=== PATIENT | female | born 1945 | race Caucasian/White ===

== ENCOUNTER 2017-03-03 07:35 | Day surgery (SDC) | payer OTHER ==
[2017-03-03] MEDS ORDERED: PALONOSETRON HCL 0.25 MG in SODIUM CHLORIDE 50 ML IVPB ONE (10:00)
[2017-03-03] MEDS ORDERED: DEXAMETHASONE INJECTION 10 MG in SODIUM CHLORIDE 50 ML IVPB ONE (10:00)
[2017-03-03 10:13] LABS: BASOPHIL 0.4 % (0-2.0); EOSINOPHIL 3.6 % (0-4.5); MCH 24.8 pg (25.7-33.7); MCHC 31.6 g/dl (32.0-36.0); MEAN CELL VOLUME 78.6 fl (80-96); MEAN PLT VOLUME 6.2 fl (7.5-11.1); PLATELET COUNT 403 K/MM3 (134-434); RDW 15.3 % (11.6-15.6); WHITE BLOOD COUNT 11.8 K/mm3 (4.0-10.0)
[2017-03-03] MEDS ORDERED: LEUCOVORIN INJECTION - 656 MG in DEXTROSE 5%-WATER - 250 ML IVPB ONE (10:30)
[2017-03-03] MEDS ORDERED: OXALIPLATIN 140 MG in DEXTROSE 5%-WATER - 500 ML IV ONE (10:30)
[2017-03-03 10:50] LABS: ALBUMIN 3.2 g/dl (3.4-5.0); ANION GAP 10 (8-16); CALCIUM 8.6 mg/dL (8.5-10.1); CO2 28 mmol/L (21-32); CREATININE 0.8 mg/dL (0.55-1.02); GLUCOSE,RANDOM 105 mg/dL (74-106); MAGNESIUM 2.2 mg/dL (1.8-2.4); SGOT/AST 11 U/L (15-37); SGPT/ALT 20 U/L (12-78)
[2017-03-03 10:53] LABS: ALK PHOS 112 U/L (45-117); BILIRUBIN,TOTAL 0.3 mg/dL (0.2-1.0)
[2017-03-03 11:14] LABS: BILIRUBIN,DIRECT < 0.2 mg/dL (0.0-0.2)
[2017-03-03] MEDS ORDERED: FLUOROURACIL 3,925 MG in SODIUM CHLORIDE 13.5 ML IV ONE (12:30)
[2017-03-03 16:40] VITALS: BP 140/69; PULSE 68; TEMP 98.7
== END 2017-03-03 16:30 | disposition home or self-care (01) ==
LOC: JONCCHEMO 07:35 → J7W 11:45 → JONCCHEMO 16:30
PROVIDERS: ATTEND Internal Medicine Hematology & Oncology
DX: Z51.11 Encounter for antineoplastic chemotherapy (principal); C17.0 Malignant neoplasm of duodenum
CPT/HCPCS: 36415; 80053; 80076; 83735; 85025; 96375; 96413; 96415; 96417; G0498; J2469; J9263

== ENCOUNTER 2017-03-05 07:43 | Day surgery (SDC) | payer OTHER ==
[2017-03-05 15:39] VITALS: TEMP 97.9
[2017-03-05 17:14] VITALS: BP 101/70; PULSE 89
[2017-03-05] MEDS ORDERED: PORTA CATH FLUSH 10 ML IVPUSH ONE (17:14)
== END 2017-03-05 14:30 | disposition home or self-care (01) ==
LOC: JONCCHEMO 07:43 → J7W 15:16
PROVIDERS: ATTEND Internal Medicine Hematology & Oncology
PROC: 0JPVXVZ Removal of Infusion Pump from Upper Extremity Subcutaneous Tissue and Fascia, External Approach (ICD-10-PCS; principal; 2017-03-05)
DX: Z53.8 Procedure and treatment not carried out for other reasons (principal)

== ENCOUNTER 2017-03-17 07:27 | Day surgery (SDC) | payer OTHER ==
[2017-03-17] MEDS ORDERED: DEXAMETHASONE INJECTION 10 MG in SODIUM CHLORIDE 50 ML IVPB ONE (08:00)
[2017-03-17] MEDS ORDERED: PALONOSETRON HCL 0.25 MG in SODIUM CHLORIDE 50 ML IVPB ONE (08:00)
[2017-03-17] MEDS ORDERED: LEUCOVORIN INJECTION - 656 MG in DEXTROSE 5%-WATER - 250 ML IVPB ONE (08:30)
[2017-03-17] MEDS ORDERED: OXALIPLATIN 140 MG in DEXTROSE 5%-WATER - 500 ML IV ONE (08:30)
[2017-03-17 10:18] LABS: BASOPHIL 0.6 % (0-2.0); EOSINOPHIL 3.9 % (0-4.5); MCH 24.8 pg (25.7-33.7); MCHC 32.2 g/dl (32.0-36.0); MEAN PLT VOLUME 6.1 fl (7.5-11.1); NEUTROPHILS 57.6 % (42.8-82.8); PLATELET COUNT 320 K/MM3 (134-434); RDW 15.1 % (11.6-15.6); WHITE BLOOD COUNT 7.9 K/mm3 (4.0-10.0)
[2017-03-17] MEDS ORDERED: FLUOROURACIL 3,925 MG in SODIUM CHLORIDE 13.5 ML IV ONE (10:30)
[2017-03-17 10:42] LABS: ALBUMIN 3.2 g/dl (3.4-5.0); ALK PHOS 94 U/L (45-117); ANION GAP 6 (8-16); BILIRUBIN,TOTAL 0.5 mg/dL (0.2-1.0); CALCIUM 8.8 mg/dL (8.5-10.1); CO2 30 mmol/L (21-32); CREATININE 0.7 mg/dL (0.55-1.02); GLUCOSE,RANDOM 100 mg/dL (74-106); MAGNESIUM 2.2 mg/dL (1.8-2.4); SGOT/AST 12 U/L (15-37); SGPT/ALT 21 U/L (12-78); TOT PROT 6.6 g/dl (6.4-8.2)
[2017-03-17 10:45] LABS: BILIRUBIN,DIRECT < 0.2 mg/dL (0.0-0.2)
[2017-03-17 12:22] VITALS: TEMP 98
[2017-03-17 15:20] VITALS: BP 128/76; PULSE 90
== END 2017-03-17 15:10 | disposition home or self-care (01) ==
LOC: JONCCHEMO 07:27 → J7W 11:36 → JONCCHEMO 15:10
PROVIDERS: ATTEND Internal Medicine Hematology & Oncology
DX: Z51.11 Encounter for antineoplastic chemotherapy (principal); C17.0 Malignant neoplasm of duodenum
CPT/HCPCS: 36415; 80053; 80076; 83735; 85025; 96367; 96375; 96413; 96415; 96417; G0498; J2469; J9263

== ENCOUNTER 2017-03-19 07:19 | Day surgery (SDC) | payer OTHER ==
[2017-03-19 13:35] VITALS: BP 102/60; PULSE 77; TEMP 98.3
[2017-03-19] MEDS ORDERED: PORTA CATH FLUSH 10 ML IVPUSH ONE (13:35)
== END 2017-03-19 13:39 | disposition home or self-care (01) ==
LOC: JONCCHEMO 07:19 → J7W 11:55 → JONCCHEMO 13:39
PROVIDERS: ATTEND Internal Medicine Hematology & Oncology
PROC: 0JPVXVZ Removal of Infusion Pump from Upper Extremity Subcutaneous Tissue and Fascia, External Approach (ICD-10-PCS; principal; 2017-03-19)
DX: Z53.8 Procedure and treatment not carried out for other reasons (principal)

== ENCOUNTER 2017-03-31 07:21 | Day surgery (SDC) | payer OTHER ==
[2017-03-31] MEDS ORDERED: PALONOSETRON HCL 0.25 MG in SODIUM CHLORIDE 50 ML IVPB ONE (08:00)
[2017-03-31] MEDS ORDERED: DEXAMETHASONE INJECTION 10 MG in SODIUM CHLORIDE 50 ML IVPB ONE (08:00)
[2017-03-31] MEDS ORDERED: OXALIPLATIN 140 MG in DEXTROSE 5%-WATER - 500 ML IV ONE (08:30)
[2017-03-31] MEDS ORDERED: LEUCOVORIN INJECTION - 656 MG in DEXTROSE 5%-WATER - 250 ML IVPB ONE (08:30)
[2017-03-31] MEDS ORDERED: FLUOROURACIL 3,925 MG in SODIUM CHLORIDE 13.5 ML IV ONE (10:30)
[2017-03-31 10:33] LABS: BASOPHIL 0.5 % (0-2.0); EOSINOPHIL 3.5 % (0-4.5); MCH 24.6 pg (25.7-33.7); MCHC 31.7 g/dl (32.0-36.0); MEAN CELL VOLUME 77.5 fl (80-96); MEAN PLT VOLUME 6.5 fl (7.5-11.1); NEUTROPHILS 55.6 % (42.8-82.8); PLATELET COUNT 327 K/MM3 (134-434); RDW 15.7 % (11.6-15.6); WHITE BLOOD COUNT 6.6 K/mm3 (4.0-10.0)
[2017-03-31 10:57] LABS: ANION GAP 5 (8-16); CALCIUM 8.4 mg/dL (8.5-10.1); CO2 30 mmol/L (21-32); CREATININE 0.6 mg/dL (0.55-1.02); GLUCOSE,RANDOM 84 mg/dL (74-106)
[2017-03-31 11:08] LABS: ALK PHOS 92 U/L (45-117); BILIRUBIN,DIRECT < 0.1 mg/dL (0.0-0.2); BILIRUBIN,TOTAL 0.3 mg/dL (0.2-1.0); SGOT/AST 18 U/L (15-37); SGPT/ALT 24 U/L (12-78); TOT PROT 6.7 g/dl (6.4-8.2)
[2017-03-31] MEDS ORDERED: FOSAPREPITANT DIMEGLUMINE 150 MG in SODIUM CHLORIDE 145 ML IVPB ONE (12:30)
[2017-03-31 13:57] VITALS: TEMP 98
[2017-03-31 16:39] VITALS: BP 134/74; PULSE 90
== END 2017-03-31 15:55 | disposition home or self-care (01) ==
LOC: JONCCHEMO 07:21 → J7W 11:34 → JONCCHEMO 15:55
PROVIDERS: ATTEND Internal Medicine Hematology & Oncology
DX: Z51.11 Encounter for antineoplastic chemotherapy (principal); C17.0 Malignant neoplasm of duodenum
CPT/HCPCS: 36415; 80053; 80076; 82378; 83735; 85025; 86301; 96367; 96375; 96413; 96415; 96417; G0498; J1453; J2469; J9263

== ENCOUNTER 2017-04-02 07:24 | Day surgery (SDC) | payer OTHER ==
[2017-04-02 15:31] VITALS: BP 103/61; PULSE 66; TEMP 98
== END 2017-04-02 15:31 | disposition home or self-care (01) ==
LOC: JONCCHEMO 07:24 → J7W 14:30 → JONCCHEMO 15:31
PROVIDERS: ATTEND Internal Medicine Hematology & Oncology
PROC: 0JPVXVZ Removal of Infusion Pump from Upper Extremity Subcutaneous Tissue and Fascia, External Approach (ICD-10-PCS; principal; 2017-04-02)
DX: Z53.8 Procedure and treatment not carried out for other reasons (principal)

== ENCOUNTER 2017-04-14 07:28 | Day surgery (SDC) | payer OTHER ==
[2017-04-14] MEDS ORDERED: PALONOSETRON HCL 0.25 MG in SODIUM CHLORIDE 50 ML IVPB ONE (10:00)
[2017-04-14] MEDS ORDERED: FOSAPREPITANT DIMEGLUMINE 150 MG in SODIUM CHLORIDE 150 ML IVPB ONE (10:00)
[2017-04-14] MEDS ORDERED: DEXAMETHASONE INJECTION 10 MG in SODIUM CHLORIDE 50 ML IVPB ONE (10:00)
[2017-04-14] MEDS ORDERED: WATER IV ONE (10:30)
[2017-04-14] MEDS ORDERED: OXALIPLATIN IV ONE (10:30)
[2017-04-14] MEDS ORDERED: LEUCOVORIN INJECTION - 628 MG in DEXTROSE 5%-WATER - 250 ML IVPB ONE (10:30)
[2017-04-14] MEDS ORDERED: DEXTROSE 5% IV ONE (10:30)
[2017-04-14 11:26] LABS: BASOPHIL 0.7 % (0-2.0); EOSINOPHIL 2.2 % (0-4.5); MCH 24.9 pg (25.7-33.7); MCHC 32.3 g/dl (32.0-36.0); MEAN CELL VOLUME 77.1 fl (80-96); MEAN PLT VOLUME 6.5 fl (7.5-11.1); NEUTROPHILS 51.9 % (42.8-82.8); PLATELET COUNT 232 K/MM3 (134-434); RDW 15.9 % (11.6-15.6); WHITE BLOOD COUNT 6.1 K/mm3 (4.0-10.0)
[2017-04-14 11:54] LABS: ALBUMIN 3.2 g/dl (3.4-5.0); ALK PHOS 107 U/L (45-117); ANION GAP 4 (8-16); BILIRUBIN,DIRECT 0.1 mg/dL (0.0-0.2); BILIRUBIN,TOTAL 0.4 mg/dL (0.2-1.0); CALCIUM 8.4 mg/dL (8.5-10.1); CO2 30 mmol/L (21-32); CREATININE 0.8 mg/dL (0.55-1.02); GLUCOSE,RANDOM 98 mg/dL (74-106); MAGNESIUM 2.2 mg/dL (1.8-2.4); SGOT/AST 25 U/L (15-37); SGPT/ALT 31 U/L (12-78); TOT PROT 6.9 g/dl (6.4-8.2)
[2017-04-14] MEDS ORDERED: FLUOROURACIL CP ONE (12:30)
[2017-04-14] MEDS ORDERED: SODIUM CHLORIDE CP ONE (12:30)
[2017-04-14 17:45] VITALS: BP 149/88; PULSE 94; TEMP 98.2
== END 2017-04-14 16:10 | disposition home or self-care (01) ==
LOC: JONCCHEMO 07:28 → J7W 12:46 → JONCCHEMO 16:10
PROVIDERS: ATTEND Internal Medicine Hematology & Oncology
DX: Z51.11 Encounter for antineoplastic chemotherapy (principal); C17.0 Malignant neoplasm of duodenum
CPT/HCPCS: 36415; 80053; 80076; 83735; 85025; 96367; 96375; 96413; 96415; 96417; G0498; J1453; J2469; J9263

== ENCOUNTER 2017-04-16 07:31 | Day surgery (SDC) | payer OTHER ==
[2017-04-16 14:52] VITALS: TEMP 98
[2017-04-16 14:57] VITALS: BP 110/64; PULSE 75
== END 2017-04-16 12:35 | disposition home or self-care (01) ==
LOC: JONCCHEMO 07:31
PROVIDERS: ATTEND Internal Medicine Hematology & Oncology
PROC: 0JPVXVZ Removal of Infusion Pump from Upper Extremity Subcutaneous Tissue and Fascia, External Approach (ICD-10-PCS; principal; 2017-04-16)
DX: Z53.8 Procedure and treatment not carried out for other reasons (principal)

== ENCOUNTER 2017-04-28 07:17 | Day surgery (SDC) | payer OTHER ==
[2017-04-28] MEDS ORDERED: PALONOSETRON HCL 0.25 MG in SODIUM CHLORIDE 50 ML IVPB ONE (10:00)
[2017-04-28] MEDS ORDERED: DEXAMETHASONE INJECTION 10 MG in SODIUM CHLORIDE 50 ML IVPB ONE (10:00)
[2017-04-28] MEDS ORDERED: FOSAPREPITANT DIMEGLUMINE 150 MG in SODIUM CHLORIDE 150 ML IVPB ONE (10:00)
[2017-04-28 10:29] LABS: BASOPHIL 0.5 % (0-2.0); EOSINOPHIL 2.4 % (0-4.5); MCHC 32.6 g/dl (32.0-36.0); MEAN CELL VOLUME 76.9 fl (80-96); MEAN PLT VOLUME 6.8 fl (7.5-11.1); PLATELET COUNT 159 K/MM3 (134-434); RDW 16.2 % (11.6-15.6)
[2017-04-28] MEDS ORDERED: LEUCOVORIN INJECTION - 628 MG in DEXTROSE 5%-WATER - 250 ML IVPB ONE (10:30)
[2017-04-28] MEDS ORDERED: DEXTROSE 5% IV ONE (10:30)
[2017-04-28] MEDS ORDERED: WATER IV ONE (10:30)
[2017-04-28] MEDS ORDERED: OXALIPLATIN IV ONE (10:30)
[2017-04-28 10:54] LABS: ALBUMIN 2.9 g/dl (3.4-5.0); ALK PHOS 105 U/L (45-117); ANION GAP 6 (8-16); BILIRUBIN,TOTAL 0.2 mg/dL (0.2-1.0); CALCIUM 8.5 mg/dL (8.5-10.1); CO2 28 mmol/L (21-32); CREATININE 0.8 mg/dL (0.55-1.02); GLUCOSE,RANDOM 173 mg/dL (74-106); MAGNESIUM 2.1 mg/dL (1.8-2.4); SGOT/AST 29 U/L (15-37); SGPT/ALT 33 U/L (12-78); TOT PROT 6.7 g/dl (6.4-8.2)
[2017-04-28 12:02] LABS: BILIRUBIN,DIRECT < 0.1 mg/dL (0.0-0.2)
[2017-04-28 12:03] LABS: FERRITIN 55.133 ng/ml (6.9-282.5)
[2017-04-28] MEDS ORDERED: SODIUM CHLORIDE CP ONE (12:30)
[2017-04-28] MEDS ORDERED: FLUOROURACIL CP ONE (12:30)
[2017-04-28 17:57] VITALS: BP 138/84; PULSE 94; TEMP 98.3
== END 2017-04-28 15:30 | disposition home or self-care (01) ==
LOC: JONCCHEMO 07:17
PROVIDERS: ATTEND Internal Medicine Hematology & Oncology
DX: Z51.11 Encounter for antineoplastic chemotherapy (principal); C17.0 Malignant neoplasm of duodenum
CPT/HCPCS: 36415; 80053; 80076; 82378; 82728; 83735; 85025; 86301; 96367; 96375; 96413; 96415; 96417; G0498; J1453; J2469; J9263

== ENCOUNTER 2017-04-30 07:39 | Day surgery (SDC) | payer OTHER ==
[2017-04-30] MEDS ORDERED: ONDANSETRON IVPUSH ONE (14:30)
[2017-04-30] MEDS ORDERED: SODIUM CHLORIDE IVPUSH ONE (14:30)
[2017-04-30] MEDS ORDERED: RANITIDINE IVPUSH ONE (14:30)
[2017-04-30] MEDS ORDERED: SODIUM CHLORIDE 1,000 ML IV ONE (14:30)
[2017-04-30] MEDS ORDERED: PORTA CATH FLUSH 10 ML IVPUSH ONE (16:39)
[2017-04-30 17:53] VITALS: BP 119/68; PULSE 89
[2017-04-30 17:55] VITALS: TEMP 98.5
== END 2017-04-30 17:05 | disposition home or self-care (01) ==
LOC: JONCCHEMO 07:39 → J7W 13:51 → JONCCHEMO 17:05
PROVIDERS: ATTEND Internal Medicine Hematology & Oncology
PROC: 3E043GC Introduction of Other Therapeutic Substance into Central Vein, Percutaneous Approach (ICD-10-PCS; principal; 2017-04-30)
DX: C17.0 Malignant neoplasm of duodenum (principal)
CPT/HCPCS: 96361; 96367; 96375

== ENCOUNTER 2017-05-12 06:57 | Day surgery (SDC) | payer OTHER ==
[2017-05-12] MEDS ORDERED: PALONOSETRON HCL 0.25 MG in SODIUM CHLORIDE 50 ML IVPB ONE (10:00)
[2017-05-12] MEDS ORDERED: DEXAMETHASONE INJECTION 10 MG in SODIUM CHLORIDE 50 ML IVPB ONE (10:00)
[2017-05-12] MEDS ORDERED: FOSAPREPITANT DIMEGLUMINE 150 MG in SODIUM CHLORIDE 150 ML IVPB ONE (10:00)
[2017-05-12] MEDS ORDERED: OXALIPLATIN IV ONE ×2 (10:30→14:00)
[2017-05-12] MEDS ORDERED: DEXTROSE 5% IV ONE ×2 (10:30→14:00)
[2017-05-12] MEDS ORDERED: WATER IV ONE ×2 (10:30→14:00)
[2017-05-12] MEDS ORDERED: LEUCOVORIN INJECTION - 628 MG in DEXTROSE 5%-WATER - 250 ML IVPB ONE (10:30)
[2017-05-12 11:24] LABS: EOSINOPHIL 2.1 % (0-4.5); MCH 24.6 pg (25.7-33.7); MCHC 32.5 g/dl (32.0-36.0); MEAN CELL VOLUME 75.8 fl (80-96); MEAN PLT VOLUME 6.7 fl (7.5-11.1); NEUTROPHILS 43.9 % (42.8-82.8); PLATELET COUNT 94 K/MM3 (134-434); RDW 16.7 % (11.6-15.6); WHITE BLOOD COUNT 4.2 K/mm3 (4.0-10.0)
[2017-05-12 11:49] LABS: ALBUMIN 2.9 g/dl (3.4-5.0); ALK PHOS 105 U/L (45-117); ANION GAP 5 (8-16); BILIRUBIN,DIRECT < 0.1 mg/dL (0.0-0.2); BILIRUBIN,TOTAL 0.3 mg/dL (0.2-1.0); CALCIUM 8.2 mg/dL (8.5-10.1); CO2 28 mmol/L (21-32); CREATININE 0.8 mg/dL (0.55-1.02); GLUCOSE,RANDOM 172 mg/dL (74-106); MAGNESIUM 2.1 mg/dL (1.8-2.4); SGOT/AST 25 U/L (15-37); SGPT/ALT 32 U/L (12-78); TOT PROT 6.4 g/dl (6.4-8.2)
[2017-05-12] MEDS ORDERED: FLUOROURACIL CP ONE ×2 (12:30→16:00)
[2017-05-12] MEDS ORDERED: SODIUM CHLORIDE CP ONE ×2 (12:30→16:00)
[2017-05-12 18:06] VITALS: BP 140/88; PULSE 103; TEMP 98.1
== END 2017-05-12 16:30 | disposition home or self-care (01) ==
LOC: JONCCHEMO 06:57 → J7W 12:12 → JONCCHEMO 16:30
PROVIDERS: ATTEND Internal Medicine Hematology & Oncology
DX: Z51.11 Encounter for antineoplastic chemotherapy (principal); C17.0 Malignant neoplasm of duodenum
CPT/HCPCS: 36415; 80053; 80076; 83735; 85025; 96367; 96375; 96413; 96415; 96417; G0498; J1453; J2469; J9263

== ENCOUNTER 2017-05-26 07:17 | Day surgery (SDC) | payer OTHER ==
[2017-05-26] MEDS ORDERED: FOSAPREPITANT DIMEGLUMINE 150 MG in SODIUM CHLORIDE 145 ML IVPB ONE (08:00)
[2017-05-26] MEDS ORDERED: DEXAMETHASONE INJECTION 10 MG in SODIUM CHLORIDE 50 ML IVPB ONE (08:30)
[2017-05-26] MEDS ORDERED: PALONOSETRON HCL 0.25 MG in SODIUM CHLORIDE 50 ML IVPB ONE (08:30)
[2017-05-26] MEDS ORDERED: LEUCOVORIN INJECTION - 628 MG in DEXTROSE 5%-WATER - 250 ML IVPB ONE (09:00)
[2017-05-26] MEDS ORDERED: WATER IV ONE ×2 (09:00)
[2017-05-26] MEDS ORDERED: WATER IVPB ONE (09:00)
[2017-05-26] MEDS ORDERED: DEXTROSE 5% IVPB ONE (09:00)
[2017-05-26] MEDS ORDERED: DEXTROSE 5% IV ONE ×2 (09:00)
[2017-05-26] MEDS ORDERED: LEUCOVORIN IVPB ONE (09:00)
[2017-05-26] MEDS ORDERED: OXALIPLATIN IV ONE ×2 (09:00)
[2017-05-26 10:49] LABS: BASOPHIL 0.5 % (0-2.0); EOSINOPHIL 1.8 % (0-4.5); MCH 24.6 pg (25.7-33.7); MCHC 31.9 g/dl (32.0-36.0); MEAN CELL VOLUME 77.2 fl (80-96); NEUTROPHILS 44.5 % (42.8-82.8); PLATELET COUNT 103 K/MM3 (134-434); RDW 18.1 % (11.6-15.6); WHITE BLOOD COUNT 3.9 K/mm3 (4.0-10.0)
[2017-05-26] MEDS ORDERED: FLUOROURACIL CP ONE (11:00)
[2017-05-26] MEDS ORDERED: SODIUM CHLORIDE CP ONE (11:00)
[2017-05-26] MEDS ORDERED: FLUOROURACIL IV ONE (11:00)
[2017-05-26] MEDS ORDERED: SODIUM CHLORIDE IV ONE (11:00)
[2017-05-26 11:49] LABS: ALBUMIN 2.9 g/dl (3.4-5.0); ANION GAP 10 (8-16); BILIRUBIN,DIRECT < 0.2 mg/dL (0.0-0.2); CO2 25 mmol/L (21-32); GLUCOSE,RANDOM 172 mg/dL (74-106)
[2017-05-26 11:53] LABS: ALK PHOS 102 U/L (45-117); BILIRUBIN,TOTAL 0.5 mg/dL (0.2-1.0); CREATININE 0.8 mg/dL (0.55-1.02); SGOT/AST 21 U/L (15-37); SGPT/ALT 26 U/L (12-78); TOT PROT 6.5 g/dl (6.4-8.2)
[2017-05-26] MEDS ORDERED: PORTA CATH FLUSH 10 ML IVPUSH ONE (13:37)
[2017-05-26 18:49] VITALS: PULSE 102
[2017-05-26 19:04] VITALS: BP 147/84; TEMP 98
== END 2017-05-26 17:45 | disposition home or self-care (01) ==
LOC: JONCCHEMO 07:17 → J7W 12:37 → JONCCHEMO 17:45
PROVIDERS: ATTEND Internal Medicine Hematology & Oncology
DX: Z51.11 Encounter for antineoplastic chemotherapy (principal); C17.0 Malignant neoplasm of duodenum
CPT/HCPCS: 36415; 80053; 80076; 83735; 85025; 96367; 96375; 96413; 96415; 96417; G0498; J1453; J2469; J9263

== ENCOUNTER 2017-05-28 07:24 | Day surgery (SDC) | payer OTHER ==
[2017-05-28] MEDS ORDERED: SODIUM CHLORIDE 1,000 ML IV SCH (14:30)
[2017-05-28 16:41] VITALS: TEMP 98.4
[2017-05-28 16:49] VITALS: BP 119/70; PULSE 77
[2017-05-28] MEDS ORDERED: PORTA CATH FLUSH 10 ML IVPUSH ONE (16:49)
== END 2017-05-28 16:20 | disposition home or self-care (01) ==
LOC: JONCCHEMO 07:24 → J7W 14:00 → JONCCHEMO 16:10
PROVIDERS: ATTEND Internal Medicine Hematology & Oncology
PROC: 0JPVXVZ Removal of Infusion Pump from Upper Extremity Subcutaneous Tissue and Fascia, External Approach (ICD-10-PCS; principal; 2017-05-28)
DX: Z53.8 Procedure and treatment not carried out for other reasons (principal)
CPT/HCPCS: 96361

== ENCOUNTER 2017-06-03 08:59 | Day surgery (SDC) | payer OTHER ==
[2017-06-03 12:03] VITALS: BP 119/66; PULSE 92; TEMP 98.5
[2017-06-03] MEDS ORDERED: TBO-FILGRASTIM 480 MCG/0.8 ML DISP.SYRIN SQ ONE (12:30)
== END 2017-06-03 12:45 | disposition home or self-care (01) ==
LOC: JONCNONCHE 08:59 → J7W 11:31 → JONCNONCHE 12:45
PROVIDERS: ATTEND Internal Medicine Hematology & Oncology
PROC: 3E013GC Introduction of Other Therapeutic Substance into Subcutaneous Tissue, Percutaneous Approach (ICD-10-PCS; principal; 2017-06-03)
DX: C17.0 Malignant neoplasm of duodenum (principal); Z76.89 Persons encountering health services in other specified circumstances
CPT/HCPCS: 96372; J1447

== ENCOUNTER 2017-06-09 12:43 | Day surgery (SDC) | payer OTHER ==
[2017-06-09 11:47] LABS: BASOPHIL 0.6 % (0-2.0); EOSINOPHIL 2.1 % (0-4.5); MCH 25.3 pg (25.7-33.7); MCHC 32.2 g/dl (32.0-36.0); MEAN CELL VOLUME 78.4 fl (80-96); MEAN PLT VOLUME 6.8 fl (7.5-11.1); NEUTROPHILS 42.3 % (42.8-82.8); PLATELET COUNT 118 K/MM3 (134-434); RDW 20.3 % (11.6-15.6); WHITE BLOOD COUNT 4.8 K/mm3 (4.0-10.0)
[2017-06-09 12:25] LABS: ANION GAP 7 (8-16); BILIRUBIN,DIRECT < 0.2 mg/dL (0.0-0.2); BILIRUBIN,TOTAL 0.3 mg/dL (0.2-1.0); CALCIUM 7.9 mg/dL (8.5-10.1); CO2 26 mmol/L (21-32); CREATININE 0.8 mg/dL (0.55-1.02); GLUCOSE,RANDOM 134 mg/dL (74-106); SGOT/AST 18 U/L (15-37); SGPT/ALT 24 U/L (12-78); TOT PROT 6.7 g/dl (6.4-8.2)
[2017-06-09 12:26] LABS: ALK PHOS 107 U/L (45-117)
[~2017-06-09 12:43] MED LIST: DEXAMETHASONE INJECTION 10 MG in SODIUM CHLORIDE 50 ML IVPB ONE; DEXTROSE 5% IV ONE; DEXTROSE 5% IVPB ONE; FLUOROURACIL CP ONE; FOSAPREPITANT DIMEGLUMINE 150 MG in SODIUM CHLORIDE 145 ML IVPB ONE; LEUCOVORIN IVPB ONE; OXALIPLATIN IV ONE; PALONOSETRON HCL 0.25 MG in SODIUM CHLORIDE 50 ML IVPB ONE; SODIUM CHLORIDE CP ONE; WATER IV ONE; WATER IVPB ONE
[2017-06-09 16:31] VITALS: BP 152/90; PULSE 102; TEMP 98
[2017-06-09] MEDS ORDERED: PORTA CATH FLUSH 10 ML IVPUSH ONE ×2 (17:17→18:38)
== END 2017-06-09 17:30 | disposition home or self-care (01) ==
LOC: J7W 12:43 → JONCCHEMO 12:43
PROVIDERS: ATTEND Internal Medicine Hematology & Oncology
DX: Z51.11 Encounter for antineoplastic chemotherapy (principal); C17.0 Malignant neoplasm of duodenum
CPT/HCPCS: 36415; 80053; 80076; 82378; 83735; 85025; 96367; 96375; 96413; 96415; 96417; G0498; J1453; J2469; J9263

== ENCOUNTER 2017-06-11 07:26 | Day surgery (SDC) | payer OTHER ==
[2017-06-11] MEDS ORDERED: SODIUM CHLORIDE 1,000 ML IV SCH (14:15)
[2017-06-11 16:43] VITALS: TEMP 97.5
[2017-06-11 16:50] VITALS: BP 145/75; PULSE 90
[2017-06-11] MEDS ORDERED: PORTA CATH FLUSH 10 ML IVPUSH ONE (16:50)
== END 2017-06-11 16:45 | disposition home or self-care (01) ==
LOC: JONCNONCHE 07:26 → J7W 13:58 → JONCNONCHE 16:45
PROVIDERS: ATTEND Internal Medicine Hematology & Oncology
PROC: 0JPVXVZ Removal of Infusion Pump from Upper Extremity Subcutaneous Tissue and Fascia, External Approach (ICD-10-PCS; principal; 2017-06-11)
DX: Z53.8 Procedure and treatment not carried out for other reasons (principal)
CPT/HCPCS: 96415; 96417

== ENCOUNTER 2017-06-12 08:03 | Day surgery (SDC) | payer OTHER ==
[2017-06-12 14:30] VITALS: BP 124/78; PULSE 90; TEMP 98.4
[2017-06-12] MEDS ORDERED: TBO-FILGRASTIM 480 MCG/0.8 ML DISP.SYRIN SQ ONE (15:00)
== END 2017-06-12 15:05 | disposition home or self-care (01) ==
LOC: JONCNONCHE 08:03 → J7W 14:15 → JONCNONCHE 15:05
PROVIDERS: ATTEND Internal Medicine Hematology & Oncology
PROC: 3E013GC Introduction of Other Therapeutic Substance into Subcutaneous Tissue, Percutaneous Approach (ICD-10-PCS; principal; 2017-06-12)
DX: C17.0 Malignant neoplasm of duodenum (principal)
CPT/HCPCS: 96372; J1447

== ENCOUNTER 2017-06-23 07:23 | Day surgery (SDC) | payer OTHER ==
[2017-06-23] MEDS ORDERED: PALONOSETRON HCL 0.25 MG in SODIUM CHLORIDE 50 ML IVPB ONE (08:00)
[2017-06-23] MEDS ORDERED: DEXAMETHASONE INJECTION 10 MG in SODIUM CHLORIDE 50 ML IVPB ONE (08:00)
[2017-06-23] MEDS ORDERED: FOSAPREPITANT DIMEGLUMINE 150 MG in SODIUM CHLORIDE 145 ML IVPB ONE (08:00)
[2017-06-23] MEDS ORDERED: LEUCOVORIN IVPB ONE (08:30)
[2017-06-23] MEDS ORDERED: WATER IVPB ONE (08:30)
[2017-06-23] MEDS ORDERED: OXALIPLATIN IV ONE (08:30)
[2017-06-23] MEDS ORDERED: DEXTROSE 5% IVPB ONE (08:30)
[2017-06-23] MEDS ORDERED: DEXTROSE 5% IV ONE (08:30)
[2017-06-23] MEDS ORDERED: WATER IV ONE (08:30)
[2017-06-23] MEDS ORDERED: SODIUM CHLORIDE IV ONE (10:30)
[2017-06-23] MEDS ORDERED: FLUOROURACIL IV ONE (10:30)
[2017-06-23 11:49] LABS: EOSINOPHIL 2.2 % (0-4.5); MCH 25.7 pg (25.7-33.7); MEAN CELL VOLUME 80.4 fl (80-96); MEAN PLT VOLUME 6.9 fl (7.5-11.1); NEUTROPHILS 48.7 % (42.8-82.8); PLATELET COUNT 141 K/MM3 (134-434); RDW 21.9 % (11.6-15.6); WHITE BLOOD COUNT 4.4 K/mm3 (4.0-10.0)
[2017-06-23 12:18] LABS: ALBUMIN 3.1 g/dl (3.4-5.0); ALK PHOS 107 U/L (45-117); ANION GAP 8 (8-16); BILIRUBIN,DIRECT < 0.2 mg/dL (0.0-0.2); BILIRUBIN,TOTAL 0.3 mg/dL (0.2-1.0); CALCIUM 8.4 mg/dL (8.5-10.1); CO2 26 mmol/L (21-32); CREATININE 0.8 mg/dL (0.55-1.02); GLUCOSE,RANDOM 163 mg/dL (74-106); SGOT/AST 22 U/L (15-37); SGPT/ALT 27 U/L (12-78)
[2017-06-23 12:21] LABS: FERRITIN 44.175 ng/ml (6.9-282.5)
[2017-06-23] MEDS ORDERED: DEXAMETHASONE SOD PHOSPHATE 10 MG/1 ML VIAL IVPB ONE ×2 (12:45→13:15)
[2017-06-23 13:40] VITALS: TEMP 98.1
[2017-06-23] MEDS ORDERED: PORTA CATH FLUSH 10 ML IVPUSH ONE (13:40)
[2017-06-23 16:18] VITALS: BP 126/80; PULSE 84
== END 2017-06-23 16:20 | disposition home or self-care (01) ==
LOC: JONCCHEMO 07:23 → J7W 13:08 → JONCCHEMO 16:20
PROVIDERS: ATTEND Internal Medicine Hematology & Oncology
DX: Z51.11 Encounter for antineoplastic chemotherapy (principal); C17.0 Malignant neoplasm of duodenum
CPT/HCPCS: 36415; 80053; 80076; 82728; 83615; 85025; 85044; 96366; 96367; 96375; 96413; 96415; 96417; G0498; J1453; J2469; J9263

== ENCOUNTER 2017-06-25 07:29 | Day surgery (SDC) | payer OTHER ==
[2017-06-25] MEDS ORDERED: SODIUM CHLORIDE 1,000 ML IV SCH (14:15)
[2017-06-25] MEDS ORDERED: SODIUM CHLORIDE 1,000 ML IV ONE (14:30)
[2017-06-25 17:21] VITALS: TEMP 97.3
[2017-06-25 17:22] VITALS: BP 128/69; PULSE 79
[2017-06-25] MEDS ORDERED: PORTA CATH FLUSH 10 ML IVPUSH ONE (17:25)
== END 2017-06-25 16:45 | disposition home or self-care (01) ==
LOC: JONCNONCHE 07:29 → J7W 13:56 → JONCNONCHE 16:45
PROVIDERS: ATTEND Internal Medicine Hematology & Oncology
PROC: 0JPVXVZ Removal of Infusion Pump from Upper Extremity Subcutaneous Tissue and Fascia, External Approach (ICD-10-PCS; principal; 2017-06-25)
DX: Z53.8 Procedure and treatment not carried out for other reasons (principal)
CPT/HCPCS: 96361

== ENCOUNTER 2017-06-26 07:29 | Day surgery (SDC) | payer OTHER ==
[2017-06-26] MEDS ORDERED: TBO-FILGRASTIM 480 MCG/0.8 ML DISP.SYRIN SQ ONE (08:00)
[2017-06-26 13:46] VITALS: BP 129/73; PULSE 96; TEMP 98.1
== END 2017-06-26 14:15 | disposition home or self-care (01) ==
LOC: JONCNONCHE 07:29 → J7W 13:25 → JONCNONCHE 14:15
PROVIDERS: ATTEND Internal Medicine Hematology & Oncology
PROC: 3E013GC Introduction of Other Therapeutic Substance into Subcutaneous Tissue, Percutaneous Approach (ICD-10-PCS; principal; 2017-06-26)
DX: C17.0 Malignant neoplasm of duodenum (principal); Z76.89 Persons encountering health services in other specified circumstances
CPT/HCPCS: 96372; J1447

== ENCOUNTER 2017-07-14 07:40 | Day surgery (SDC) | payer OTHER ==
[2017-07-14] MEDS ORDERED: PALONOSETRON HCL 0.25 MG in SODIUM CHLORIDE 50 ML IVPB ONE (10:00)
[2017-07-14] MEDS ORDERED: DEXAMETHASONE INJECTION 10 MG in SODIUM CHLORIDE 50 ML IVPB ONE (10:00)
[2017-07-14] MEDS ORDERED: FOSAPREPITANT DIMEGLUMINE 150 MG in SODIUM CHLORIDE 150 ML IVPB ONE (10:00)
[2017-07-14] MEDS ORDERED: WATER IVPB ONE (10:30)
[2017-07-14] MEDS ORDERED: WATER IV ONE (10:30)
[2017-07-14] MEDS ORDERED: DEXTROSE 5% IV ONE (10:30)
[2017-07-14] MEDS ORDERED: OXALIPLATIN IV ONE (10:30)
[2017-07-14] MEDS ORDERED: DEXTROSE 5% IVPB ONE (10:30)
[2017-07-14] MEDS ORDERED: LEUCOVORIN IVPB ONE (10:30)
[2017-07-14] MEDS ORDERED: PALONOSETRON HCL 0.25 MG/5 ML VIAL IVPUSH ONE (10:45)
[2017-07-14 11:26] LABS: BASO % 1.1 % (0-2.0); EOS % 2.5 % (0-4.5); HEMATOCRIT 33.4 % (32.4-45.2); HEMOGLOBIN 10.6 GM/dL (10.7-15.3); LYMPH % 31.8 % (8-40); MCH 26.2 pg (25.7-33.7); MCHC 31.9 g/dl (32.0-36.0); MEAN CELL VOLUME 82.1 fl (80-96); MEAN PLT VOLUME 6.5 fl (7.5-11.1); MONO % 15.3 % (3.8-10.2); NEUT % 49.3 % (42.8-82.8); PLATELET COUNT 230 K/MM3 (134-434); RBC 4.07 M/mm3 (3.60-5.2); RDW 21.5 % (11.6-15.6); WHITE BLOOD COUNT 5.7 K/mm3 (4.0-10.0)
[2017-07-14 11:59] LABS: ALBUMIN 3.2 g/dl (3.4-5.0); ALK PHOS 105 U/L (45-117); ANION GAP 11 (8-16); BILIRUBIN,DIRECT < 0.2 mg/dL (0.0-0.2); BILIRUBIN,TOTAL 0.3 mg/dL (0.2-1.0); BLOOD UREA NITROGEN 17 mg/dL (7-18); CALCIUM 8.5 mg/dL (8.5-10.1); CHLORIDE 102 mmol/L (98-107); CO2 26 mmol/L (21-32); CREATININE 0.8 mg/dL (0.55-1.02); GLUCOSE,RANDOM 113 mg/dL (74-106); POTASSIUM 4.4 mmol/L (3.5-5.1); SGOT/AST 25 U/L (15-37); SGPT/ALT 30 U/L (12-78); SODIUM 139 mmol/L (136-145)
[2017-07-14] MEDS ORDERED: SODIUM CHLORIDE IV ONE (12:30)
[2017-07-14] MEDS ORDERED: FLUOROURACIL IV ONE (12:30)
[2017-07-14] MEDS ORDERED: DEXAMETHASONE INJECTION 20 MG in DEXTROSE 5%-WATER - 50 ML IVPB ONE (13:00)
[2017-07-14] MEDS ORDERED: PORTA CATH FLUSH 10 ML IVPUSH ONE (15:56)
[2017-07-14 15:57] VITALS: TEMP 98.3
[2017-07-14] MEDS ORDERED: SODIUM CHLORIDE 500 ML IV SCH (16:15)
[2017-07-14 18:08] VITALS: BP 133/80; PULSE 97
[2017-07-16 06:08] LABS: CARCINOEMBRYONIC ANTIGEN 5.1 ng/mL (0.0-4.7)
== END 2017-07-14 18:15 | disposition home or self-care (01) ==
LOC: JONCCHEMO 07:40 → J7W 12:08 → JONCCHEMO 18:15
PROVIDERS: ATTEND Internal Medicine Hematology & Oncology
DX: Z51.11 Encounter for antineoplastic chemotherapy (principal); C17.0 Malignant neoplasm of duodenum
CPT/HCPCS: 36415; 80053; 80076; 82378; 82728; 83540; 83550; 85025; 96366; 96367; 96375; 96413; 96415; 96417; J1453; J2469; J9263

== ENCOUNTER 2017-07-16 07:57 | Day surgery (SDC) | payer OTHER ==
[2017-07-16] MEDS ORDERED: SODIUM CHLORIDE 1,000 ML IV SCH (15:00)
[2017-07-16 15:53] VITALS: PULSE 84; TEMP 98.1
[2017-07-16] MEDS ORDERED: PORTA CATH FLUSH 10 ML IVPUSH ONE (15:53)
[2017-07-16 16:44] VITALS: BP 121/69
== END 2017-07-16 16:44 | disposition home or self-care (01) ==
LOC: JONCCHEMO 07:57 → J7W 14:45 → JONCCHEMO 16:44
PROVIDERS: ATTEND Internal Medicine Hematology & Oncology
PROC: 3E0337Z Introduction of Electrolytic and Water Balance Substance into Peripheral Vein, Percutaneous Approach (ICD-10-PCS; principal; 2017-07-16)
DX: C17.0 Malignant neoplasm of duodenum (principal)
CPT/HCPCS: 96360; 96361

== ENCOUNTER 2017-07-17 07:46 | Day surgery (SDC) | payer OTHER ==
[2017-07-17] MEDS ORDERED: TBO-FILGRASTIM 480 MCG/0.8 ML DISP.SYRIN SQ ONE (15:45)
[2017-07-17 17:37] VITALS: BP 134/83; PULSE 102; TEMP 98.2
== END 2017-07-17 15:55 | disposition home or self-care (01) ==
LOC: JONCNONCHE 07:46 → J7W 15:22 → JONCNONCHE 15:55
PROVIDERS: ATTEND Internal Medicine Hematology & Oncology
PROC: 3E013GC Introduction of Other Therapeutic Substance into Subcutaneous Tissue, Percutaneous Approach (ICD-10-PCS; principal; 2017-07-17)
DX: C17.0 Malignant neoplasm of duodenum (principal)
CPT/HCPCS: 96372; 96401; J1447

== ENCOUNTER 2017-07-28 07:34 | Day surgery (SDC) | payer OTHER ==
[2017-07-28] MEDS ORDERED: FOSAPREPITANT DIMEGLUMINE 150 MG in SODIUM CHLORIDE 150 ML IVPB ONE (10:00)
[2017-07-28] MEDS ORDERED: PALONOSETRON HCL 0.25 MG/5 ML VIAL IVPUSH ONE (10:00)
[2017-07-28] MEDS ORDERED: DEXAMETHASONE INJECTION 20 MG, DIPHENHYDRAMINE 25 MG in SODIUM CHLORIDE 100 ML IVPB ONE (10:00)
[2017-07-28] MEDS ORDERED: LEUCOVORIN IVPB ONE (10:30)
[2017-07-28] MEDS ORDERED: WATER IV ONE (10:30)
[2017-07-28] MEDS ORDERED: WATER IVPB ONE (10:30)
[2017-07-28] MEDS ORDERED: DEXTROSE 5% IV ONE (10:30)
[2017-07-28] MEDS ORDERED: DEXTROSE 5% IVPB ONE (10:30)
[2017-07-28] MEDS ORDERED: OXALIPLATIN IV ONE (10:30)
[2017-07-28] MEDS ORDERED: FLUOROURACIL CP ONE (12:30)
[2017-07-28] MEDS ORDERED: SODIUM CHLORIDE CP ONE (12:30)
[2017-07-28 13:42] LABS: BASO % 0.6 % (0-2.0); EOS % 2.5 % (0-4.5); HEMATOCRIT 33.2 % (32.4-45.2); HEMOGLOBIN 10.4 GM/dL (10.7-15.3); MCHC 31.4 g/dl (32.0-36.0); MEAN CELL VOLUME 82.9 fl (80-96); MEAN PLT VOLUME 7.3 fl (7.5-11.1); MONO % 8.8 % (3.8-10.2); NEUT % 61.1 % (42.8-82.8); PLATELET COUNT 178 K/MM3 (134-434); RDW 20.2 % (11.6-15.6)
[2017-07-28 14:04] LABS: ANION GAP 9 (8-16); BLOOD UREA NITROGEN 14 mg/dL (7-18); CALCIUM 8.3 mg/dL (8.5-10.1); CHLORIDE 103 mmol/L (98-107); CO2 26 mmol/L (21-32); CREATININE 0.7 mg/dL (0.55-1.02); GLUCOSE,RANDOM 110 mg/dL (74-106); POTASSIUM 4.2 mmol/L (3.5-5.1); SGOT/AST 21 U/L (15-37); SGPT/ALT 23 U/L (12-78); SODIUM 138 mmol/L (136-145)
[2017-07-28 14:06] LABS: ALK PHOS 93 U/L (45-117); BILIRUBIN,TOTAL 0.3 mg/dL (0.2-1.0); TOT PROT 6.8 g/dl (6.4-8.2)
[2017-07-28 15:26] LABS: MAGNESIUM 1.9 mg/dL (1.8-2.4)
[2017-07-28 15:48] VITALS: TEMP 98
[2017-07-28] MEDS ORDERED: PORTA CATH FLUSH 10 ML IVPUSH ONE (15:48)
[2017-07-28 17:00] VITALS: BP 145/83; PULSE 108
[2017-07-29 06:06] LABS: SERUM IRON SATURATION 17 % (15-55); TOTAL IRON BINDING CAPACITY 370 ug/dL (250-450); UIBC 308 ug/dL (118-369)
== END 2017-07-28 17:01 | disposition home or self-care (01) ==
LOC: JONCCHEMO 07:34 → J7W 12:03 → JONCCHEMO 17:01
PROVIDERS: ATTEND Internal Medicine Hematology & Oncology
DX: Z51.11 Encounter for antineoplastic chemotherapy (principal); C17.0 Malignant neoplasm of duodenum
CPT/HCPCS: 36415; 80053; 82378; 82728; 83540; 83550; 83735; 85025; 96367; 96375; 96413; 96415; 96417; G0498; J1100; J2469; J9263

== ENCOUNTER 2017-07-30 07:26 | Day surgery (SDC) | payer OTHER ==
[2017-07-30] MEDS ORDERED: SODIUM CHLORIDE 500 ML IV ONE (14:45)
[2017-07-30 16:44] VITALS: TEMP 98.7
[2017-07-30] MEDS ORDERED: PORTA CATH FLUSH 10 ML IVPUSH ONE (16:48)
[2017-07-30 16:49] VITALS: BP 142/77; PULSE 95
== END 2017-07-30 17:05 | disposition home or self-care (01) ==
LOC: JONCNONCHE 07:26 → J7W 14:15 → JONCNONCHE 17:05
PROVIDERS: ATTEND Internal Medicine Hematology & Oncology
PROC: 0JPVXVZ Removal of Infusion Pump from Upper Extremity Subcutaneous Tissue and Fascia, External Approach (ICD-10-PCS; principal; 2017-07-30)
DX: Z53.8 Procedure and treatment not carried out for other reasons (principal)
CPT/HCPCS: 96361

== ENCOUNTER 2017-07-31 15:00 | Day surgery (SDC) | payer OTHER ==
[2017-07-31] MEDS ORDERED: TBO-FILGRASTIM 480 MCG/0.8 ML DISP.SYRIN SQ ONE (15:45)
[2017-07-31 15:47] VITALS: BP 129/78; PULSE 87; TEMP 97.9
== END 2017-07-31 16:00 | disposition home or self-care (01) ==
LOC: J7W 15:00 → JONCNONCHE 15:00
PROVIDERS: ATTEND Internal Medicine Hematology & Oncology
PROC: 3E013NZ Introduction of Analgesics, Hypnotics, Sedatives into Subcutaneous Tissue, Percutaneous Approach (ICD-10-PCS; principal; 2017-07-31)
DX: C17.0 Malignant neoplasm of duodenum (principal); Z76.89 Persons encountering health services in other specified circumstances
CPT/HCPCS: 96372; J1447

== ENCOUNTER 2017-08-11 07:30 | Day surgery (SDC) | payer OTHER ==
[2017-08-11] MEDS ORDERED: DEXAMETHASONE INJECTION 20 MG, DIPHENHYDRAMINE 50 MG in SODIUM CHLORIDE 100 ML IVPB ONE (08:00)
[2017-08-11] MEDS ORDERED: PALONOSETRON HCL 0.25 MG/5 ML VIAL IVPUSH ONE (08:00)
[2017-08-11] MEDS ORDERED: WATER IV ONE (08:30)
[2017-08-11] MEDS ORDERED: DEXTROSE 5% IV ONE (08:30)
[2017-08-11] MEDS ORDERED: LEUCOVORIN IVPB ONE (08:30)
[2017-08-11] MEDS ORDERED: DEXTROSE 5% IVPB ONE (08:30)
[2017-08-11] MEDS ORDERED: WATER IVPB ONE (08:30)
[2017-08-11] MEDS ORDERED: OXALIPLATIN IV ONE (08:30)
[2017-08-11] MEDS ORDERED: FLUOROURACIL CP ONE (10:30)
[2017-08-11] MEDS ORDERED: SODIUM CHLORIDE CP ONE (10:30)
[2017-08-11 11:03] LABS: BASO % 0.9 % (0-2.0); EOS % 2.9 % (0-4.5); HEMATOCRIT 32.6 % (32.4-45.2); HEMOGLOBIN 10.4 GM/dL (10.7-15.3); LYMPH % 28.6 % (8-40); MCH 26.2 pg (25.7-33.7); MCHC 31.8 g/dl (32.0-36.0); MEAN CELL VOLUME 82.2 fl (80-96); MEAN PLT VOLUME 6.6 fl (7.5-11.1); MONO % 10.2 % (3.8-10.2); NEUT % 57.4 % (42.8-82.8); PLATELET COUNT 174 K/MM3 (134-434); RBC 3.97 M/mm3 (3.60-5.2); RDW 19.5 % (11.6-15.6); WHITE BLOOD COUNT 5.6 K/mm3 (4.0-10.0)
[2017-08-11 11:47] LABS: ALBUMIN 3.3 g/dl (3.4-5.0); ANION GAP 10 (8-16); BILIRUBIN,DIRECT < 0.2 mg/dL (0.0-0.2); BILIRUBIN,TOTAL 0.4 mg/dL (0.2-1.0); BLOOD UREA NITROGEN 16 mg/dL (7-18); CALCIUM 8.3 mg/dL (8.5-10.1); CHLORIDE 103 mmol/L (98-107); CO2 25 mmol/L (21-32); CREATININE 0.8 mg/dL (0.55-1.02); GLUCOSE,RANDOM 150 mg/dL (74-106); MAGNESIUM 1.9 mg/dL (1.8-2.4); SGOT/AST 20 U/L (15-37); SGPT/ALT 24 U/L (12-78); SODIUM 138 mmol/L (136-145); TOT PROT 6.8 g/dl (6.4-8.2)
[2017-08-11 11:48] LABS: ALK PHOS 88 U/L (45-117)
[2017-08-11 13:08] VITALS: TEMP 97.9
[2017-08-11] MEDS ORDERED: PORTA CATH FLUSH 10 ML IVPUSH ONE (13:11)
[2017-08-11 14:54] VITALS: BP 146/85; PULSE 91
== END 2017-08-11 15:00 | disposition home or self-care (01) ==
LOC: JONCCHEMO 07:30 → J7W 11:50 → JONCCHEMO 15:00
PROVIDERS: ATTEND Internal Medicine Hematology & Oncology
DX: Z51.11 Encounter for antineoplastic chemotherapy (principal); C17.0 Malignant neoplasm of duodenum; E11.9 Type 2 diabetes mellitus without complications
CPT/HCPCS: 36415; 80053; 80076; 82378; 83735; 85025; 96366; 96367; 96375; 96413; 96415; 96417; G0498; J1100; J2469; J9263

== ENCOUNTER 2017-08-13 07:34 | Day surgery (SDC) | payer OTHER ==
[2017-08-13] MEDS ORDERED: SODIUM CHLORIDE 1,000 ML IV SCH (14:09)
[2017-08-13 18:49] VITALS: BP 120/76; PULSE 88; TEMP 98.3
[2017-08-13] MEDS ORDERED: PORTA CATH FLUSH 10 ML IVPUSH ONE ×2 (18:54→19:13)
== END 2017-08-13 16:40 | disposition home or self-care (01) ==
LOC: JONCNONCHE 07:34 → J7W 14:03 → JONCNONCHE 16:40
PROVIDERS: ATTEND Internal Medicine Hematology & Oncology
PROC: 3E0437Z Introduction of Electrolytic and Water Balance Substance into Central Vein, Percutaneous Approach (ICD-10-PCS; principal; 2017-08-13)
PROC: 0JPVXVZ Removal of Infusion Pump from Upper Extremity Subcutaneous Tissue and Fascia, External Approach (ICD-10-PCS; 2017-08-13)
DX: C17.0 Malignant neoplasm of duodenum (principal); E11.9 Type 2 diabetes mellitus without complications
CPT/HCPCS: 96360; 96361; J7030

== ENCOUNTER 2017-08-14 07:47 | Day surgery (SDC) | payer OTHER ==
[2017-08-14] MEDS ORDERED: TBO-FILGRASTIM 480 MCG/0.8 ML DISP.SYRIN SQ ONE (14:45)
[2017-08-14 14:55] VITALS: BP 115/71; PULSE 75; TEMP 97.7
== END 2017-08-14 20:29 | disposition home or self-care (01) ==
LOC: JONCCHEMO 07:47 → J7W 14:38 → JONCCHEMO 20:29
PROVIDERS: ATTEND Internal Medicine Hematology & Oncology
PROC: 3E013GC Introduction of Other Therapeutic Substance into Subcutaneous Tissue, Percutaneous Approach (ICD-10-PCS; principal; 2017-08-14)
DX: C17.0 Malignant neoplasm of duodenum (principal); E11.9 Type 2 diabetes mellitus without complications; Z76.89 Persons encountering health services in other specified circumstances
CPT/HCPCS: 96372; J1447

== ENCOUNTER 2017-08-25 07:37 | Day surgery (SDC) | payer OTHER ==
[2017-08-25] MEDS ORDERED: DEXAMETHASONE INJECTION 20 MG, DIPHENHYDRAMINE 50 MG in SODIUM CHLORIDE 100 ML IVPB ONE (08:00)
[2017-08-25] MEDS ORDERED: PALONOSETRON HCL 0.25 MG/5 ML VIAL IVPUSH ONE (08:00)
[2017-08-25] MEDS ORDERED: OXALIPLATIN IV ONE (08:30)
[2017-08-25] MEDS ORDERED: WATER IVPB ONE (08:30)
[2017-08-25] MEDS ORDERED: DEXTROSE 5% IVPB ONE (08:30)
[2017-08-25] MEDS ORDERED: LEUCOVORIN IVPB ONE (08:30)
[2017-08-25] MEDS ORDERED: WATER IV ONE (08:30)
[2017-08-25] MEDS ORDERED: DEXTROSE 5% IV ONE (08:30)
[2017-08-25] MEDS ORDERED: FLUOROURACIL IV ONE (10:30)
[2017-08-25] MEDS ORDERED: SODIUM CHLORIDE IV ONE (10:30)
[2017-08-25 11:30] LABS: EOS % 3.1 % (0-4.5); HEMATOCRIT 32.8 % (32.4-45.2); HEMOGLOBIN 10.5 GM/dL (10.7-15.3); LYMPH % 30.3 % (8-40); MCH 26.2 pg (25.7-33.7); MCHC 32.1 g/dl (32.0-36.0); MEAN CELL VOLUME 81.8 fl (80-96); MEAN PLT VOLUME 6.5 fl (7.5-11.1); MONO % 12.6 % (3.8-10.2); PLATELET COUNT 197 K/MM3 (134-434); RBC 4.01 M/mm3 (3.60-5.2); RDW 18.3 % (11.6-15.6); WHITE BLOOD COUNT 5.2 K/mm3 (4.0-10.0)
[2017-08-25 11:57] LABS: ALBUMIN 3.3 g/dl (3.4-5.0); ANION GAP 9 (8-16); BILIRUBIN,DIRECT < 0.2 mg/dL (0.0-0.2); BLOOD UREA NITROGEN 21 mg/dL (7-18); CALCIUM 8.1 mg/dL (8.5-10.1); CHLORIDE 103 mmol/L (98-107); CO2 26 mmol/L (21-32); CREATININE 0.9 mg/dL (0.55-1.02); GLUCOSE,RANDOM 115 mg/dL (74-106); MAGNESIUM 1.9 mg/dL (1.8-2.4); POTASSIUM 4.3 mmol/L (3.5-5.1); SGOT/AST 17 U/L (15-37); SGPT/ALT 23 U/L (12-78); SODIUM 138 mmol/L (136-145)
[2017-08-25 11:59] LABS: ALK PHOS 92 U/L (45-117); BILIRUBIN,TOTAL 0.4 mg/dL (0.2-1.0); TOT PROT 7.1 g/dl (6.4-8.2)
[2017-08-25 14:55] VITALS: TEMP 97.9
[2017-08-25 18:02] VITALS: BP 142/66; PULSE 101
== END 2017-08-25 16:15 | disposition home or self-care (01) ==
LOC: JONCCHEMO 07:37 → J7W 12:29 → JONCCHEMO 16:15
PROVIDERS: ATTEND Internal Medicine Hematology & Oncology
DX: Z51.11 Encounter for antineoplastic chemotherapy (principal); C17.0 Malignant neoplasm of duodenum
CPT/HCPCS: 36415; 80053; 80076; 83735; 85025; 96367; 96375; 96413; 96415; 96417; G0498; J1100; J2469; J9263

== ENCOUNTER 2017-08-27 07:39 | Day surgery (SDC) | payer OTHER ==
[2017-08-27] MEDS ORDERED: SODIUM CHLORIDE 1,000 ML IV SCH (15:30)
[2017-08-27] MEDS ORDERED: SODIUM CHLORIDE 500 ML IV SCH (15:30)
[2017-08-27 18:42] VITALS: PULSE 86; TEMP 98
[2017-08-27 18:46] VITALS: BP 110/70
[2017-08-27] MEDS ORDERED: PORTA CATH FLUSH 10 ML IVPUSH ONE (18:51)
== END 2017-08-27 17:15 | disposition home or self-care (01) ==
LOC: JONCNONCHE 07:39 → J7W 14:37 → JONCNONCHE 17:15
PROVIDERS: ATTEND Internal Medicine Hematology & Oncology
PROC: 3E0437Z Introduction of Electrolytic and Water Balance Substance into Central Vein, Percutaneous Approach (ICD-10-PCS; principal; 2017-08-27)
DX: C17.0 Malignant neoplasm of duodenum (principal)
CPT/HCPCS: 36415; 80061; 83721; 84443; 96360; 96361

== ENCOUNTER 2017-09-08 07:28 | Day surgery (SDC) | payer OTHER ==
[2017-09-08] MEDS ORDERED: DIPHENHYDRAMINE 50 MG, DEXAMETHASONE INJECTION 20 MG in SODIUM CHLORIDE 100 ML IVPB ONE (10:00)
[2017-09-08] MEDS ORDERED: PALONOSETRON HCL 0.25 MG/5 ML VIAL IVPUSH ONE (10:00)
[2017-09-08] MEDS ORDERED: WATER IVPB ONE (10:30)
[2017-09-08] MEDS ORDERED: DEXTROSE 5% IV ONE (10:30)
[2017-09-08] MEDS ORDERED: OXALIPLATIN IV ONE (10:30)
[2017-09-08] MEDS ORDERED: LEUCOVORIN IVPB ONE (10:30)
[2017-09-08] MEDS ORDERED: DEXTROSE 5% IVPB ONE (10:30)
[2017-09-08] MEDS ORDERED: WATER IV ONE (10:30)
[2017-09-08 11:31] LABS: BASO % 0.7 % (0-2.0); EOS % 5.1 % (0-4.5); HEMATOCRIT 32.7 % (32.4-45.2); HEMOGLOBIN 10.4 GM/dL (10.7-15.3); MCH 25.7 pg (25.7-33.7); MCHC 31.6 g/dl (32.0-36.0); MEAN CELL VOLUME 81.3 fl (80-96); MEAN PLT VOLUME 6.9 fl (7.5-11.1); MONO % 15.3 % (3.8-10.2); NEUT % 51.9 % (42.8-82.8); PLATELET COUNT 204 K/MM3 (134-434); RBC 4.03 M/mm3 (3.60-5.2); RDW 17.8 % (11.6-15.6); WHITE BLOOD COUNT 6.1 K/mm3 (4.0-10.0)
[2017-09-08 12:10] LABS: ALBUMIN 3.1 g/dl (3.4-5.0); ALK PHOS 88 U/L (45-117); ANION GAP 9 (8-16); BILIRUBIN,TOTAL 0.3 mg/dL (0.2-1.0); BLOOD UREA NITROGEN 21 mg/dL (7-18); CHLORIDE 104 mmol/L (98-107); CO2 24 mmol/L (21-32); CREATININE 0.8 mg/dL (0.55-1.02); GLUCOSE,RANDOM 119 mg/dL (74-106); MAGNESIUM 2.1 mg/dL (1.8-2.4); POTASSIUM 4.2 mmol/L (3.5-5.1); SGOT/AST 17 U/L (15-37); SGPT/ALT 20 U/L (12-78); SODIUM 137 mmol/L (136-145); TOT PROT 6.8 g/dl (6.4-8.2)
[2017-09-08] MEDS ORDERED: SODIUM CHLORIDE CP ONE (12:30)
[2017-09-08] MEDS ORDERED: FLUOROURACIL CP ONE (12:30)
[2017-09-08 12:39] LABS: BILIRUBIN,DIRECT < 0.2 mg/dL (0.0-0.2)
[2017-09-08 18:13] VITALS: TEMP 97.3
[2017-09-08 18:17] VITALS: BP 131/76; PULSE 76
== END 2017-09-08 16:15 | disposition home or self-care (01) ==
LOC: JONCCHEMO 07:28 → J7W 13:16 → JONCCHEMO 16:15
PROVIDERS: ATTEND Internal Medicine Hematology & Oncology
PROC: 3E04305 Introduction of Other Antineoplastic into Central Vein, Percutaneous Approach (ICD-10-PCS; principal; 2017-09-08)
PROC: 3E043GC Introduction of Other Therapeutic Substance into Central Vein, Percutaneous Approach (ICD-10-PCS; 2017-09-08)
PROC: 3E0437Z Introduction of Electrolytic and Water Balance Substance into Central Vein, Percutaneous Approach (ICD-10-PCS; 2017-09-08)
DX: Z51.11 Encounter for antineoplastic chemotherapy (principal); C17.0 Malignant neoplasm of duodenum
CPT/HCPCS: 36415; 73560-TC-RT-FY; 80053; 80076; 83735; 85025; 93971-TC; 96367; 96375; 96413; 96415; 96417; J1100; J2469; J9263

== ENCOUNTER 2017-09-10 07:36 | Day surgery (SDC) | payer OTHER ==
[2017-09-10] MEDS ORDERED: SODIUM CHLORIDE 1,000 ML IV SCH (15:00)
[2017-09-10 15:13] VITALS: TEMP 97.8
[2017-09-10] MEDS ORDERED: PORTA CATH FLUSH 10 ML IVPUSH ONE (15:13)
[2017-09-10 16:43] VITALS: BP 112/77; PULSE 86
== END 2017-09-10 16:44 | disposition home or self-care (01) ==
LOC: JONCNONCHE 07:36 → J7W 14:25 → JONCNONCHE 16:44
PROVIDERS: ATTEND Internal Medicine Hematology & Oncology
PROC: 3E0437Z Introduction of Electrolytic and Water Balance Substance into Central Vein, Percutaneous Approach (ICD-10-PCS; principal; 2017-09-10)
DX: C17.0 Malignant neoplasm of duodenum (principal)
CPT/HCPCS: 96361

== ENCOUNTER 2017-10-14 08:03 | Day surgery (SDC) | payer OTHER ==
[~2017-10-14 08:03] MED LIST changes: +ATROPINE SULFATE 1 MG/10 ML DISP.SYRIN SQ ONE; -DEXAMETHASONE INJECTION 10 MG in SODIUM CHLORIDE 50 ML IVPB ONE; +DEXAMETHASONE SOD PHOSPHATE 10 MG/1 ML VIAL IVPUSH ONE; -DEXTROSE 5% IV ONE; -DEXTROSE 5% IVPB ONE; -FLUOROURACIL CP ONE; -FOSAPREPITANT DIMEGLUMINE 150 MG in SODIUM CHLORIDE 145 ML IVPB ONE; -LEUCOVORIN IVPB ONE; -OXALIPLATIN IV ONE; -PALONOSETRON HCL 0.25 MG in SODIUM CHLORIDE 50 ML IVPB ONE; +PALONOSETRON HCL 0.25 MG/5 ML VIAL IVPUSH ONE; -SODIUM CHLORIDE CP ONE; -WATER IV ONE; -WATER IVPB ONE
[2017-10-14] MEDS ORDERED: WATER IVPB ONE (08:30)
[2017-10-14] MEDS ORDERED: IRINOTECAN HCL 200 MG in DEXTROSE 5%-WATER - 500 ML IVPB ONE (08:30)
[2017-10-14] MEDS ORDERED: LEUCOVORIN IVPB ONE (08:30)
[2017-10-14] MEDS ORDERED: DEXTROSE 5% IVPB ONE (08:30)
[2017-10-14 09:44] LABS: BASO % 0.5 % (0-2.0); EOS % 6.5 % (0-4.5); HEMATOCRIT 33.4 % (32.4-45.2); HEMOGLOBIN 10.7 GM/dL (10.7-15.3); LYMPH % 24.2 % (8-40); MCH 25.2 pg (25.7-33.7); MEAN CELL VOLUME 78.8 fl (80-96); MEAN PLT VOLUME 6.6 fl (7.5-11.1); MONO % 9.5 % (3.8-10.2); NEUT % 59.3 % (42.8-82.8); PLATELET COUNT 272 K/MM3 (134-434); RBC 4.24 M/mm3 (3.60-5.2); RDW 17.7 % (11.6-15.6); WHITE BLOOD COUNT 9.3 K/mm3 (4.0-10.0)
[2017-10-14] MEDS ORDERED: SODIUM CHLORIDE IV ONE (10:00)
[2017-10-14] MEDS ORDERED: FLUOROURACIL IV ONE (10:00)
[2017-10-14 10:15] LABS: ALBUMIN 3.3 g/dl (3.4-5.0); ALK PHOS 101 U/L (45-117); ANION GAP 5 (8-16); BILIRUBIN,DIRECT < 0.2 mg/dL (0.0-0.2); BILIRUBIN,TOTAL 0.1 mg/dL (0.2-1.0); BLOOD UREA NITROGEN 19 mg/dL (7-18); CALCIUM 8.7 mg/dL (8.5-10.1); CHLORIDE 104 mmol/L (98-107); CO2 28 mmol/L (21-32); CREATININE 0.8 mg/dL (0.55-1.02); GLUCOSE,RANDOM 115 mg/dL (74-106); POTASSIUM 4.3 mmol/L (3.5-5.1); SGOT/AST 17 U/L (15-37); SGPT/ALT 21 U/L (12-78); SODIUM 137 mmol/L (136-145); TOT PROT 7.3 g/dl (6.4-8.2)
[2017-10-14 13:50] VITALS: TEMP 98
[2017-10-14 13:53] VITALS: BP 147/87; PULSE 97
[2017-10-14 14:17] LABS: ALBUMIN 3.4 g/dl (3.4-5.0); ALK PHOS 102 U/L (45-117); BILIRUBIN,DIRECT < 0.2 mg/dL (0.0-0.2); BILIRUBIN,TOTAL 0.3 mg/dL (0.2-1.0); SGOT/AST 20 U/L (15-37); SGPT/ALT 21 U/L (12-78); TOT PROT 7.5 g/dl (6.4-8.2)
== END 2017-10-14 13:25 | disposition home or self-care (01) ==
LOC: JONCCHEMO 08:03 → J7W 10:35 → JONCCHEMO 13:25
PROVIDERS: ATTEND Internal Medicine Hematology & Oncology
DX: Z51.11 Encounter for antineoplastic chemotherapy (principal); C17.0 Malignant neoplasm of duodenum
CPT/HCPCS: 36415; 80053; 80076; 83735; 85025; 96367; 96375; 96413; 96415; 96417; G0498; J1100; J2469; J9206

== ENCOUNTER 2017-10-16 07:35 | Day surgery (SDC) | payer OTHER ==
[2017-10-16] MEDS ORDERED: SODIUM CHLORIDE 1,000 ML IV ONE (13:00)
[2017-10-16 16:41] VITALS: TEMP 98.2
[2017-10-16] MEDS ORDERED: PORTA CATH FLUSH 10 ML IVPUSH ONE (16:41)
[2017-10-16 16:43] VITALS: BP 115/64; PULSE 73
== END 2017-10-16 14:10 | disposition home or self-care (01) ==
LOC: JONCCHEMO 07:35
PROVIDERS: ATTEND Internal Medicine Hematology & Oncology
PROC: 3E0337Z Introduction of Electrolytic and Water Balance Substance into Peripheral Vein, Percutaneous Approach (ICD-10-PCS; principal; 2017-10-16)
DX: C17.0 Malignant neoplasm of duodenum (principal)
CPT/HCPCS: 96361; 96365; J7030

== ENCOUNTER 2017-10-27 07:20 | Day surgery (SDC) | payer OTHER ==
[2017-10-27] MEDS ORDERED: PALONOSETRON HCL 0.25 MG/5 ML VIAL IVPUSH ONE (10:00)
[2017-10-27] MEDS ORDERED: DEXAMETHASONE SOD PHOSPHATE 10 MG/1 ML VIAL IVPUSH ONE (10:00)
[2017-10-27] MEDS ORDERED: ATROPINE SO4 0.4 MG/1 ML VIAL IVPUSH ONE (10:00)
[2017-10-27] MEDS ORDERED: SODIUM CHLORIDE IV ONE (10:30)
[2017-10-27] MEDS ORDERED: BEVACIZUMAB IV ONE (10:30)
[2017-10-27] MEDS ORDERED: IRINOTECAN HCL 210 MG in DEXTROSE 5%-WATER - 500 ML IVPB ONE (11:00)
[2017-10-27] MEDS ORDERED: WATER IVPB ONE (11:00)
[2017-10-27] MEDS ORDERED: DEXTROSE 5% IVPB ONE (11:00)
[2017-10-27] MEDS ORDERED: LEUCOVORIN IVPB ONE (11:00)
[2017-10-27 11:56] LABS: BASO % 0.3 % (0-2.0); EOS % 5.6 % (0-4.5); HEMOGLOBIN 10.3 GM/dL (10.7-15.3); MCH 25.1 pg (25.7-33.7); MCHC 32.3 g/dl (32.0-36.0); MEAN CELL VOLUME 77.9 fl (80-96); MEAN PLT VOLUME 6.6 fl (7.5-11.1); NEUT % 55.1 % (42.8-82.8); PLATELET COUNT 267 K/MM3 (134-434); RBC 4.11 M/mm3 (3.60-5.2); RDW 18.1 % (11.6-15.6); WHITE BLOOD COUNT 5.7 K/mm3 (4.0-10.0)
[2017-10-27 12:17] LABS: ALBUMIN 3.3 g/dl (3.4-5.0); ALK PHOS 86 U/L (45-117); ANION GAP 9 (8-16); BILIRUBIN,DIRECT < 0.2 mg/dL (0.0-0.2); BILIRUBIN,TOTAL 0.3 mg/dL (0.2-1.0); BLOOD UREA NITROGEN 20 mg/dL (7-18); CALCIUM 8.5 mg/dL (8.5-10.1); CHLORIDE 104 mmol/L (98-107); CO2 26 mmol/L (21-32); CREATININE 0.8 mg/dL (0.55-1.02); GLUCOSE,RANDOM 101 mg/dL (74-106); MAGNESIUM 2.2 mg/dL (1.8-2.4); POTASSIUM 4.5 mmol/L (3.5-5.1); SGOT/AST 17 U/L (15-37); SGPT/ALT 20 U/L (12-78); SODIUM 139 mmol/L (136-145); TOT PROT 7.1 g/dl (6.4-8.2)
[2017-10-27] MEDS ORDERED: SODIUM CHLORIDE CP ONE (12:30)
[2017-10-27] MEDS ORDERED: FLUOROURACIL CP ONE (12:30)
[2017-10-27 16:21] VITALS: BP 142/82; PULSE 96; TEMP 97.8
== END 2017-10-27 16:00 | disposition home or self-care (01) ==
LOC: JONCCHEMO 07:20 → J7W 12:35 → JONCCHEMO 16:00
PROVIDERS: ATTEND Internal Medicine Hematology & Oncology
DX: Z51.11 Encounter for antineoplastic chemotherapy (principal); C17.0 Malignant neoplasm of duodenum
CPT/HCPCS: 36415; 80053; 80076; 82378; 83735; 85025; 96366; 96367; 96375; 96413; 96415; 96417; G0498; J1100; J2469; J9206

== ENCOUNTER 2017-10-29 07:33 | Day surgery (SDC) | payer OTHER ==
[2017-10-29] MEDS ORDERED: SODIUM CHLORIDE 1,000 ML IV SCH (14:00)
[2017-10-29 16:10] VITALS: TEMP 97.7
[2017-10-29 16:21] VITALS: BP 138/75; PULSE 83
== END 2017-10-29 16:25 | disposition home or self-care (01) ==
LOC: JONCNONCHE 07:33 → J7W 14:11 → JONCNONCHE 16:25
PROVIDERS: ATTEND Internal Medicine Hematology & Oncology
PROC: 3E0437Z Introduction of Electrolytic and Water Balance Substance into Central Vein, Percutaneous Approach (ICD-10-PCS; principal; 2017-10-29)
DX: C17.0 Malignant neoplasm of duodenum (principal)
CPT/HCPCS: 96360; 96361; J7030

== ENCOUNTER 2017-11-10 07:23 | Day surgery (SDC) | payer OTHER ==
[2017-11-10] MEDS ORDERED: PALONOSETRON HCL 0.25 MG/5 ML VIAL IVPUSH ONE (10:00)
[2017-11-10] MEDS ORDERED: DEXAMETHASONE INJECTION 10 MG in SODIUM CHLORIDE 50 ML IVPB ONE (10:00)
[2017-11-10] MEDS ORDERED: IRINOTECAN HCL 210 MG in DEXTROSE 5%-WATER - 500 ML IVPB ONE (10:30)
[2017-11-10] MEDS ORDERED: LEUCOVORIN IVPB ONE (10:30)
[2017-11-10] MEDS ORDERED: DEXTROSE 5% IVPB ONE (10:30)
[2017-11-10] MEDS ORDERED: WATER IVPB ONE (10:30)
[2017-11-10 11:56] LABS: BASO % 0.6 % (0-2.0); EOS % 4.2 % (0-4.5); HEMATOCRIT 32.6 % (32.4-45.2); HEMOGLOBIN 10.5 GM/dL (10.7-15.3); MCH 24.8 pg (25.7-33.7); MCHC 32.2 g/dl (32.0-36.0); MEAN CELL VOLUME 77.1 fl (80-96); MEAN PLT VOLUME 6.8 fl (7.5-11.1); MONO % 13.1 % (3.8-10.2); NEUT % 49.1 % (42.8-82.8); PLATELET COUNT 278 K/MM3 (134-434); RBC 4.23 M/mm3 (3.60-5.2); RDW 18.8 % (11.6-15.6); WHITE BLOOD COUNT 5.4 K/mm3 (4.0-10.0)
[2017-11-10] MEDS ORDERED: FLUOROURACIL CP ONE (12:00)
[2017-11-10] MEDS ORDERED: SODIUM CHLORIDE CP ONE (12:00)
[2017-11-10 12:19] LABS: ALBUMIN 3.5 g/dl (3.4-5.0); ANION GAP 9 (8-16); BILIRUBIN,DIRECT < 0.2 mg/dL (0.0-0.2); BILIRUBIN,TOTAL 0.3 mg/dL (0.2-1.0); BLOOD UREA NITROGEN 18 mg/dL (7-18); CALCIUM 8.9 mg/dL (8.5-10.1); CHLORIDE 104 mmol/L (98-107); CO2 29 mmol/L (21-32); GLUCOSE,RANDOM 91 mg/dL (74-106); MAGNESIUM 2.1 mg/dL (1.8-2.4); POTASSIUM 4.6 mmol/L (3.5-5.1); SGOT/AST 19 U/L (15-37); SGPT/ALT 21 U/L (12-78); SODIUM 142 mmol/L (136-145)
[2017-11-10 12:20] LABS: ALK PHOS 87 U/L (45-117)
[2017-11-10] MEDS ORDERED: ATROPINE SULFATE 1 MG/10 ML DISP.SYRIN IVPUSH ONE (15:30)
[2017-11-10 17:58] VITALS: BP 139/85; PULSE 90; TEMP 98.2
== END 2017-11-10 20:36 | disposition home or self-care (01) ==
LOC: JONCCHEMO 07:23 → J7W 12:07 → JONCCHEMO 20:36
PROVIDERS: ATTEND Internal Medicine Hematology & Oncology
PROC: 3E04305 Introduction of Other Antineoplastic into Central Vein, Percutaneous Approach (ICD-10-PCS; principal; 2017-11-10)
PROC: 3E04305 Introduction of Other Antineoplastic into Central Vein, Percutaneous Approach (ICD-10-PCS; 2017-11-10)
PROC: 3E033GC Introduction of Other Therapeutic Substance into Peripheral Vein, Percutaneous Approach (ICD-10-PCS; 2017-11-10)
DX: Z51.11 Encounter for antineoplastic chemotherapy (principal); C17.0 Malignant neoplasm of duodenum; I10 Essential (primary) hypertension; E78.00 Pure hypercholesterolemia, unspecified
CPT/HCPCS: 36415; 80053; 80076; 83735; 85025; 96368; 96375; 96413; 96415; 96417; G0498; J1100; J2469; J9206

== ENCOUNTER 2017-11-12 07:45 | Day surgery (SDC) | payer OTHER ==
[2017-11-12] MEDS ORDERED: SODIUM CHLORIDE 500 ML IV SCH (15:00)
[2017-11-12 15:41] VITALS: BP 96/59; PULSE 74; TEMP 98.1
[2017-11-12] MEDS ORDERED: PORTA CATH FLUSH 10 ML IVPUSH ONE (16:00)
== END 2017-11-12 16:00 | disposition home or self-care (01) ==
LOC: JONCNONCHE 07:45 → J7W 14:09 → JONCNONCHE 16:00
PROVIDERS: ATTEND Internal Medicine Hematology & Oncology
PROC: 3E0337Z Introduction of Electrolytic and Water Balance Substance into Peripheral Vein, Percutaneous Approach (ICD-10-PCS; principal; 2017-11-12)
DX: C17.0 Malignant neoplasm of duodenum (principal)
CPT/HCPCS: 96360; 96361; J7030

== ENCOUNTER 2017-11-24 07:34 | Day surgery (SDC) | payer OTHER ==
[2017-11-24] MEDS ORDERED: ATROPINE SULFATE 1 MG/10 ML DISP.SYRIN SQ ONE (08:00)
[2017-11-24] MEDS ORDERED: DEXAMETHASONE INJECTION 10 MG in SODIUM CHLORIDE 50 ML IVPB ONE (08:00)
[2017-11-24] MEDS ORDERED: PALONOSETRON HCL 0.25 MG/5 ML VIAL IVPUSH ONE (08:00)
[2017-11-24] MEDS ORDERED: IRINOTECAN HCL 210 MG in DEXTROSE 5%-WATER - 500 ML IVPB ONE (08:30)
[2017-11-24] MEDS ORDERED: DEXTROSE 5% IVPB ONE (08:30)
[2017-11-24] MEDS ORDERED: WATER IVPB ONE (08:30)
[2017-11-24] MEDS ORDERED: LEUCOVORIN IVPB ONE (08:30)
[2017-11-24] MEDS ORDERED: SODIUM CHLORIDE IV ONE (10:00)
[2017-11-24] MEDS ORDERED: FLUOROURACIL IV ONE (10:00)
[2017-11-24 10:35] LABS: BASO % 0.5 % (0-2.0); EOS % 3.9 % (0-4.5); HEMATOCRIT 31.4 % (32.4-45.2); HEMOGLOBIN 10.1 GM/dL (10.7-15.3); LYMPH % 30.1 % (8-40); MCH 24.6 pg (25.7-33.7); MCHC 32.2 g/dl (32.0-36.0); MEAN CELL VOLUME 76.4 fl (80-96); MEAN PLT VOLUME 6.6 fl (7.5-11.1); MONO % 11.4 % (3.8-10.2); NEUT % 54.1 % (42.8-82.8); PLATELET COUNT 299 K/MM3 (134-434); RBC 4.11 M/mm3 (3.60-5.2); RDW 18.6 % (11.6-15.6); WHITE BLOOD COUNT 5.5 K/mm3 (4.0-10.0)
[2017-11-24 11:00] LABS: ALBUMIN 3.2 g/dl (3.4-5.0); ALK PHOS 88 U/L (45-117); ANION GAP 9 (8-16); BILIRUBIN,DIRECT < 0.2 mg/dL (0.0-0.2); BILIRUBIN,TOTAL 0.3 mg/dL (0.2-1.0); BLOOD UREA NITROGEN 18 mg/dL (7-18); CALCIUM 8.4 mg/dL (8.5-10.1); CHLORIDE 103 mmol/L (98-107); CO2 28 mmol/L (21-32); GLUCOSE,RANDOM 125 mg/dL (74-106); MAGNESIUM 2.1 mg/dL (1.8-2.4); POTASSIUM 4.3 mmol/L (3.5-5.1); SGOT/AST 16 U/L (15-37); SGPT/ALT 18 U/L (12-78); SODIUM 140 mmol/L (136-145); TOT PROT 6.6 g/dl (6.4-8.2)
[2017-11-24] MEDS ORDERED: PORTA CATH FLUSH 10 ML IVPUSH ONE (16:15)
[2017-11-24 16:28] VITALS: BP 143/85; PULSE 90; TEMP 98.2
== END 2017-11-24 14:45 | disposition home or self-care (01) ==
LOC: JONCCHEMO 07:34 → J7W 11:30 → JONCCHEMO 14:45
PROVIDERS: ATTEND Internal Medicine Hematology & Oncology
PROC: 3E04305 Introduction of Other Antineoplastic into Central Vein, Percutaneous Approach (ICD-10-PCS; principal; 2017-11-24)
PROC: 3E04305 Introduction of Other Antineoplastic into Central Vein, Percutaneous Approach (ICD-10-PCS; 2017-11-24)
PROC: 3E043GC Introduction of Other Therapeutic Substance into Central Vein, Percutaneous Approach (ICD-10-PCS; 2017-11-24)
PROC: 3E013GC Introduction of Other Therapeutic Substance into Subcutaneous Tissue, Percutaneous Approach (ICD-10-PCS; 2017-11-24)
DX: Z51.11 Encounter for antineoplastic chemotherapy (principal); C17.0 Malignant neoplasm of duodenum; I10 Essential (primary) hypertension; E78.00 Pure hypercholesterolemia, unspecified
CPT/HCPCS: 36415; 80053; 80076; 82378; 83735; 85025; 96366; 96367; 96372; 96375; 96413; 96415; 96417; G0498; J1100; J2469; J9206

== ENCOUNTER 2017-11-26 07:37 | Day surgery (SDC) | payer OTHER ==
[2017-11-26] MEDS ORDERED: SODIUM CHLORIDE 1,000 ML IV SCH (14:30)
[2017-11-26] MEDS ORDERED: ONDANSETRON 4 MG/2 ML VIAL IVPUSH ONE (14:30)
[2017-11-26 17:22] VITALS: TEMP 98.2
[2017-11-26 17:28] VITALS: BP 130/69; PULSE 80
[2017-11-26] MEDS ORDERED: PORTA CATH FLUSH 10 ML IVPUSH ONE (17:30)
== END 2017-11-26 16:30 | disposition home or self-care (01) ==
LOC: JONCNONCHE 07:37 → J7W 13:53 → JONCNONCHE 16:30
PROVIDERS: ATTEND Internal Medicine Hematology & Oncology
PROC: 3E0437Z Introduction of Electrolytic and Water Balance Substance into Central Vein, Percutaneous Approach (ICD-10-PCS; principal; 2017-11-26)
DX: C17.0 Malignant neoplasm of duodenum (principal); I10 Essential (primary) hypertension; E78.00 Pure hypercholesterolemia, unspecified
CPT/HCPCS: 96360; 96361; J7030

== ENCOUNTER 2017-12-08 07:57 | Day surgery (SDC) | payer OTHER ==
[2017-12-08] MEDS ORDERED: PALONOSETRON HCL 0.25 MG/5 ML VIAL IVPUSH ONE (08:00)
[2017-12-08] MEDS ORDERED: DEXAMETHASONE INJECTION 10 MG in SODIUM CHLORIDE 100 ML IVPB ONE (08:00)
[2017-12-08] MEDS ORDERED: ATROPINE SULFATE 1 MG/10 ML DISP.SYRIN IVPUSH ONE (08:00)
[2017-12-08] MEDS ORDERED: DEXTROSE 5% IVPB ONE (08:30)
[2017-12-08] MEDS ORDERED: LEUCOVORIN IVPB ONE (08:30)
[2017-12-08] MEDS ORDERED: WATER IVPB ONE (08:30)
[2017-12-08] MEDS ORDERED: IRINOTECAN HCL 210 MG in DEXTROSE 5%-WATER - 500 ML IVPB ONE (08:30)
[2017-12-08] MEDS ORDERED: SODIUM CHLORIDE CP ONE (10:00)
[2017-12-08] MEDS ORDERED: FLUOROURACIL CP ONE (10:00)
[2017-12-08 10:54] LABS: BASO % 0.5 % (0-2.0); EOS % 3.4 % (0-4.5); HEMATOCRIT 31.9 % (32.4-45.2); HEMOGLOBIN 10.4 GM/dL (10.7-15.3); MCH 24.9 pg (25.7-33.7); MCHC 32.7 g/dl (32.0-36.0); MEAN CELL VOLUME 76.3 fl (80-96); MEAN PLT VOLUME 6.6 fl (7.5-11.1); MONO % 11.5 % (3.8-10.2); NEUT % 54.6 % (42.8-82.8); PLATELET COUNT 304 K/MM3 (134-434); RBC 4.18 M/mm3 (3.60-5.2); RDW 19.7 % (11.6-15.6)
[2017-12-08 11:49] LABS: ALBUMIN 3.4 g/dl (3.4-5.0); ALK PHOS 95 U/L (45-117); ANION GAP 7 (8-16); BILIRUBIN,TOTAL 0.3 mg/dL (0.2-1.0); BLOOD UREA NITROGEN 17 mg/dL (7-18); CALCIUM 8.3 mg/dL (8.5-10.1); CHLORIDE 103 mmol/L (98-107); CO2 27 mmol/L (21-32); CREATININE 0.9 mg/dL (0.55-1.02); GLUCOSE,RANDOM 96 mg/dL (74-106); POTASSIUM 4.3 mmol/L (3.5-5.1); SGOT/AST 19 U/L (15-37); SGPT/ALT 19 U/L (12-78); SODIUM 137 mmol/L (136-145); TOT PROT 6.9 g/dl (6.4-8.2)
[2017-12-08 12:28] LABS: BILIRUBIN,DIRECT < 0.2 mg/dL (0.0-0.2); MAGNESIUM 2.3 mg/dL (1.8-2.4)
[2017-12-08 16:27] VITALS: TEMP 98.4
[2017-12-08] MEDS ORDERED: PORTA CATH FLUSH 10 ML IVPUSH ONE (17:15)
[2017-12-08 17:20] VITALS: BP 137/79; PULSE 89
== END 2017-12-08 15:10 | disposition home or self-care (01) ==
LOC: JONCCHEMO 07:57 → J7W 11:15 → JONCCHEMO 15:10
PROVIDERS: ATTEND Internal Medicine Hematology & Oncology
DX: Z51.11 Encounter for antineoplastic chemotherapy (principal); C17.0 Malignant neoplasm of duodenum
CPT/HCPCS: 36415; 80053; 80076; 83735; 85025; 96366; 96367; 96375; 96413; 96415; 96417; G0498; J1100; J2469; J9206

== ENCOUNTER 2017-12-10 07:26 | Day surgery (SDC) | payer OTHER ==
[2017-12-10] MEDS ORDERED: SODIUM CHLORIDE 1,000 ML IV SCH (14:15)
[2017-12-10 15:27] VITALS: PULSE 70; TEMP 98
[2017-12-10 16:29] VITALS: BP 116/62
== END 2017-12-10 16:30 | disposition home or self-care (01) ==
LOC: JONCCHEMO 07:26 → J7W 14:10 → JONCCHEMO 16:30
PROVIDERS: ATTEND Internal Medicine Hematology & Oncology
PROC: 3E0437Z Introduction of Electrolytic and Water Balance Substance into Central Vein, Percutaneous Approach (ICD-10-PCS; principal; 2017-12-10)
DX: C17.0 Malignant neoplasm of duodenum (principal); Z76.89 Persons encountering health services in other specified circumstances
CPT/HCPCS: 96360; 96361; J7030

== ENCOUNTER 2017-12-22 07:35 | Day surgery (SDC) | payer OTHER ==
[2017-12-22] MEDS ORDERED: ATROPINE SULFATE 1 MG/10 ML DISP.SYRIN IVPUSH ONE (10:00)
[2017-12-22] MEDS ORDERED: PALONOSETRON HCL 0.25 MG/5 ML VIAL IVPUSH ONE (10:00)
[2017-12-22] MEDS ORDERED: DEXAMETHASONE INJECTION 10 MG in SODIUM CHLORIDE 50 ML IVPB ONE (10:00)
[2017-12-22] MEDS ORDERED: WATER IVPB ONE (10:30)
[2017-12-22] MEDS ORDERED: LEUCOVORIN IVPB ONE (10:30)
[2017-12-22] MEDS ORDERED: DEXTROSE 5% IVPB ONE (10:30)
[2017-12-22] MEDS ORDERED: IRINOTECAN HCL 210 MG in DEXTROSE 5%-WATER - 500 ML IVPB ONE (10:30)
[2017-12-22 10:47] LABS: BASO % 0.6 % (0-2.0); EOS % 2.9 % (0-4.5); HEMATOCRIT 30.9 % (32.4-45.2); HEMOGLOBIN 10.1 GM/dL (10.7-15.3); LYMPH % 29.6 % (8-40); MCH 24.9 pg (25.7-33.7); MCHC 32.8 g/dl (32.0-36.0); MEAN PLT VOLUME 6.7 fl (7.5-11.1); MONO % 9.9 % (3.8-10.2); PLATELET COUNT 316 K/MM3 (134-434); RBC 4.07 M/mm3 (3.60-5.2); RDW 20.2 % (11.6-15.6); WHITE BLOOD COUNT 6.5 K/mm3 (4.0-10.0)
[2017-12-22 11:18] LABS: ALBUMIN 3.4 g/dl (3.4-5.0); ANION GAP 8 (8-16); BLOOD UREA NITROGEN 15 mg/dL (7-18); CALCIUM 8.4 mg/dL (8.5-10.1); CHLORIDE 106 mmol/L (98-107); CO2 23 mmol/L (21-32); GLUCOSE,RANDOM 127 mg/dL (74-106); POTASSIUM 4.3 mmol/L (3.5-5.1); SGOT/AST 16 U/L (15-37); SODIUM 137 mmol/L (136-145)
[2017-12-22 11:21] LABS: ALK PHOS 81 U/L (45-117); BILIRUBIN,DIRECT < 0.2 mg/dL (0.0-0.2); BILIRUBIN,TOTAL 0.3 mg/dL (0.2-1.0); CREATININE 0.9 mg/dL (0.55-1.02); SGPT/ALT 23 U/L (12-78); TOT PROT 6.7 g/dl (6.4-8.2)
[2017-12-22] MEDS ORDERED: FLUOROURACIL CP ONE (12:00)
[2017-12-22] MEDS ORDERED: SODIUM CHLORIDE CP ONE (12:00)
[2017-12-22 17:30] VITALS: TEMP 98.2
[2017-12-22 17:31] VITALS: BP 118/71; PULSE 80
== END 2017-12-22 15:40 | disposition home or self-care (01) ==
LOC: JONCCHEMO 07:35 → J7W 12:24 → JONCCHEMO 15:40
PROVIDERS: ATTEND Internal Medicine Hematology & Oncology
DX: Z51.11 Encounter for antineoplastic chemotherapy (principal); C17.0 Malignant neoplasm of duodenum
CPT/HCPCS: 36415; 80048; 80076; 83735; 85025; 96366; 96367; 96375; 96413; 96415; 96417; G0498; J1100; J2469; J9206

== ENCOUNTER 2017-12-24 09:41 | Day surgery (SDC) | payer OTHER ==
[2017-12-24 17:59] VITALS: BP 117/66; PULSE 80; TEMP 98.1
[2017-12-24] MEDS ORDERED: PORTA CATH FLUSH 10 ML IVPUSH ONE (18:01)
== END 2017-12-24 14:10 | disposition home or self-care (01) ==
LOC: JONCCHEMO 09:41 → J7W 14:08 → JONCCHEMO 14:10
PROVIDERS: ATTEND Internal Medicine Hematology & Oncology
PROC: 0JPVXVZ Removal of Infusion Pump from Upper Extremity Subcutaneous Tissue and Fascia, External Approach (ICD-10-PCS; principal; 2017-12-24)
DX: Z53.8 Procedure and treatment not carried out for other reasons (principal)

== ENCOUNTER 2018-01-19 07:35 | Day surgery (SDC) | payer OTHER ==
[2018-01-19] MEDS ORDERED: PALONOSETRON HCL 0.25 MG/5 ML VIAL IVPUSH ONE (08:00)
[2018-01-19] MEDS ORDERED: ATROPINE SULFATE 1 MG/10 ML DISP.SYRIN IM ONE (08:00)
[2018-01-19] MEDS ORDERED: DEXAMETHASONE INJECTION 10 MG in SODIUM CHLORIDE 50 ML IVPB ONE (08:00)
[2018-01-19] MEDS ORDERED: LEUCOVORIN IVPB ONE (08:30)
[2018-01-19] MEDS ORDERED: IRINOTECAN HCL 200 MG in DEXTROSE 5%-WATER - 500 ML IVPB ONE (08:30)
[2018-01-19] MEDS ORDERED: DEXTROSE 5% IVPB ONE (08:30)
[2018-01-19] MEDS ORDERED: WATER IVPB ONE (08:30)
[2018-01-19] MEDS ORDERED: FLUOROURACIL CP ONE (10:00)
[2018-01-19] MEDS ORDERED: SODIUM CHLORIDE CP ONE (10:00)
[2018-01-19 10:53] VITALS: TEMP 98.3
[2018-01-19 11:06] LABS: BASO % 0.4 % (0-2.0); EOS % 2.8 % (0-4.5); HEMATOCRIT 31.9 % (32.4-45.2); HEMOGLOBIN 10.2 GM/dL (10.7-15.3); LYMPH % 29.6 % (8-40); MCH 24.6 pg (25.7-33.7); MCHC 31.9 g/dl (32.0-36.0); MEAN CELL VOLUME 77.3 fl (80-96); MEAN PLT VOLUME 6.2 fl (7.5-11.1); MONO % 8.9 % (3.8-10.2); NEUT % 58.3 % (42.8-82.8); PLATELET COUNT 333 K/MM3 (134-434); RBC 4.13 M/mm3 (3.60-5.2); RDW 20.2 % (11.6-15.6); WHITE BLOOD COUNT 6.3 K/mm3 (4.0-10.0)
[2018-01-19 11:34] LABS: ALBUMIN 3.3 g/dl (3.4-5.0); ALK PHOS 80 U/L (45-117); ANION GAP 7 (8-16); BILIRUBIN,DIRECT < 0.2 mg/dL (0.0-0.2); BILIRUBIN,TOTAL 0.3 mg/dL (0.2-1.0); BLOOD UREA NITROGEN 19 mg/dL (7-18); CALCIUM 8.2 mg/dL (8.5-10.1); CHLORIDE 106 mmol/L (98-107); CO2 27 mmol/L (21-32); GLUCOSE,RANDOM 147 mg/dL (74-106); MAGNESIUM 2.2 mg/dL (1.8-2.4); POTASSIUM 4.1 mmol/L (3.5-5.1); SGOT/AST 16 U/L (15-37); SGOT/AST 20 U/L (15-37); SGPT/ALT 24 U/L (12-78); SGPT/ALT 25 U/L (12-78); SODIUM 140 mmol/L (136-145); TOT PROT 6.5 g/dl (6.4-8.2)
[2018-01-19] MEDS ORDERED: ATROPINE SULFATE 1 MG/10 ML DISP.SYRIN IVPUSH ONE (12:30)
[2018-01-19 16:29] VITALS: BP 140/74; PULSE 86
== END 2018-01-19 14:30 | disposition home or self-care (01) ==
LOC: JONCCHEMO 07:35 → J7W 11:58 → JONCCHEMO 14:30
PROVIDERS: ATTEND Internal Medicine Hematology & Oncology
PROC: 3E04305 Introduction of Other Antineoplastic into Central Vein, Percutaneous Approach (ICD-10-PCS; principal; 2018-01-19)
PROC: 3E04305 Introduction of Other Antineoplastic into Central Vein, Percutaneous Approach (ICD-10-PCS; 2018-01-19)
PROC: 3E043GC Introduction of Other Therapeutic Substance into Central Vein, Percutaneous Approach (ICD-10-PCS; 2018-01-19)
PROC: 3E0437Z Introduction of Electrolytic and Water Balance Substance into Central Vein, Percutaneous Approach (ICD-10-PCS; 2018-01-19)
DX: Z51.11 Encounter for antineoplastic chemotherapy (principal); C17.0 Malignant neoplasm of duodenum
CPT/HCPCS: 36415; 80053; 80076; 83735; 85025; 96375; 96413; 96415; 96417; G0498; J1100; J2469; J9206

== ENCOUNTER 2018-01-21 07:54 | Day surgery (SDC) | payer OTHER ==
[2018-01-21 16:45] VITALS: BP 105/62; PULSE 76; TEMP 98.1
[2018-01-21] MEDS ORDERED: PORTA CATH FLUSH 10 ML IVPUSH ONE (17:27)
== END 2018-01-21 13:15 | disposition home or self-care (01) ==
LOC: JONCCHEMO 07:54
PROVIDERS: ATTEND Internal Medicine Hematology & Oncology
PROC: 0JPVXVZ Removal of Infusion Pump from Upper Extremity Subcutaneous Tissue and Fascia, External Approach (ICD-10-PCS; principal; 2018-01-21)
DX: Z53.8 Procedure and treatment not carried out for other reasons (principal)

== ENCOUNTER 2018-02-02 07:32 | Day surgery (SDC) | payer OTHER ==
[2018-02-02] MEDS ORDERED: DEXAMETHASONE INJECTION 10 MG in SODIUM CHLORIDE 50 ML IVPB ONE (08:00)
[2018-02-02] MEDS ORDERED: ATROPINE SULFATE 1 MG/10 ML DISP.SYRIN NR ONE (08:00)
[2018-02-02] MEDS ORDERED: PALONOSETRON HCL 0.25 MG/5 ML VIAL IVPUSH ONE (08:00)
[2018-02-02] MEDS ORDERED: LEUCOVORIN IVPB ONE (08:30)
[2018-02-02] MEDS ORDERED: DEXTROSE 5% IVPB ONE (08:30)
[2018-02-02] MEDS ORDERED: IRINOTECAN HCL 240 MG in DEXTROSE 5%-WATER - 500 ML IVPB ONE (08:30)
[2018-02-02] MEDS ORDERED: WATER IVPB ONE (08:30)
[2018-02-02] MEDS ORDERED: FLUOROURACIL CP ONE (10:00)
[2018-02-02] MEDS ORDERED: SODIUM CHLORIDE CP ONE (10:00)
[2018-02-02 10:51] LABS: BASO % 0.5 % (0-2.0); EOS % 3.4 % (0-4.5); HEMATOCRIT 31.4 % (32.4-45.2); HEMOGLOBIN 10.2 GM/dL (10.7-15.3); MCHC 32.4 g/dl (32.0-36.0); MEAN CELL VOLUME 77.1 fl (80-96); MEAN PLT VOLUME 6.6 fl (7.5-11.1); MONO % 9.1 % (3.8-10.2); PLATELET COUNT 345 K/MM3 (134-434); RBC 4.08 M/mm3 (3.60-5.2); RDW 20.2 % (11.6-15.6); WHITE BLOOD COUNT 6.3 K/mm3 (4.0-10.0)
[2018-02-02 11:16] LABS: ALBUMIN 3.3 g/dl (3.4-5.0); ALBUMIN 3.4 g/dl (3.4-5.0); ALK PHOS 80 U/L (45-117); ANION GAP 9 (8-16); BILIRUBIN,DIRECT < 0.2 mg/dL (0.0-0.2); BILIRUBIN,TOTAL 0.2 mg/dL (0.2-1.0); BLOOD UREA NITROGEN 14 mg/dL (7-18); CALCIUM 8.7 mg/dL (8.5-10.1); CHLORIDE 104 mmol/L (98-107); CO2 24 mmol/L (21-32); GLUCOSE,RANDOM 116 mg/dL (74-106); SGOT/AST 14 U/L (15-37); SGPT/ALT 23 U/L (12-78); SODIUM 137 mmol/L (136-145); TOT PROT 6.4 g/dl (6.4-8.2)
[2018-02-02 11:20] LABS: ALK PHOS 82 U/L (45-117); BILIRUBIN,TOTAL 0.2 mg/dL (0.2-1.0); CREATININE 0.9 mg/dL (0.55-1.02); SGOT/AST 16 U/L (15-37); SGPT/ALT 23 U/L (12-78); TOT PROT 6.5 g/dl (6.4-8.2)
[2018-02-02 16:55] VITALS: TEMP 98
[2018-02-02 16:57] VITALS: BP 128/67; PULSE 80
== END 2018-02-02 14:15 | disposition home or self-care (01) ==
LOC: JONCCHEMO 07:32 → J7W 11:42 → JONCCHEMO 14:15
PROVIDERS: ATTEND Internal Medicine Hematology & Oncology
DX: Z51.11 Encounter for antineoplastic chemotherapy (principal); C17.0 Malignant neoplasm of duodenum
CPT/HCPCS: 36415; 80053; 80076; 83735; 85025; 96366; 96367; 96368; 96375; 96413; 96415; 96417; G0498; J1100; J2469; J9206

== ENCOUNTER 2018-03-02 07:41 | Day surgery (SDC) | payer OTHER ==
[2018-03-02] MEDS ORDERED: ATROPINE SO4 0.4 MG/1 ML VIAL IVPUSH ONE (10:00)
[2018-03-02] MEDS ORDERED: PALONOSETRON HCL 0.25 MG/5 ML VIAL IVPUSH ONE (10:00)
[2018-03-02] MEDS ORDERED: DEXAMETHASONE INJECTION 10 MG in SODIUM CHLORIDE 50 ML IVPB ONE (10:00)
[2018-03-02] MEDS ORDERED: LEUCOVORIN IVPB ONE (10:30)
[2018-03-02] MEDS ORDERED: IRINOTECAN HCL 240 MG in DEXTROSE 5%-WATER - 500 ML IVPB ONE (10:30)
[2018-03-02] MEDS ORDERED: WATER IVPB ONE (10:30)
[2018-03-02] MEDS ORDERED: DEXTROSE 5% IVPB ONE (10:30)
[2018-03-02 10:46] LABS: BASO % 0.5 % (0-2.0); HEMATOCRIT 30.1 % (32.4-45.2); HEMOGLOBIN 10.2 GM/dL (10.7-15.3); LYMPH % 26.5 % (8-40); MCH 25.8 pg (25.7-33.7); MCHC 33.7 g/dl (32.0-36.0); MEAN CELL VOLUME 76.6 fl (80-96); MEAN PLT VOLUME 6.3 fl (7.5-11.1); PLATELET COUNT 355 K/MM3 (134-434); RBC 3.93 M/mm3 (3.60-5.2); RDW 19.6 % (11.6-15.6); WHITE BLOOD COUNT 7.1 K/mm3 (4.0-10.0)
[2018-03-02 11:17] LABS: ALBUMIN 3.3 g/dl (3.4-5.0); ALK PHOS 80 U/L (45-117); ANION GAP 8 (8-16); BILIRUBIN,DIRECT < 0.2 mg/dL (0.0-0.2); BILIRUBIN,TOTAL 0.2 mg/dL (0.2-1.0); BLOOD UREA NITROGEN 17 mg/dL (7-18); CALCIUM 8.3 mg/dL (8.5-10.1); CHLORIDE 105 mmol/L (98-107); CO2 26 mmol/L (21-32); CREATININE 0.9 mg/dL (0.55-1.02); GLUCOSE,RANDOM 127 mg/dL (74-106); POTASSIUM 4.3 mmol/L (3.5-5.1); SGOT/AST 16 U/L (15-37); SGPT/ALT 26 U/L (12-78); SODIUM 139 mmol/L (136-145); TOT PROT 6.5 g/dl (6.4-8.2)
[2018-03-02] MEDS ORDERED: FLUOROURACIL CP ONE (12:00)
[2018-03-02] MEDS ORDERED: SODIUM CHLORIDE CP ONE (12:00)
[2018-03-02 18:54] VITALS: TEMP 98
[2018-03-02 19:05] VITALS: BP 125/72; PULSE 75
== END 2018-03-02 15:55 | disposition home or self-care (01) ==
LOC: JONCCHEMO 07:41 → J7W 12:30 → JONCCHEMO 15:55
PROVIDERS: ATTEND Internal Medicine Hematology & Oncology
PROC: 3E04305 Introduction of Other Antineoplastic into Central Vein, Percutaneous Approach (ICD-10-PCS; principal; 2018-03-02)
PROC: 3E04305 Introduction of Other Antineoplastic into Central Vein, Percutaneous Approach (ICD-10-PCS; 2018-03-02)
PROC: 3E043GC Introduction of Other Therapeutic Substance into Central Vein, Percutaneous Approach (ICD-10-PCS; 2018-03-02)
DX: Z51.11 Encounter for antineoplastic chemotherapy (principal); C17.0 Malignant neoplasm of duodenum; I10 Essential (primary) hypertension; E78.00 Pure hypercholesterolemia, unspecified
CPT/HCPCS: 36415; 80048; 80076; 83735; 85025; 96366; 96367; 96375; 96413; 96415; 96417; G0498; J1100; J2469; J9206

== ENCOUNTER 2018-03-17 07:42 | Day surgery (SDC) | payer OTHER ==
[2018-03-17] MEDS ORDERED: ATROPINE SULFATE 1 MG/10 ML DISP.SYRIN IVPUSH ONE (08:00)
[2018-03-17] MEDS ORDERED: DEXAMETHASONE INJECTION 10 MG in SODIUM CHLORIDE 50 ML IVPB ONE (08:00)
[2018-03-17] MEDS ORDERED: PALONOSETRON HCL 0.25 MG/5 ML VIAL IVPUSH ONE (08:00)
[2018-03-17] MEDS ORDERED: DEXTROSE 5% IVPB ONE (08:30)
[2018-03-17] MEDS ORDERED: IRINOTECAN HCL 240 MG in DEXTROSE 5%-WATER - 500 ML IVPB ONE (08:30)
[2018-03-17] MEDS ORDERED: LEUCOVORIN IVPB ONE (08:30)
[2018-03-17] MEDS ORDERED: WATER IVPB ONE (08:30)
[2018-03-17] MEDS ORDERED: FLUOROURACIL CP ONE (10:00)
[2018-03-17] MEDS ORDERED: SODIUM CHLORIDE CP ONE (10:00)
[2018-03-17 10:42] LABS: BASO % 0.7 % (0-2.0); EOS % 4.5 % (0-4.5); HEMATOCRIT 31.3 % (32.4-45.2); HEMOGLOBIN 10.3 GM/dL (10.7-15.3); MCH 25.5 pg (25.7-33.7); MCHC 32.8 g/dl (32.0-36.0); MEAN CELL VOLUME 77.6 fl (80-96); MEAN PLT VOLUME 6.5 fl (7.5-11.1); MONO % 8.8 % (3.8-10.2); PLATELET COUNT 357 K/MM3 (134-434); RBC 4.03 M/mm3 (3.60-5.2); RDW 19.3 % (11.6-15.6); WHITE BLOOD COUNT 6.2 K/mm3 (4.0-10.0)
[2018-03-17 11:02] LABS: ALBUMIN 3.2 g/dl (3.4-5.0); ALBUMIN 3.3 g/dl (3.4-5.0); ALK PHOS 74 U/L (45-117); ANION GAP 9 MMOL/L (8-16); BILIRUBIN,DIRECT < 0.2 mg/dL (0.0-0.2); BILIRUBIN,TOTAL 0.3 mg/dL (0.2-1.0); BLOOD UREA NITROGEN 20 mg/dL (7-18); CALCIUM 8.4 mg/dL (8.5-10.1); CHLORIDE 106 mmol/L (98-107); CO2 24 mmol/L (21-32); CREATININE 0.9 mg/dL (0.55-1.02); GLUCOSE,RANDOM 140 mg/dL (74-106); POTASSIUM 4.4 mmol/L (3.5-5.1); SGOT/AST 19 U/L (15-37); SGOT/AST 20 U/L (15-37); SGPT/ALT 25 U/L (12-78); SGPT/ALT 26 U/L (12-78); SODIUM 139 mmol/L (136-145); TOT PROT 6.3 g/dl (6.4-8.2); TOT PROT 6.4 g/dl (6.4-8.2)
[2018-03-17 11:05] LABS: ALK PHOS 72 U/L (45-117)
[2018-03-17 17:28] VITALS: TEMP 97.9
[2018-03-17 17:30] VITALS: BP 139/73; PULSE 82
== END 2018-03-17 14:40 | disposition home or self-care (01) ==
LOC: JONCCHEMO 07:42 → J7W 12:19 → JONCCHEMO 14:40
PROVIDERS: ATTEND Internal Medicine Hematology & Oncology
PROC: 3E04305 Introduction of Other Antineoplastic into Central Vein, Percutaneous Approach (ICD-10-PCS; principal; 2018-03-17)
PROC: 3E04305 Introduction of Other Antineoplastic into Central Vein, Percutaneous Approach (ICD-10-PCS; 2018-03-17)
PROC: 3E043GC Introduction of Other Therapeutic Substance into Central Vein, Percutaneous Approach (ICD-10-PCS; 2018-03-17)
DX: Z51.11 Encounter for antineoplastic chemotherapy (principal); C17.0 Malignant neoplasm of duodenum; I10 Essential (primary) hypertension; E78.00 Pure hypercholesterolemia, unspecified
CPT/HCPCS: 36415; 80053; 80076; 83735; 85025; 96367; 96375; 96413; 96415; G0498; J1100; J2469; J9206

== ENCOUNTER 2018-03-25 06:14 | Day surgery (SDC) | payer OTHER ==
[2018-03-24 16:32] VITALS: BMI 29.9
[~2018-03-25 06:14] MED LIST changes: -ATROPINE SULFATE 1 MG/10 ML DISP.SYRIN SQ ONE; -DEXAMETHASONE SOD PHOSPHATE 10 MG/1 ML VIAL IVPUSH ONE; -PALONOSETRON HCL 0.25 MG/5 ML VIAL IVPUSH ONE; +TOBRAMYCIN/DEXAMETHASONE OPHTH. OINTMENT 1 TUBE TP ONE
[2018-03-25 06:40] VITALS: TEMP 97.9
[2018-03-25] MEDS ORDERED: CIPROFLOXACIN HCL 0.3% OPHTH 2.5ML BOTTLE ONE (06:50)
[2018-03-25] MEDS ORDERED: PHENYLEPHRINE 2.5% OPHTH SOLN 15 ML BOTTLE ONE (06:51)
[2018-03-25] MEDS ORDERED: TROPICAMIDE 1% OPHTH SOLN 15 ML BOTTLE ONE (06:51)
[2018-03-25] MEDS ORDERED: KETOROLAC TROMETHAMINE 0.5% EYE DROP 1 DROP DROPS ONE (06:51)
[2018-03-25] MEDS: CIPROFLOXACIN HCL 0.3% OPHTH 2.5ML BOTTLE OP SCH ×3 (07:01→07:20)
[2018-03-25] MEDS: TROPICAMIDE 1% OPHTH SOLN 15 ML BOTTLE OP SCH ×3 (07:02→07:20)
[2018-03-25] MEDS: KETOROLAC TROMETHAMINE 0.5% EYE DROP 1 DROP DROPS OP SCH ×3 (07:02→07:20)
[2018-03-25] MEDS: PHENYLEPHRINE 2.5% OPHTH SOLN 15 ML BOTTLE OP SCH ×3 (07:02→07:20)
--- NOTE | 2018-03-25 07:19 | HP ---
History & Physical Update - History History: No Change - Physical Physical: No Change - Assessment Assessment: No Change - Plan Plan: No Change (Reviewed Dr. Cleaning's H and P from 03/16/18 no changes)
--- NOTE | 2018-03-25 07:19 | HP ---
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, hard of hearing.) Current Medications: Ambulatory Orders Amlodipine Besylate [Norvasc -] 10 mg PO DAILY 03/31/17 Atorvastatin Ca [Lipitor] 10 mg PO HS 03/31/17 Esomeprazole Mag Trihydrate [NexIUM for SUSP] 40 mg PO DAILY 03/31/17 Levothyroxine [Synthroid -] 25 mcg PO DAILY 03/31/17 Pyridoxine HCl (B-6) [Vitamin B6] 100 mg PO DAILY 03/24/18 Allergies/Adverse Reactions: Allergies Allergy/AdvReac Type Severity Reaction Status Date / Time Penicillins AdvReac Unknown "happened Verified 03/25/18 06:46 as a child-?reaction" Ocular Examination - Best Corrected Visual Acuity Distance: Right eye: 20/50 Distance: Left eye: 20/40 - External/Slit Lamp Examination Abnormalities: decreased TBUT, arcus senilis - Intraocular Pressure Intraocular Pressure - Right eye: 13 Intraocular Pressure-Left eye: 13 - Lens Lens: 2-3+ NS 1+ cortical change - Vitreous/Retina Vitreous/Retina: c:d 0.15 m/v/p wnl - Special Examination M - Right eye: +1.50-0.50 x 080 M - Left eye: -0.50 - 0.50 x 085 K - Right eye: 44.25/44.50 x 085 K - Left eye: 44.50/45 x 005 AL - Right eye: 22.55 AL - Left eye: 22.58 IOL bag: +23.0 D Auooto IOL sulcus: +22.0 D [id number] IOL AC: +19.0 D [id number] - Impression Impression: Cataract Right Eye - Plan Plan: Phacoemulsification and cataract extraction - IOL Right eye Post-hospital care will be provided in office on: 03/26/18
[2018-03-25] MEDS ORDERED: CHONDROITIN SU A/HYALUR SOD 1 KIT ONE (07:20)
[2018-03-25] MEDS ORDERED: POVIDONE-IODINE 5% OPHTHALMIC PREP 30 ML SOLUTION ONE (07:25)
[2018-03-25] MEDS ORDERED: EPINEPHrine/PF 1 MG/1 ML (1:1,000) AMPULE ONE (07:25)
[2018-03-25] MEDS ORDERED: TOBRAMYCIN/DEXAMETHASONE OPHTH. OINTMENT 1 TUBE ONE (07:25)
[2018-03-25] MEDS ORDERED: LIDOCAINE HCL/PF 1% SDV 5ML VIAL ONE (07:25)
[2018-03-25] MEDS ORDERED: LIDOCAINE HCL 2% JELLY (5 ML/TUBE) ONE (07:25)
[2018-03-25] MEDS ORDERED: ACETAMINOPHEN 325 MG TABLET (FP) PO PRN (07:30)
[2018-03-25] MEDS ORDERED: LIDOCAINE HCL 2% JELLY (5 ML/TUBE) TP ONE (07:46)
[2018-03-25] MEDS ORDERED: MIDAZOLAM HCL 2 MG/2 ML SINGLE DOSE VIAL ONE (07:47)
[2018-03-25] MEDS ORDERED: POVIDONE-IODINE 5% OPHTHALMIC PREP 30 ML SOLUTION OD ONE (07:50)
[2018-03-25] MEDS ORDERED: CHONDROITIN SU A/HYALUR SOD 1 KIT IO ONE (07:58)
[2018-03-25] MEDS ORDERED: BSS (NA/CA/MG/K) BALANCED SALT SOLUTION OPHTH SOLN 15 ML BOTTLE OD ONE (07:58)
[2018-03-25] MEDS ORDERED: LIDOCAINE HCL 1% PRESERVATIVE FREE - 30ML VIAL IO ONE (07:58)
[2018-03-25] MEDS ORDERED: EPINEPHrine/PF 1 MG/1 ML (1:1,000) AMPULE SQ ONE (08:04)
[2018-03-25] MEDS ORDERED: TOBRAMYCIN/DEXAMETHASONE OPHTH. OINTMENT 1 TUBE TP ONE (08:23)
--- NOTE | 2018-03-25 08:30 | OP ---
Ophthalmology Operative Note Pre-Operative Diagnosis: Cataract Affected Eye: Right Operation: Phacoemulsification and cataract extraction with PCIOL Findings: cataract right eye Post-Operative Diagnosis: Same as Pre-op Afternoon Nanny: None Anesthesiologist: Fadia Olivia Anesthesia: Topical Specimens Removed: none Estimated blood loss: < 1 cc Drains & Tubes with Location: none Operative Report Dictated: Yes
[2018-03-25 08:42] VITALS: PULSE 76
--- NOTE | 2018-03-25 10:31 | OP ---
DATE OF OPERATION: DATE OF DICTATION: 03/25/2018 PREOPERATIVE DIAGNOSIS: Nuclear sclerotic cataract, right eye. POSTOPERATIVE DIAGNOSIS: Nuclear sclerotic cataract, right eye. PROCEDURE: Phacoemulsification and cataract extraction with insertion of posterior chamber intraocular lens, right eye. SURGEON: Mari Azevedo M.D. PLANT OPERATIONS COORDINATOR: None. ANESTHESIA: Topical. ANESTHESIOLOGIST: Fadia Olivia MD OPERATIVE PROCEDURE: The patient received viscous lidocaine gel 2% and was brought to the operating room and gently sedated and then prepped and draped in the usual sterile fashion such as to expose only the right eye. Ophthalmic Betadine was instilled into the inferior fornix and the lashes were taped out of the surgical field. An eyelid speculum was placed into the right eye. A paracentesis was made in superior temporal clear cornea at the limbus; 0.5 mL of non-preserved lidocaine 1% was injected into the anterior chamber. Viscoelastic material was instilled into the anterior chamber via the paracentesis. A 2.4 mm keratome was then used to create the main incision in temporal clear cornea at the limbus. A continuous curvilinear capsulorrhexis was performed using a cystotome and Utrata forceps. Hydrodissection of the lens cortex was performed using BSS on a cannula until the nucleus was noted to be freely rotating. The phacoemulsification tip was then inserted via the main wound and used to sculpt 2 perpendicular grooves into the lens nucleus. The nucleus was cracked into 4 quadrants. Each quadrant was lifted out of the capsule into the iris plane and individually phacoemulsified. The remaining cortical material was then aspirated using the irrigation and aspiration port. The capsular bag was inflated using Provisc and a preloaded AcrySof lens model [id number], power +22.0 diopters, was injected into the capsular bag. It was centered using a Sinskey hook. The residual Viscoelastic material was removed from the anterior chamber using irrigation and aspiration. The wound edges were hydrated using BSS. The wound was tested for leakage. It was found to be water tight. Tobradex ointment was placed in the eye and the speculum was removed from the eye and the eyelid was closed. A sterile dressing and shield were placed over the eye and the patient was transferred to the recovery room in stable condition and told to follow up in 1 day. MARI AZEVEDO M.D. [id number]
[2018-03-25 11:06] VITALS: BP 102/54
== END 2018-03-25 09:50 | disposition home or self-care (01) ==
LOC: JASU-SURG 06:14
PROVIDERS: ATTEND Ophthalmology
PROC: 08RJ3JZ Replacement of Right Lens with Synthetic Substitute, Percutaneous Approach (ICD-10-PCS; principal; 2018-03-25 07:30)
DX: H25.11 Age-related nuclear cataract, right eye (principal)

== ENCOUNTER 2018-03-31 07:40 | Day surgery (SDC) | payer OTHER ==
[2018-03-31] MEDS ORDERED: PALONOSETRON HCL 0.25 MG/5 ML VIAL IVPUSH ONE (10:00)
[2018-03-31] MEDS ORDERED: ATROPINE SO4 0.4 MG/1 ML VIAL IVPUSH ONE (10:00)
[2018-03-31] MEDS ORDERED: DEXAMETHASONE INJECTION 10 MG in SODIUM CHLORIDE 50 ML IVPB ONE (10:00)
[2018-03-31] MEDS ORDERED: DEXTROSE 5% IVPB ONE (10:30)
[2018-03-31] MEDS ORDERED: WATER IVPB ONE (10:30)
[2018-03-31] MEDS ORDERED: LEUCOVORIN IVPB ONE (10:30)
[2018-03-31 10:52] LABS: BASO % 0.4 % (0-2.0); EOS % 2.6 % (0-4.5); HEMATOCRIT 30.9 % (32.4-45.2); LYMPH % 25.4 % (8-40); MCH 25.1 pg (25.7-33.7); MCHC 32.5 g/dl (32.0-36.0); MEAN CELL VOLUME 77.4 fl (80-96); MEAN PLT VOLUME 6.5 fl (7.5-11.1); MONO % 8.6 % (3.8-10.2); PLATELET COUNT 328 K/MM3 (134-434); RBC 3.99 M/mm3 (3.60-5.2); RDW 18.6 % (11.6-15.6); WHITE BLOOD COUNT 6.9 K/mm3 (4.0-10.0)
[2018-03-31] MEDS ORDERED: IRINOTECAN HCL 240 MG in DEXTROSE 5%-WATER - 500 ML IVPB ONE (11:00)
[2018-03-31 12:30] LABS: ALBUMIN 3.2 g/dl (3.4-5.0); ALK PHOS 78 U/L (45-117); BILIRUBIN,DIRECT < 0.2 mg/dL (0.0-0.2); BILIRUBIN,TOTAL 0.3 mg/dL (0.2-1); SGPT/ALT 24 U/L (13-61); TOT PROT 6.6 g/dl (6.4-8.2)
[2018-03-31] MEDS ORDERED: FLUOROURACIL CP ONE (12:30)
[2018-03-31] MEDS ORDERED: SODIUM CHLORIDE CP ONE (12:30)
[2018-03-31 12:32] LABS: MAGNESIUM 1.9 mg/dL (1.8-2.4); SGOT/AST 31 U/L (15-37)
[2018-03-31 13:00] LABS: CHLORIDE 105 mmol/L (98-107); SODIUM 140 mmol/L (136-145)
[2018-03-31 13:23] LABS: ALBUMIN 1.4 g/dl (3.4-5.0); ALK PHOS 78 U/L (45-117); ANION GAP 13 MMOL/L (8-16); BILIRUBIN,TOTAL 0.3 mg/dL (0.2-1); BLOOD UREA NITROGEN 19 mg/dL (7-18); CALCIUM 8.6 mg/dL (8.5-10.1); CO2 22 mmol/L (21-32); SGOT/AST 15 U/L (15-37); SGPT/ALT 23 U/L (13-61); TOT PROT 6.6 g/dl (6.4-8.2)
[2018-03-31 14:03] LABS: GLUCOSE,RANDOM 137 mg/dL (74-106)
[2018-03-31 17:57] VITALS: TEMP 97.8
[2018-03-31 18:05] VITALS: BP 148/81; PULSE 89
== END 2018-03-31 16:10 | disposition home or self-care (01) ==
LOC: JONCCHEMO 07:40 → J7W 12:41 → JONCCHEMO 16:10
PROVIDERS: ATTEND Internal Medicine Hematology & Oncology
DX: Z51.11 Encounter for antineoplastic chemotherapy (principal); C17.0 Malignant neoplasm of duodenum
CPT/HCPCS: 36415; 80053; 80076; 82378; 83735; 85025; 96366; 96367; 96375; 96413; 96415; 96417; G0498; J1100; J2469; J9206

== ENCOUNTER 2018-04-02 07:34 | Day surgery (SDC) | payer OTHER ==
[2018-04-02 19:02] VITALS: BP 101/60; PULSE 68; TEMP 97.8
[2018-04-02] MEDS ORDERED: PORTA CATH FLUSH 10 ML IVPUSH ONE (19:07)
== END 2018-04-02 14:35 | disposition home or self-care (01) ==
LOC: JONCCHEMO 07:34 → J7W 13:58 → JONCCHEMO 14:35
PROVIDERS: ATTEND Internal Medicine Hematology & Oncology
PROC: 0JPVXVZ Removal of Infusion Pump from Upper Extremity Subcutaneous Tissue and Fascia, External Approach (ICD-10-PCS; principal; 2018-04-02)
DX: Z53.8 Procedure and treatment not carried out for other reasons (principal)

== ENCOUNTER 2018-04-14 07:35 | Day surgery (SDC) | payer OTHER ==
[2018-04-14] MEDS ORDERED: PALONOSETRON HCL 0.25 MG/5 ML VIAL IVPUSH ONE (08:00)
[2018-04-14] MEDS ORDERED: DEXAMETHASONE INJECTION 10 MG in SODIUM CHLORIDE 50 ML IVPB ONE (08:00)
[2018-04-14] MEDS ORDERED: ATROPINE SULFATE 1 MG/10 ML DISP.SYRIN IVPUSH ONE (08:00)
[2018-04-14] MEDS ORDERED: LEUCOVORIN IVPB ONE (08:30)
[2018-04-14] MEDS ORDERED: WATER IVPB ONE (08:30)
[2018-04-14] MEDS ORDERED: DEXTROSE 5% IVPB ONE (08:30)
[2018-04-14] MEDS ORDERED: IRINOTECAN HCL 240 MG in DEXTROSE 5%-WATER - 500 ML IVPB ONE (08:30)
[2018-04-14] MEDS ORDERED: FLUOROURACIL IV ONE (10:00)
[2018-04-14] MEDS ORDERED: SODIUM CHLORIDE IV ONE (10:00)
[2018-04-14 11:20] LABS: BASO % 0.5 % (0-2.0); EOS % 2.8 % (0-4.5); HEMATOCRIT 31.4 % (32.4-45.2); HEMOGLOBIN 10.1 GM/dL (10.7-15.3); LYMPH % 28.6 % (8-40); MCH 24.9 pg (25.7-33.7); MCHC 32.1 g/dl (32.0-36.0); MEAN CELL VOLUME 77.6 fl (80-96); MEAN PLT VOLUME 6.7 fl (7.5-11.1); MONO % 10.2 % (3.8-10.2); NEUT % 57.9 % (42.8-82.8); PLATELET COUNT 351 K/MM3 (134-434); RBC 4.05 M/mm3 (3.60-5.2); RDW 19.2 % (11.6-15.6); WHITE BLOOD COUNT 6.4 K/mm3 (4.0-10.0)
[2018-04-14 11:41] LABS: ALBUMIN 3.2 g/dl (3.4-5.0); ALK PHOS 76 U/L (45-117); ANION GAP 8 MMOL/L (8-16); BILIRUBIN,TOTAL 0.2 mg/dL (0.2-1); BLOOD UREA NITROGEN 20 mg/dL (7-18); CALCIUM 8.2 mg/dL (8.5-10.1); CHLORIDE 107 mmol/L (98-107); CO2 25 mmol/L (21-32); CREATININE 0.8 mg/dL (0.55-1.3); GLUCOSE,RANDOM 119 mg/dL (74-106); POTASSIUM 4.2 mmol/L (3.5-5.1); SGOT/AST 12 U/L (15-37); SGPT/ALT 21 U/L (13-61); SODIUM 140 mmol/L (136-145); TOT PROT 6.4 g/dl (6.4-8.2)
[2018-04-14 11:43] LABS: ALBUMIN 3.2 g/dl (3.4-5.0); ALK PHOS 77 U/L (45-117); BILIRUBIN,DIRECT < 0.2 mg/dL (0.0-0.2); BILIRUBIN,TOTAL 0.3 mg/dL (0.2-1); MAGNESIUM 2.2 mg/dL (1.8-2.4); SGOT/AST 13 U/L (15-37); SGPT/ALT 22 U/L (13-61); TOT PROT 6.4 g/dl (6.4-8.2)
[2018-04-14 13:50] VITALS: TEMP 97.5
[2018-04-14 15:10] VITALS: BP 155/82; PULSE 92
== END 2018-04-14 15:00 | disposition home or self-care (01) ==
LOC: JONCCHEMO 07:35 → J7W 12:47 → JONCCHEMO 15:00
PROVIDERS: ATTEND Internal Medicine Hematology & Oncology
DX: Z51.11 Encounter for antineoplastic chemotherapy (principal); C17.0 Malignant neoplasm of duodenum
CPT/HCPCS: 36415; 80053; 80076; 83735; 85025; 96367; 96375; 96413; 96415; 96417; G0498; J1100; J2469; J9206

== ENCOUNTER 2018-04-16 07:26 | Day surgery (SDC) | payer OTHER ==
[2018-04-16 14:17] VITALS: BP 122/72; TEMP 97.6
[2018-04-16 14:19] VITALS: PULSE 72
== END 2018-04-16 14:24 | disposition home or self-care (01) ==
LOC: JONCCHEMO 07:26
PROVIDERS: ATTEND Internal Medicine Hematology & Oncology

== ENCOUNTER 2018-04-16 14:00 | Emergency (ER) | payer OTHER ==
[2018-04-16 14:08] VITALS: BMI 28.9
[2018-04-16] MEDS ORDERED: SODIUM CHLORIDE 0.9% 500 ML INFUS.BAG IV ONE ×2 (14:54→17:06)
--- NOTE | 2018-04-16 14:55 | PDOC ---
History of Present Illness - General History Source: Patient Exam Limitations: No Limitations - History of Present Illness Initial Comments: Mrs. Schneider is a 72 yo F w a pmh of HTN and duodenal carcinoma who presents to the ER after a syncopal episode earlier today at home while she was receiving chemo from her portocath. She states that she was sitting on her couch and then all of a sudden felt lightheaded and passed out for a few minutes. No-one was there to witness the syncopal event. She denies hitting her head. She denies having experienced any chest pain, SOB, difficulty breathing, headache, dysuria, frequency, urgency, recent fevers, chills or infections. PCP: Dr. Negro Maynard hx: Denies cigarette, alcohol, or illicit drug usage. Allergies: Penicillin <Victor Hugo Fuentes - Last Filed: 04/17/18 07:19> <Diane Correa - Last Filed: 04/17/18 08:23> - General Chief Complaint: Syncope/Near Syncope Stated Complaint: SYNCOPE Time Seen by Provider: 04/16/18 14:11 Past History - Past Medical History Anemia: No Asthma: No Cancer: Yes (duodenal-receiving chemo, adenocarcimoma) Cardiac Disorders: No CVA: No COPD: No CHF: No Dementia: No Diabetes: No GI Disorders: No Disorders: No HTN: Yes Hypercholesterolemia: Yes Liver Disease: No Seizures: No Thyroid Disease: Yes - Suicide/Smoking/Psychosocial Hx Smoking History: Never smoked Hx Alcohol Use: No Drug/Substance Use Hx: No Substance Use Type: None <Victor Hugo Fuentes - Last Filed: 04/17/18 07:19> <Diane Correa - Last Filed: 04/17/18 08:23> - Past Medical History Allergies/Adverse Reactions: Allergies Allergy/AdvReac Type Severity Reaction Status Date / Time Penicillins AdvReac Unknown "happened Verified 03/25/18 06:46 as a child-?reaction" Home Medications: Ambulatory Orders Amlodipine Besylate [Norvasc -] 10 mg PO DAILY 03/31/17 Atorvastatin Ca [Lipitor] 10 mg PO HS 03/31/17 Esomeprazole Mag Trihydrate [NexIUM for SUSP] 40 mg PO DAILY 03/31/17 Levothyroxine [Synthroid -] 25 mcg PO DAILY 03/31/17 Pyridoxine HCl (B-6) [Vitamin B6] 100 mg PO DAILY 03/24/18 Nystatin Oral Suspension - [Nystatin Oral Susp 222854 Units/5 ML -] 5 ml PO QID #140 ml 04/16/18 Review of Systems - Review of Systems Able to Perform ROS?: Yes Constitutional: Yes: Weakness. No: Chills, Fever HEENTM: No: Blurred Vision, Recent change in vision, Double Vision Respiratory: No: Cough, Shortness of Breath, Productive cough Cardiac (ROS): Yes: See HPI, Lightheadedness, Syncope. No: Chest Pain, Edema, Irregular Heart Rate, Palpitations, Chest Tightness ABD/GI: Yes: Nausea, Poor Appetite, Poor Fluid Intake. No: Abdominal Distended , Constipated, Diarrhea, Vomiting : No: Burning, Dysuria, Frequency Musculoskeletal: Yes: Muscle Weakness. No: Back Pain, Joint Swelling Integumentary: Yes: Pallor. No: Bruising, Change in Color, Rash Neurological: Yes: Weakness, Unsteady Gait, Ataxia, Dizziness. No: Headache Psychiatric: No: Anxiety, Depression Endocrine: No: Intolerance to Cold, Intolerance to Heat Hematologic/Lymphatic: Yes: Anemia, Easy Bruising <Victor Hugo Fuentes - Last Filed: 04/17/18 07:19> *Physical Exam - Vital Signs Last Vital Signs Temp Pulse Resp BP Pulse Ox 97.6 F 82 18 138/76 99 04/16/18 14:05 04/16/18 14:05 04/16/18 14:05 04/16/18 14:05 04/16/18 14:05 - Physical Exam General Appearance: Yes: Nourished, Appropriately Dressed, Cachetic, Thin. No: Apparent Distress HEENT: positive: EOMI, GENESIS, Normal ENT Inspection, Normal Voice, Pharynx Normal , Pale Conjunctivae. negative: Scleral Icterus (R), Scleral Icterus (L) Neck: positive: Trachea midline, Normal Thyroid, Supple. negative: Decreased range of motion, Lymphadenopathy (R), Lymphadenopathy (L) Respiratory/Chest: positive: Lungs Clear, Normal Breath Sounds. negative: Chest Tender, Respiratory Distress, Accessory Muscle Use, Decreased Breath Sounds, Crackles, Rales, Rhonchi Cardiovascular: positive: Regular Rhythm, Regular Rate, S1, S2. negative: Edema , JVD, Murmur Vascular Pulses: Dorsalis-Pedis (R): 2+, Doralis-Pedis (L): 2+ Gastrointestinal/Abdominal: positive: Normal Bowel Sounds, Soft. negative: Distended, Guarding, Rebound Lymphatic: negative: Adenopathy Musculoskeletal: positive: Normal Inspection, Decreased Range of Motion. negative: CVA Tenderness, Vertebral Tenderness Extremity: positive: Normal Inspection, Normal Range of Motion, Coldness Integumentary: positive: Dry, Pale, Cold Neurologic: positive: foot worker II-XII NML intact, Fully Oriented, Alert, Normal Mood/ Affect, Normal Response. negative: Confused, Disoriented <Victor Hugo Fuentes - Last Filed: 04/17/18 07:19> - Vital Signs Last Vital Signs Temp Pulse Resp BP Pulse Ox 97.9 F 88 18 133/75 100 04/16/18 17:05 04/16/18 17:05 04/16/18 17:05 04/16/18 17:05 04/16/18 17:05 <Diane Correa - Last Filed: 04/17/18 08:23> Heart Score/ECG Review - Electrocardiogram EKG: Normal - Age Age: >/= 65 - Risk Factors Risk Factors Heart Score: Yes Hx Hypertension Based on the list above the patient has:: 1-2 risk factors - ECG Intrepretation Rhythm: Regular Rhythm - Tatum Tatum: Normal - ST and T Non Specific ST-T Wave changes: No Flattened T Waves: No Prolonged Q-T Interval: No - ECG Impressions Normal ECG: Yes Non-specific ST Elevation: No WPW: No <Victor Hugo Fuentes - Last Filed: 04/17/18 07:19> ED Treatment Course - LABORATORY CBC & Chemistry Diagram: 04/16/18 15:22 04/16/18 15:22 <Victor Hugo Fuentes - Last Filed: 04/17/18 07:19> - LABORATORY CBC & Chemistry Diagram: 04/16/18 15:22 04/16/18 15:22 - ADDITIONAL ORDERS Additional order review: Laboratory Results 04/16/18 04/16/18 04/16/18 15:22 15:22 15:22 Sodium 135 L Potassium 3.6 Chloride 99 Carbon Dioxide 26 Anion Gap 10 BUN 30 H Creatinine 0.9 Creat Clearance w eGFR > 60 Random Glucose 108 H Calcium 8.3 L Phosphorus 5.4 H Magnesium 2.0 Total Bilirubin 0.3 AST 18 ALT 28 Alkaline Phosphatase 69 Total Protein 6.4 Albumin 3.2 L Urine Color Straw Urine Appearance Clear Urine pH 5.0 Ur Specific Preston 1.013 Urine Protein Negative Urine Glucose (UA) Negative Urine Ketones Negative Urine Blood 1+ H Urine Nitrite Negative Urine Bilirubin Negative Urine Urobilinogen Negative Ur Leukocyte Esterase Negative Urine WBC (Auto) 0-2 Urine RBC (Auto) <1 Ur Epithelial Cells Rare Urine Mucus Rare 04/16/18 15:22 RBC 3.89 MCV 76.5 L MCHC 32.9 RDW 18.5 H MPV 6.3 L Neutrophils % 77.7 D Lymphocytes % 18.0 D Monocytes % 3.6 L Eosinophils % 0.2 D Basophils % 0.5 - Medications Given in the ED: ED Medications Discontinued Medications Generic Name Dose Route Start Last Admin Trade Name Freq PRN Reason Stop Dose Admin Ondansetron HCl 4 mg 04/16/18 15:26 04/16/18 15:38 Zofran Injection IVPUSH 04/16/18 15:27 4 mg ONCE ONE Administration Sodium Chloride 1,000 ml 04/16/18 14:54 04/16/18 15:27 Normal Saline - IV 04/16/18 14:55 1,000 ml ONCE ONE Administration Sodium Chloride 1,000 ml 04/16/18 17:06 04/16/18 17:10 Normal Saline - IV 04/16/18 17:07 1,000 ml ONCE ONE Administration <Diane Correa - Last Filed: 04/17/18 08:23> Medical Decision Making - Medical Decision Making Mrs. Schneider is a 72 yo F w a pmh of HTN and duodenal carcinoma who presents to the ER after a syncopal episode earlier today at home while she was receiving chemo from her portocath. DD includes but not limited to: Syncope - Cardiogenic vs neurogenic syncope, Orthostatic hypotension, dehydration, vasovagal, anemia. Cardiogenic causes: wpw, brugada, long QT, Wellen, valvular effects - Will do EKG to assess. - Will do orthostatics as well. Plan: Ekg, cbc, cmp, UA/UC, fluids, zofran, re-assess. -ua/uc showed no signs of UTI EKG shows normal sinus rhythm - normal QT, no brugada, wpw, or wellens. Hb remarkable for 9.8 - around patients baseline. There is a slight bump in her BUN to 30, implying her syncope might be related to dehydration. Discussed case with Dr. Atkinson - we both believe her syncopal episode was likely due to dehydration and decreased PO intake. Dr. Atkinson will come assess patient in the ER. If she believes the syncope was not a result of cardiac related disease patient will be DCed with close FU. <Victor Hugo Fuentes - Last Filed: 04/17/18 07:19> *DC/Admit/Observation/Transfer - Discharge Dispostion Decision to Admit order: No <Victor Hugo Fuentes - Last Filed: 04/17/18 07:19> <Diane Correa - Last Filed: 04/17/18 08:23> Diagnosis at time of Disposition: Anemia, Syncope, Medication side effect - Discharge Dispostion Disposition: HOME Condition at time of disposition: Improved - Prescriptions Prescriptions: Nystatin Oral Suspension - [Nystatin Oral Susp 811821 Units/5 ML -] 5 ml PO QID #140 ml - Referrals Referrals: Charlene Echevarria MD [Primary Care Provider] - - Patient Instructions Printed Discharge Instructions: DI for Syncope in Adults (Fainting) Additional Instructions: You came into the ER because you felt like you were going to pass out. We believe this episode was due to dehydration. We did an echocardiogram which showed your heart was not having a heart attack or a slow rhythm. Please make sure to drink lots of fluids. Come back to the ER if you feel dizzy, lightheaded , pass out again, develop a fever or have any other new or worsening concerns. I have sent a prescription for Nystatin to [facility] on [facility]. Take as directed on the package insert. Do not take more than the recommended dose. Thank you for coming to the [facility] ER. We hope you feel better soon! Print Language: KITTITIAN - Post Discharge Activity
[2018-04-16] MEDS ORDERED: ONDANSETRON 4 MG/2 ML VIAL IVPUSH ONE (15:26)
[2018-04-16] MEDS ORDERED: ONDANSETRON 4 MG/2 ML VIAL ONE (15:31)
[2018-04-16 15:36] LABS: URINE APPEARANCE CLEAR; URINE BILIRUBIN NEGATIVE (<2.0 mg/dL); URINE COLOR STRAW; URINE GLUCOSE (UA) NEGATIVE (NEGATIVE); URINE KETONE NEGATIVE (NEGATIVE); URINE LEUK ESTERASE NEGATIVE (NEGATIVE); URINE NITRITE NEGATIVE (NEGATIVE); URINE PROTEIN NEGATIVE (NEGATIVE); URINE UROBILINOGEN NEGATIVE mg/dL (0.2-1.0)
[2018-04-16 15:39] LABS: BASO % 0.5 % (0-2.0); EOS % 0.2 % (0-4.5); HEMATOCRIT 29.8 % (32.4-45.2); HEMOGLOBIN 9.8 GM/dL (10.7-15.3); MCH 25.2 pg (25.7-33.7); MCHC 32.9 g/dl (32.0-36.0); MEAN CELL VOLUME 76.5 fl (80-96); MEAN PLT VOLUME 6.3 fl (7.5-11.1); MONO % 3.6 % (3.8-10.2); NEUT % 77.7 % (42.8-82.8); PLATELET COUNT 329 K/MM3 (134-434); RBC 3.89 M/mm3 (3.60-5.2); RDW 18.5 % (11.6-15.6); WHITE BLOOD COUNT 5.9 K/mm3 (4.0-10.0)
[2018-04-16 16:09] LABS: ALBUMIN 3.2 g/dl (3.4-5.0); ALK PHOS 69 U/L (45-117); ANION GAP 10 MMOL/L (8-16); BILIRUBIN,TOTAL 0.3 mg/dL (0.2-1); BLOOD UREA NITROGEN 30 mg/dL (7-18); CALCIUM 8.3 mg/dL (8.5-10.1); CHLORIDE 99 mmol/L (98-107); CO2 26 mmol/L (21-32); CREATININE 0.9 mg/dL (0.55-1.3); EPI CELLS RARE /HPF (FEW); GLUCOSE,RANDOM 108 mg/dL (74-106); POTASSIUM 3.6 mmol/L (3.5-5.1); SGOT/AST 18 U/L (15-37); SGPT/ALT 28 U/L (13-61); SODIUM 135 mmol/L (136-145); TOT PROT 6.4 g/dl (6.4-8.2); URINE MUCUS RARE
[2018-04-16 16:24] LABS: PHOSPHOROUS 5.4 mg/dL (2.5-4.9)
--- NOTE | 2018-04-16 16:35 | PDOC ---
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 gets chemo 3X this cycle, gets 2 cycles per month. on day 3/3 of this cycle +preceded by dizziness; no cp, sob, fever or chills, n/v/d, weakness or paresthesias. ate breakfast this morning. has had syncope previously, last 1 year ago where it also took place in setting of chemotherapy./ 04/16/18 17:29 04/16/18 17:31 - Physicial Exam PE: 04/16/18 17:31 NAD, well appearing, MMM, nl conjunctiva, anicteric; neck supple. lungs clear, + chest wall port on right chest. RRR, abdomen soft nontender. MATTHEW x4, no focal neuro deficits. No peripheral edema. normal color for ethnicity, WWP. 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 gets chemo 3X this cycle, gets 2 cycles per month. on day 3/3 of this cycle +preceded by dizziness; no cp, sob, fever or chills, n/v/d, weakness or paresthesias. ate breakfast this morning. has had syncope previously, last 1 year ago where it also took place in setting of chemotherapy./ vitals wnl, no fever, reassuring labs and lytes wnl. EKG NSR, nonischemic; EKG normal sinus rhythm, no interval abnormalities, narrow QRS, ST and T wave segments and morphology normal. Nonspecific T wave abnormalities in III. feels improved with IVF, able to teresa PO. feels better clinically, eager for discharge. called to her oncologist, Dr. Atkinson, who will come to reassess patient, unlikely cardiac etiology and more likely medication/uptitration of her chemo regimen and prior similar episode, no neutropenic fever or electrolyte derangements or signs of infection, will discharge with close followup. 04/16/18 17:30 04/16/18 17:32 Heart Score/ECG Review - ECG Impressions Comment:: 04/16/18 16:58 EKG normal sinus rhythm, no interval abnormalities, narrow QRS, ST and T wave segments and morphology normal. Nonspecific T wave abnormalities in III.
[2018-04-16 17:06] VITALS: BP 133/75
--- NOTE | 2018-04-16 20:15 | PDOC ---
*Physical Exam - Vital Signs Last Vital Signs Temp Pulse Resp BP Pulse Ox 97.9 F 88 18 133/75 100 04/16/18 17:05 04/16/18 17:05 04/16/18 17:05 04/16/18 17:05 04/16/18 17:05 ED Treatment Course - LABORATORY CBC & Chemistry Diagram: 04/16/18 15:22 04/16/18 15:22 - ADDITIONAL ORDERS Additional order review: Laboratory Results 04/16/18 04/16/18 04/16/18 15:22 15:22 15:22 Sodium 135 L Potassium 3.6 Chloride 99 Carbon Dioxide 26 Anion Gap 10 BUN 30 H Creatinine 0.9 Creat Clearance w eGFR > 60 Random Glucose 108 H Calcium 8.3 L Phosphorus 5.4 H Magnesium 2.0 Total Bilirubin 0.3 AST 18 ALT 28 Alkaline Phosphatase 69 Total Protein 6.4 Albumin 3.2 L Urine Color Straw Urine Appearance Clear Urine pH 5.0 Ur Specific [place] 1.013 Urine Protein Negative Urine Glucose (UA) Negative Urine Ketones Negative Urine Blood 1+ H Urine Nitrite Negative Urine Bilirubin Negative Urine Urobilinogen Negative Ur Leukocyte Esterase Negative Urine WBC (Auto) 0-2 Urine RBC (Auto) <1 Ur Epithelial Cells Rare Urine Mucus Rare 04/16/18 15:22 RBC 3.89 MCV 76.5 L MCHC 32.9 RDW 18.5 H MPV 6.3 L Neutrophils % 77.7 D Lymphocytes % 18.0 D Monocytes % 3.6 L Eosinophils % 0.2 D Basophils % 0.5 - Medications Given in the ED: ED Medications Discontinued Medications Generic Name Dose Route Start Last Admin Trade Name Kuldeepq PRN Reason Stop Dose Admin Ondansetron HCl 4 mg 04/16/18 15:26 04/16/18 15:38 Zofran Injection IVPUSH 04/16/18 15:27 4 mg ONCE ONE Administration Sodium Chloride 1,000 ml 04/16/18 14:54 04/16/18 15:27 Normal Saline - IV 04/16/18 14:55 1,000 ml ONCE ONE Administration Sodium Chloride 1,000 ml 04/16/18 17:06 04/16/18 17:10 Normal Saline - IV 04/16/18 17:07 1,000 ml ONCE ONE Administration Medical Decision Making - Medical Decision Making 04/16/18 19:40 Received sign out from resident Dr. Toussaint. In short, 04/16/18 20:01 In [address] with Dr. Atkinson, pt's oncologist. States pt reported to her that she never completely lost awareness during her episode earlier today. Believes pt is stable to discharge home. Requested a prescription for Nystatin swish and swallow. *DC/Admit/Observation/Transfer Diagnosis at time of Disposition: Anemia, Syncope - Discharge Dispostion Disposition: HOME Condition at time of disposition: Good - Referrals Referrals: Charlene Echevarria MD [Primary Care Provider] - - Patient Instructions Printed Discharge Instructions: DI for Syncope in Adults (Fainting) Additional Instructions: You came into the ER because you felt like you were going to pass out. We believe this episode was due to dehydration. We did an echocardiogram which showed your heart was not having a heart attack or a slow rhythm. Please make sure to drink lots of fluids. Come back to the ER if you feel dizzy, lightheaded , pass out again, develop a fever or have any other new or worsening concerns. [facility]. Take as directed on the package insert. Do not take more than the recommended dose. Thank you for coming to the [facility] ER. We hope you feel better soon! Print Language: PASHTO - Post Discharge Activity
[2018-04-16 20:43] VITALS: PULSE 80; TEMP 98.7
--- NOTE | 2018-04-16 23:21 | CONSULT ---
Consult - text type - Consultation Consultation Note: Mrs. Schneider is a 72 yo F w a pmh of HTN and duodenal carcinoma who presents to the ER after a nearsyncopal episode earlier today at home. She states that she was sitting on her couch and then all of a sudden felt lightheaded and and bent her head down on the table. She was aware of what was happening and did not pass out. No head injury. She was aware of her sorrounding but felt very faint She denies hitting her head. She denies having experienced any chest pain, SOB, difficulty breathing, headache, dysuria, frequency, urgency, recent fevers, chills or infections. Social hx: Denies cigarette, alcohol, or illicit drug usage. Allergies: Penicillin - Past Medical History Cancer: Yes (duodenal-receiving chemo, adenocarcimoma) HTN: Yes Hypercholesterolemia: Yes Thyroid Disease: Yes - Suicide/Smoking/Psychosocial Hx Smoking History: Never smoked Allergies/Adverse Reactions: Allergies Allergy/AdvReac Type Severity Reaction Status Date / Time Penicillins AdvReac Unknown "happened Verified 03/25/18 06:46 as a child-?reaction" Home Medications: Ambulatory Orders Amlodipine Besylate [Norvasc -] 10 mg PO DAILY 03/31/17 Atorvastatin Ca [Lipitor] 10 mg PO HS 03/31/17 Esomeprazole Mag Trihydrate [NexIUM for SUSP] 40 mg PO DAILY 03/31/17 Levothyroxine [Synthroid -] 25 mcg PO DAILY 03/31/17 Pyridoxine HCl (B-6) [Vitamin B6] 100 mg PO DAILY 03/24/18 Nystatin Oral Suspension - [Nystatin Oral Susp [id number] Units/5 ML -] 5 ml PO QID #140 ml 04/16/18 - Vital Signs Last Vital Signs Temp Pulse Resp BP Pulse Ox 97.6 F 82 18 138/76 99 04/16/18 14:05 04/16/18 14:05 04/16/18 14:05 04/16/18 14:05 04/16/18 14:05 Cor: RSR, No murmurs, No gallops Lungs: Clear to P&A Abd: Soft, Normal bowel sounds, No organomegaly Ext:No significant edema Abnormal Lab Results 04/16/18 04/16/18 04/16/18 15:22 15:22 15:22 Hgb 9.8 L Hct 29.8 L MCV 76.5 L MCH 25.2 L RDW 18.5 H MPV 6.3 L Monocytes % 3.6 L Sodium 135 L BUN 30 H Random Glucose 108 H Calcium 8.3 L Phosphorus Albumin 3.2 L Urine Blood 1+ H 04/16/18 15:22 Hgb Hct MCV MCH RDW MPV Monocytes % Sodium BUN Random Glucose Calcium Phosphorus 5.4 H Albumin Urine Blood A/P Mrs. Schneider is a 72 yo F w a pmh of HTN and duodenal carcinoma who presents to the ER after a nearsyncopal episode earlier today at home while she was receiving 5- FU pump. She felt faint, weak and became near syncopal but was aware of her sorroundings and did not pass out She is much improved with 2liter hydration LAbs are WNL Clinically suspect dehydration from poor PO intake No signs/symptoms of cardiac arrhythmia/infection Nystatin for thrush
--- NOTE | 2018-04-17 17:09 | EKG ---
Test Reason : Blood Pressure : / mmHG Vent. Rate : 076 BPM Atrial Rate : 076 BPM P-R Int : 146 ms QRS Dur : 068 ms QT Int : 426 ms P-R-T Axes : 045 -01 024 degrees QTc Int : 479 ms NORMAL SINUS RHYTHM NORMAL ECG WHEN COMPARED WITH ECG OF 17-FEB-2001 12:07, QT HAS LENGTHENED CLINICAL CORRELATION IS RECOMMENDED BASELINE ARTIFACT Confirmed by MARGUERITE TIDWELL, WATSON ([id number]) on 04/17/2018 5:09:30 PM Referred By: Confirmed By:WATSON EVERETT MD
== END 2018-04-16 20:44 | disposition home or self-care (01) ==
LOC: JER 14:00
PROC: 3E033GC Introduction of Other Therapeutic Substance into Peripheral Vein, Percutaneous Approach (ICD-10-PCS; principal; 2018-04-16)
DX: R51 Headache (principal); D64.9 Anemia, unspecified; C17.0 Malignant neoplasm of duodenum; I10 Essential (primary) hypertension; E78.00 Pure hypercholesterolemia, unspecified
CPT/HCPCS: 36415; 80053; 81003; 81015; 83735; 84100; 85025; 87086; 93005; 93010; 96374; 99283-25

== ENCOUNTER 2018-05-05 07:51 | Day surgery (SDC) | payer OTHER ==
[2018-05-05] MEDS ORDERED: DEXAMETHASONE INJECTION 10 MG in SODIUM CHLORIDE 50 ML IVPB ONE (10:00)
[2018-05-05] MEDS ORDERED: PALONOSETRON HCL 0.25 MG/5 ML VIAL IVPUSH ONE (10:00)
[2018-05-05] MEDS ORDERED: ATROPINE SO4 0.4 MG/1 ML VIAL IVPUSH ONE (10:00)
[2018-05-05] MEDS ORDERED: DEXTROSE 5% IVPB ONE (10:30)
[2018-05-05] MEDS ORDERED: LEUCOVORIN IVPB ONE (10:30)
[2018-05-05] MEDS ORDERED: WATER IVPB ONE (10:30)
[2018-05-05] MEDS ORDERED: IRINOTECAN HCL 240 MG in DEXTROSE 5%-WATER - 500 ML IVPB ONE (11:00)
[2018-05-05 11:38] LABS: BASO % 0.8 % (0-2.0); EOS % 2.9 % (0-4.5); HEMATOCRIT 33.6 % (32.4-45.2); HEMOGLOBIN 10.8 GM/dL (10.7-15.3); LYMPH % 30.8 % (8-40); MCH 24.8 pg (25.7-33.7); MCHC 32.2 g/dl (32.0-36.0); MEAN PLT VOLUME 6.7 fl (7.5-11.1); MONO % 7.6 % (3.8-10.2); NEUT % 57.9 % (42.8-82.8); PLATELET COUNT 425 K/MM3 (134-434); RBC 4.36 M/mm3 (3.60-5.2); RDW 19.2 % (11.6-15.6); WHITE BLOOD COUNT 6.4 K/mm3 (4.0-10.0)
[2018-05-05 11:54] LABS: ALBUMIN 3.4 g/dl (3.4-5.0); ALK PHOS 78 U/L (45-117); ANION GAP 11 MMOL/L (8-16); BILIRUBIN,DIRECT 0.1 mg/dL (0.0-0.2); BILIRUBIN,TOTAL 0.2 mg/dL (0.2-1); BLOOD UREA NITROGEN 23 mg/dL (7-18); CALCIUM 8.6 mg/dL (8.5-10.1); CHLORIDE 105 mmol/L (98-107); CO2 22 mmol/L (21-32); CREATININE 0.9 mg/dL (0.55-1.3); GLUCOSE,RANDOM 130 mg/dL (74-106); MAGNESIUM 2.2 mg/dL (1.8-2.4); SGOT/AST 19 U/L (15-37); SGPT/ALT 24 U/L (13-61); SODIUM 138 mmol/L (136-145)
[2018-05-05] MEDS ORDERED: SODIUM CHLORIDE 500 ML IV SCH (12:00)
[2018-05-05] MEDS ORDERED: FLUOROURACIL CP ONE (12:30)
[2018-05-05] MEDS ORDERED: SODIUM CHLORIDE CP ONE (12:30)
[2018-05-05 14:43] VITALS: TEMP 97.7
[2018-05-05 17:00] VITALS: BP 138/73; PULSE 87
[2018-05-05] MEDS ORDERED: PORTA CATH FLUSH 10 ML IVPUSH ONE (17:00)
== END 2018-05-05 17:01 | disposition home or self-care (01) ==
LOC: JONCCHEMO 07:51 → J7W 12:25 → JONCCHEMO 17:01
PROVIDERS: ATTEND Internal Medicine Hematology & Oncology
DX: Z51.11 Encounter for antineoplastic chemotherapy (principal); C17.0 Malignant neoplasm of duodenum
CPT/HCPCS: 36415; 80053; 80076; 82378; 83735; 85025; 96361; 96367; 96375; 96413; 96415; 96417; G0498; J1100; J2469; J7030; J9206

== ENCOUNTER 2018-05-07 07:38 | Day surgery (SDC) | payer OTHER ==
[2018-05-07] MEDS ORDERED: SODIUM CHLORIDE 1,000 ML IV SCH (15:00)
[2018-05-07 16:28] VITALS: TEMP 98
[2018-05-07 16:37] VITALS: BP 111/61; PULSE 78
[2018-05-07] MEDS ORDERED: PORTA CATH FLUSH 10 ML IVPUSH ONE (16:37)
== END 2018-05-07 16:46 | disposition home or self-care (01) ==
LOC: JONCCHEMO 07:38 → J7W 14:42 → JONCCHEMO 16:46
PROVIDERS: ATTEND Internal Medicine Hematology & Oncology
PROC: 3E0437Z Introduction of Electrolytic and Water Balance Substance into Central Vein, Percutaneous Approach (ICD-10-PCS; principal; 2018-05-07)
DX: C17.0 Malignant neoplasm of duodenum (principal); Z76.89 Persons encountering health services in other specified circumstances
CPT/HCPCS: 96360; 96361; J7030

== ENCOUNTER 2018-05-26 07:24 | Day surgery (SDC) | payer OTHER ==
[2018-05-26] MEDS ORDERED: PALONOSETRON HCL 0.25 MG/5 ML VIAL IVPUSH ONE (08:00)
[2018-05-26] MEDS ORDERED: DEXAMETHASONE INJECTION 10 MG in SODIUM CHLORIDE 50 ML IVPB ONE (08:00)
[2018-05-26] MEDS ORDERED: ATROPINE SULFATE 1 MG/10 ML DISP.SYRIN IVPUSH ONE (08:00)
[2018-05-26] MEDS ORDERED: LEUCOVORIN IVPB ONE (08:30)
[2018-05-26] MEDS ORDERED: DEXTROSE 5% IVPB ONE (08:30)
[2018-05-26] MEDS ORDERED: WATER IVPB ONE (08:30)
[2018-05-26] MEDS ORDERED: IRINOTECAN HCL 240 MG in DEXTROSE 5%-WATER - 500 ML IVPB ONE (08:30)
[2018-05-26] MEDS ORDERED: FLUOROURACIL CP ONE (10:00)
[2018-05-26] MEDS ORDERED: SODIUM CHLORIDE CP ONE (10:00)
[2018-05-26] MEDS ORDERED: SODIUM CHLORIDE 1,000 ML IV STA (12:14)
[2018-05-26] MEDS ORDERED: ALTEPLASE 2 MG VIAL CVP ONE (13:30)
[2018-05-26 13:36] LABS: BASO % 0.8 % (0-2.0); EOS % 2.3 % (0-4.5); HEMOGLOBIN 10.4 GM/dL (10.7-15.3); MCH 24.1 pg (25.7-33.7); MCHC 31.5 g/dl (32.0-36.0); MEAN CELL VOLUME 76.5 fl (80-96); MEAN PLT VOLUME 6.8 fl (7.5-11.1); MONO % 10.7 % (3.8-10.2); NEUT % 63.2 % (42.8-82.8); PLATELET COUNT 435 K/MM3 (134-434); RBC 4.31 M/mm3 (3.60-5.2); RDW 18.9 % (11.6-15.6); WHITE BLOOD COUNT 7.7 K/mm3 (4.0-10.0)
[2018-05-26 14:00] LABS: ALBUMIN 3.6 g/dl (3.4-5.0); ALK PHOS 80 U/L (45-117); ANION GAP 7 MMOL/L (8-16); BILIRUBIN,TOTAL 0.2 mg/dL (0.2-1); BLOOD UREA NITROGEN 21 mg/dL (7-18); CHLORIDE 104 mmol/L (98-107); CO2 27 mmol/L (21-32); CREATININE 0.8 mg/dL (0.55-1.3); GLUCOSE,RANDOM 91 mg/dL (74-106); MAGNESIUM 2.3 mg/dL (1.8-2.4); POTASSIUM 4.4 mmol/L (3.5-5.1); SGOT/AST 21 U/L (15-37); SGPT/ALT 26 U/L (13-61); SODIUM 138 mmol/L (136-145); TOT PROT 6.8 g/dl (6.4-8.2)
[2018-05-26] MEDS ORDERED: PORTA CATH FLUSH 10 ML IVPUSH ONE (17:03)
[2018-05-26 18:08] VITALS: BP 142/82; PULSE 92; TEMP 97.8
== END 2018-05-26 18:12 | disposition home or self-care (01) ==
LOC: JONCCHEMO 07:24 → J7W 12:29 → JONCCHEMO 18:12
PROVIDERS: ATTEND Internal Medicine Hematology & Oncology
DX: Z51.11 Encounter for antineoplastic chemotherapy (principal); C16.9 Malignant neoplasm of stomach, unspecified
CPT/HCPCS: 36415; 80053; 83735; 85025; 96361; 96366; 96367; 96375; 96413; 96415; 96417; G0498; J1100; J2469; J2997; J7030; J9206

== ENCOUNTER 2018-05-28 07:34 | Day surgery (SDC) | payer OTHER ==
[2018-05-28 17:12] VITALS: BP 118/68; PULSE 74; TEMP 97.7
[2018-05-28] MEDS ORDERED: PORTA CATH FLUSH 10 ML IVPUSH ONE (17:12)
== END 2018-05-28 17:13 | disposition home or self-care (01) ==
LOC: JONCCHEMO 07:34
PROVIDERS: ATTEND Internal Medicine Hematology & Oncology

== ENCOUNTER 2018-06-16 07:40 | Day surgery (SDC) | payer OTHER ==
[2018-06-16] MEDS ORDERED: ATROPINE SO4 0.4 MG/1 ML VIAL IVPUSH ONE (10:00)
[2018-06-16] MEDS ORDERED: DEXAMETHASONE SODIUM PHOSPHATE 10 MG in SODIUM CHLORIDE 50 ML IVPB ONE (10:00)
[2018-06-16] MEDS ORDERED: PALONOSETRON HCL 0.25 MG/5 ML VIAL IVPUSH ONE (10:00)
[2018-06-16] MEDS ORDERED: WATER IVPB ONE (10:30)
[2018-06-16] MEDS ORDERED: LEUCOVORIN IVPB ONE (10:30)
[2018-06-16] MEDS ORDERED: IRINOTECAN HCL 240 MG in DEXTROSE 5%-WATER - 500 ML IVPB ONE (10:30)
[2018-06-16] MEDS ORDERED: DEXTROSE 5% IVPB ONE (10:30)
[2018-06-16 10:32] LABS: BASO % 1.2 % (0-2.0); EOS % 4.5 % (0-4.5); HEMATOCRIT 31.9 % (32.4-45.2); HEMOGLOBIN 10.7 GM/dL (10.7-15.3); LYMPH % 30.2 % (8-40); MCH 25.3 pg (25.7-33.7); MCHC 33.7 g/dl (32.0-36.0); MEAN PLT VOLUME 6.7 fl (7.5-11.1); MONO % 9.8 % (3.8-10.2); NEUT % 54.3 % (42.8-82.8); PLATELET COUNT 444 K/MM3 (134-434); RBC 4.25 M/mm3 (3.60-5.2); RDW 18.5 % (11.6-15.6); WHITE BLOOD COUNT 7.2 K/mm3 (4.0-10.0)
[2018-06-16 11:12] LABS: ALBUMIN 3.4 g/dl (3.4-5.0); ALK PHOS 88 U/L (45-117); ANION GAP 9 MMOL/L (8-16); BILIRUBIN,DIRECT 0.1 mg/dL (0.0-0.2); BILIRUBIN,TOTAL 0.2 mg/dL (0.2-1); BLOOD UREA NITROGEN 23 mg/dL (7-18); CALCIUM 8.6 mg/dL (8.5-10.1); CHLORIDE 104 mmol/L (98-107); CO2 26 mmol/L (21-32); GLUCOSE,RANDOM 141 mg/dL (74-106); MAGNESIUM 2.1 mg/dL (1.8-2.4); POTASSIUM 4.6 mmol/L (3.5-5.1); SGOT/AST 15 U/L (15-37); SGPT/ALT 22 U/L (13-61); SODIUM 139 mmol/L (136-145); TOT PROT 6.7 g/dl (6.4-8.2)
[2018-06-16] MEDS ORDERED: FLUOROURACIL CP ONE (12:30)
[2018-06-16] MEDS ORDERED: SODIUM CHLORIDE CP ONE (12:30)
[2018-06-16 17:10] VITALS: TEMP 98
[2018-06-16 17:16] VITALS: BP 132/69; PULSE 88
[2018-06-16] MEDS ORDERED: PORTA CATH FLUSH 10 ML IVPUSH ONE (17:16)
[2018-06-17] MEDS ORDERED: PROCHLORPERAZINE INJECTION 10 MG/2 ML VIAL IVPB ONE (10:30)
[2018-06-17] MEDS ORDERED: PANTOPRAZOLE SODIUM 40 MG VIAL IVPB ONE (10:30)
[2018-06-17] MEDS ORDERED: SODIUM CHLORIDE 1,000 ML IV ONE (10:45)
[2018-06-17] MEDS ORDERED: DEXAMETHASONE SOD PHOSPHATE 10 MG/1 ML VIAL IVPB ONE (11:15)
== END 2018-06-16 15:15 | disposition home or self-care (01) ==
LOC: JONCCHEMO 07:40 → J7W 12:11 → JONCCHEMO 15:15
PROVIDERS: ATTEND Internal Medicine Hematology & Oncology
DX: Z51.11 Encounter for antineoplastic chemotherapy (principal); C16.9 Malignant neoplasm of stomach, unspecified
CPT/HCPCS: 36415; 80053; 80076; 83735; 85025; 96367; 96375; 96413; 96415; 96417; G0498; J2469; J9206

== ENCOUNTER 2018-06-17 11:08 | Day surgery (SDC) | payer OTHER ==
[2018-06-17] MEDS ORDERED: DEXAMETHASONE SOD PHOSPHATE 10 MG/1 ML VIAL ONE (11:25)
[2018-06-17] MEDS ORDERED: PANTOPRAZOLE SODIUM 40 MG VIAL IVPB ONE (12:00)
[2018-06-17] MEDS ORDERED: SODIUM CHLORIDE 1,000 ML IV SCH (12:00)
[2018-06-17] MEDS ORDERED: DEXAMETHASONE SOD PHOSPHATE 10 MG/1 ML VIAL IVPB ONE (12:00)
[2018-06-17 17:09] VITALS: BP 137/81; PULSE 92; TEMP 98
[2018-06-17] MEDS ORDERED: PORTA CATH FLUSH 10 ML IVPUSH ONE (17:09)
== END 2018-06-17 17:00 | disposition home or self-care (01) ==
LOC: JONCNONCHE 11:08 → J7W 11:10 → JONCNONCHE 17:00
PROVIDERS: ATTEND Internal Medicine Hematology & Oncology
PROC: 3E0337Z Introduction of Electrolytic and Water Balance Substance into Peripheral Vein, Percutaneous Approach (ICD-10-PCS; principal; 2018-06-17)
PROC: 3E043GC Introduction of Other Therapeutic Substance into Central Vein, Percutaneous Approach (ICD-10-PCS; 2018-06-17)
DX: C16.9 Malignant neoplasm of stomach, unspecified (principal)
CPT/HCPCS: 96361; 96365; 96366; 96367; 96375; J1100; J7030

== ENCOUNTER 2018-06-18 07:33 | Day surgery (SDC) | payer OTHER ==
[2018-06-18] MEDS ORDERED: PORTA CATH FLUSH 10 ML IVPUSH ONE (18:41)
[2018-06-18 18:42] VITALS: BP 125/69; PULSE 83; TEMP 97.9
== END 2018-06-18 18:44 | disposition home or self-care (01) ==
LOC: JONCCHEMO 07:33
PROVIDERS: ATTEND Internal Medicine Hematology & Oncology
PROC: 0JPVXVZ Removal of Infusion Pump from Upper Extremity Subcutaneous Tissue and Fascia, External Approach (ICD-10-PCS; principal; 2018-06-18)
DX: Z53.8 Procedure and treatment not carried out for other reasons (principal)

== ENCOUNTER 2018-07-07 05:47 | Day surgery (SDC) | payer OTHER ==
[2018-07-07] MEDS ORDERED: ATROPINE SULFATE 1 MG/10 ML DISP.SYRIN IVPUSH ONE (08:00)
[2018-07-07] MEDS ORDERED: PALONOSETRON HCL 0.25 MG/5 ML VIAL IVPUSH ONE (08:00)
[2018-07-07] MEDS ORDERED: DEXAMETHASONE INJECTION 10 MG in SODIUM CHLORIDE 50 ML IVPB ONE (08:00)
[2018-07-07] MEDS ORDERED: IRINOTECAN HCL 240 MG in DEXTROSE 5%-WATER - 500 ML IVPB ONE (08:30)
[2018-07-07] MEDS ORDERED: DEXTROSE 5% IVPB ONE (08:30)
[2018-07-07] MEDS ORDERED: WATER IVPB ONE (08:30)
[2018-07-07] MEDS ORDERED: LEUCOVORIN IVPB ONE (08:30)
[2018-07-07] MEDS ORDERED: FLUOROURACIL CP ONE (10:00)
[2018-07-07] MEDS ORDERED: SODIUM CHLORIDE CP ONE (10:00)
[2018-07-07 10:57] LABS: BASO % 0.6 % (0-2.0); EOS % 4.2 % (0-4.5); HEMATOCRIT 30.6 % (32.4-45.2); HEMOGLOBIN 10.2 GM/dL (10.7-15.3); LYMPH % 28.8 % (8-40); MCH 24.9 pg (25.7-33.7); MCHC 33.3 g/dl (32.0-36.0); MEAN CELL VOLUME 74.7 fl (80-96); MEAN PLT VOLUME 6.7 fl (7.5-11.1); NEUT % 57.4 % (42.8-82.8); PLATELET COUNT 428 K/MM3 (134-434); RDW 18.8 % (11.6-15.6); WHITE BLOOD COUNT 7.2 K/mm3 (4.0-10.0)
[2018-07-07 11:51] LABS: ALBUMIN 3.3 g/dl (3.4-5.0); ALBUMIN 3.4 g/dl (3.4-5.0); ALK PHOS 91 U/L (45-117); ANION GAP 7 MMOL/L (8-16); BILIRUBIN,DIRECT 0.1 mg/dL (0.0-0.2); BILIRUBIN,TOTAL 0.2 mg/dL (0.2-1); BLOOD UREA NITROGEN 22 mg/dL (7-18); CALCIUM 8.6 mg/dL (8.5-10.1); CHLORIDE 106 mmol/L (98-107); CO2 27 mmol/L (21-32); CREATININE 0.8 mg/dL (0.55-1.3); GLUCOSE,RANDOM 130 mg/dL (74-106); POTASSIUM 4.4 mmol/L (3.5-5.1); SGOT/AST 16 U/L (15-37); SGPT/ALT 24 U/L (13-61); SODIUM 140 mmol/L (136-145); TOT PROT 6.5 g/dl (6.4-8.2); TOT PROT 6.6 g/dl (6.4-8.2)
[2018-07-07] MEDS ORDERED: SODIUM CHLORIDE 500 ML IV STA (12:02)
[2018-07-07 18:20] VITALS: BP 161/89; PULSE 96
[2018-07-07 18:21] VITALS: TEMP 98
== END 2018-07-07 17:15 | disposition home or self-care (01) ==
LOC: JONCCHEMO 05:47 → J7W 12:36 → JONCCHEMO 17:15
PROVIDERS: ATTEND Internal Medicine Hematology & Oncology
DX: Z51.11 Encounter for antineoplastic chemotherapy (principal); C16.9 Malignant neoplasm of stomach, unspecified
CPT/HCPCS: 36415; 80053; 80076; 83735; 84439; 84443; 85025; 96361; 96367; 96375; 96413; 96415; 96417; G0498; J1100; J2469; J9206

== ENCOUNTER 2018-07-09 11:09 | Day surgery (SDC) | payer OTHER ==
[2018-07-09] MEDS ORDERED: SODIUM CHLORIDE 1,000 ML IV ONE (15:30)
[2018-07-09] MEDS ORDERED: PORTA CATH FLUSH 10 ML IVPUSH ONE (15:32)
[2018-07-09 15:33] VITALS: TEMP 97.9
[2018-07-09 17:20] VITALS: BP 124/70; PULSE 75
== END 2018-07-09 17:24 | disposition home or self-care (01) ==
LOC: JONCCHEMO 11:09 → J7W 15:01 → JONCCHEMO 17:24
PROVIDERS: ATTEND Internal Medicine Hematology & Oncology
PROC: 3E0437Z Introduction of Electrolytic and Water Balance Substance into Central Vein, Percutaneous Approach (ICD-10-PCS; principal; 2018-07-09)
DX: C16.9 Malignant neoplasm of stomach, unspecified (principal)
CPT/HCPCS: 96360; 96361; J7030

== ENCOUNTER 2018-07-28 05:33 | Day surgery (SDC) | payer OTHER ==
[2018-07-28] MEDS ORDERED: PALONOSETRON HCL 0.25 MG/5 ML VIAL IVPUSH ONE (08:00)
[2018-07-28] MEDS ORDERED: DEXAMETHASONE SODIUM PHOSPHATE 10 MG in SODIUM CHLORIDE 50 ML IVPB ONE (08:00)
[2018-07-28] MEDS ORDERED: ATROPINE SULFATE 1 MG/10 ML DISP.SYRIN IVPUSH ONE (08:00)
[2018-07-28] MEDS ORDERED: LEUCOVORIN IVPB ONE (08:30)
[2018-07-28] MEDS ORDERED: IRINOTECAN HCL 240 MG in DEXTROSE 5%-WATER - 500 ML IVPB ONE (08:30)
[2018-07-28] MEDS ORDERED: DEXTROSE 5% IVPB ONE (08:30)
[2018-07-28] MEDS ORDERED: WATER IVPB ONE (08:30)
[2018-07-28] MEDS ORDERED: FLUOROURACIL CP ONE (10:00)
[2018-07-28] MEDS ORDERED: SODIUM CHLORIDE CP ONE (10:00)
[2018-07-28 10:39] LABS: BASO % 0.6 % (0-2.0); EOS % 3.5 % (0-4.5); HEMATOCRIT 32.1 % (32.4-45.2); HEMOGLOBIN 10.5 GM/dL (10.7-15.3); LYMPH % 32.8 % (8-40); MCH 24.3 pg (25.7-33.7); MCHC 32.6 g/dl (32.0-36.0); MEAN CELL VOLUME 74.6 fl (80-96); MEAN PLT VOLUME 6.4 fl (7.5-11.1); MONO % 9.4 % (3.8-10.2); NEUT % 53.7 % (42.8-82.8); PLATELET COUNT 445 K/MM3 (134-434); RDW 18.3 % (11.6-15.6); WHITE BLOOD COUNT 6.5 K/mm3 (4.0-10.0)
[2018-07-28 11:11] LABS: ALBUMIN 3.4 g/dl (3.4-5.0); ALK PHOS 90 U/L (45-117); ANION GAP 9 MMOL/L (8-16); BILIRUBIN,DIRECT 0.1 mg/dL (0.0-0.2); BILIRUBIN,TOTAL 0.3 mg/dL (0.2-1); BLOOD UREA NITROGEN 20 mg/dL (7-18); CALCIUM 8.7 mg/dL (8.5-10.1); CHLORIDE 104 mmol/L (98-107); CO2 27 mmol/L (21-32); CREATININE 0.9 mg/dL (0.55-1.3); GLUCOSE,RANDOM 126 mg/dL (74-106); POTASSIUM 4.3 mmol/L (3.5-5.1); SGOT/AST 9 U/L (15-37); SGPT/ALT 20 U/L (13-61); SODIUM 140 mmol/L (136-145); TOT PROT 6.6 g/dl (6.4-8.2)
[2018-07-28 11:27] VITALS: TEMP 97.9
[2018-07-28] MEDS ORDERED: SODIUM CHLORIDE 1,000 ML IV SCH (12:00)
[2018-07-28 16:20] VITALS: BP 148/77; PULSE 100
== END 2018-07-28 16:21 | disposition home or self-care (01) ==
LOC: JONCCHEMO 05:33 → J7W 10:20 → JONCCHEMO 10:20 → J7W 11:37 → JONCCHEMO 16:21
PROVIDERS: ATTEND Internal Medicine Hematology & Oncology
DX: Z51.11 Encounter for antineoplastic chemotherapy (principal); C16.9 Malignant neoplasm of stomach, unspecified
CPT/HCPCS: 36415; 80048; 80076; 83735; 85025; 96361; 96367; 96375; 96413; 96415; 96417; G0498; J2469; J7030; J9206

== ENCOUNTER 2018-07-30 07:03 | Day surgery (SDC) | payer OTHER ==
[2018-07-30] MEDS ORDERED: SODIUM CHLORIDE 1,000 ML IV STA (14:28)
[2018-07-30 15:34] VITALS: TEMP 98.3
[2018-07-30] MEDS ORDERED: PORTA CATH FLUSH 10 ML IVPUSH ONE (15:36)
[2018-07-30 17:13] VITALS: BP 139/70; PULSE 76
== END 2018-07-30 17:16 | disposition home or self-care (01) ==
LOC: JONCCHEMO 07:03 → J7W 14:15 → JONCCHEMO 17:16
PROVIDERS: ATTEND Internal Medicine Hematology & Oncology
PROC: 3E0437Z Introduction of Electrolytic and Water Balance Substance into Central Vein, Percutaneous Approach (ICD-10-PCS; principal; 2018-07-30)
DX: C16.9 Malignant neoplasm of stomach, unspecified (principal)
CPT/HCPCS: 96360; 96361; J7030

== ENCOUNTER 2018-08-18 07:11 | Day surgery (SDC) | payer OTHER ==
[2018-08-18] MEDS ORDERED: DEXAMETHASONE SODIUM PHOSPHATE 10 MG in SODIUM CHLORIDE 50 ML IVPB ONE (10:00)
[2018-08-18] MEDS ORDERED: ATROPINE SO4 0.4 MG/1 ML VIAL IVPUSH ONE (10:00)
[2018-08-18] MEDS ORDERED: PALONOSETRON HCL 0.25 MG/5 ML VIAL IVPUSH ONE (10:00)
[2018-08-18] MEDS ORDERED: DEXTROSE 5% IVPB ONE (10:30)
[2018-08-18] MEDS ORDERED: WATER IVPB ONE (10:30)
[2018-08-18] MEDS ORDERED: LEUCOVORIN IVPB ONE (10:30)
[2018-08-18 10:58] LABS: BASO % 0.6 % (0-2.0); EOS % 4.2 % (0-4.5); HEMOGLOBIN 10.1 GM/dL (10.7-15.3); LYMPH % 29.4 % (8-40); MCH 24.1 pg (25.7-33.7); MCHC 32.5 g/dl (32.0-36.0); MEAN PLT VOLUME 6.5 fl (7.5-11.1); NEUT % 56.8 % (42.8-82.8); PLATELET COUNT 446 K/MM3 (134-434); RBC 4.18 M/mm3 (3.60-5.2); RDW 18.3 % (11.6-15.6); WHITE BLOOD COUNT 7.1 K/mm3 (4.0-10.0)
[2018-08-18] MEDS ORDERED: IRINOTECAN HCL 240 MG in DEXTROSE 5%-WATER - 500 ML IVPB ONE (11:00)
[2018-08-18 11:31] LABS: ALBUMIN 3.4 g/dl (3.4-5.0); ALK PHOS 88 U/L (45-117); ANION GAP 7 MMOL/L (8-16); BILIRUBIN,DIRECT 0.1 mg/dL (0.0-0.2); BILIRUBIN,TOTAL 0.3 mg/dL (0.2-1); BLOOD UREA NITROGEN 18 mg/dL (7-18); CALCIUM 8.6 mg/dL (8.5-10.1); CHLORIDE 102 mmol/L (98-107); CHOLESTEROL 177 mg/dL (50-200); CO2 28 mmol/L (21-32); CREATININE 0.8 mg/dL (0.55-1.3); GLUCOSE,RANDOM 135 mg/dL (74-106); HDL CHOLESTEROL 48 mg/dL (40-60); MAGNESIUM 2.3 mg/dL (1.8-2.4); POTASSIUM 4.4 mmol/L (3.5-5.1); SGOT/AST 11 U/L (15-37); SGPT/ALT 21 U/L (13-61); SODIUM 137 mmol/L (136-145); TOT PROT 6.9 g/dl (6.4-8.2); TRIGLYCERIDES 180 mg/dL (0-150)
[2018-08-18] MEDS ORDERED: FLUOROURACIL CP ONE (12:30)
[2018-08-18] MEDS ORDERED: SODIUM CHLORIDE CP ONE (12:30)
[2018-08-18] MEDS ORDERED: SODIUM CHLORIDE 1,000 ML IV SCH (13:00)
[2018-08-18 18:28] VITALS: TEMP 98.5
[2018-08-18 18:37] VITALS: BP 135/85; PULSE 88
[2018-08-18] MEDS ORDERED: PORTA CATH FLUSH 10 ML IVPUSH ONE (18:37)
== END 2018-08-18 17:00 | disposition home or self-care (01) ==
LOC: JONCCHEMO 07:11 → J7W 12:09 → JONCCHEMO 17:00
PROVIDERS: ATTEND Internal Medicine Hematology & Oncology
DX: Z51.11 Encounter for antineoplastic chemotherapy (principal); C16.9 Malignant neoplasm of stomach, unspecified
CPT/HCPCS: 36415; 80048; 80061; 80076; 82378; 83721; 83735; 85025; 96361; 96367; 96375; 96413; 96415; 96417; J2469; J7030; J9206

== ENCOUNTER 2018-08-20 06:41 | Day surgery (SDC) | payer OTHER ==
[2018-08-20] MEDS ORDERED: SODIUM CHLORIDE 1,000 ML IV STA ×2 (15:26→15:28)
[2018-08-20 16:38] VITALS: TEMP 98.1
[2018-08-20] MEDS ORDERED: PORTA CATH FLUSH 10 ML IVPUSH ONE (16:41)
[2018-08-20 17:59] VITALS: BP 117/71; PULSE 71
== END 2018-08-20 17:40 | disposition home or self-care (01) ==
LOC: JONCCHEMO 06:41 → J7W 15:23 → JONCCHEMO 17:40
PROVIDERS: ATTEND Internal Medicine Hematology & Oncology
PROC: 3E0437Z Introduction of Electrolytic and Water Balance Substance into Central Vein, Percutaneous Approach (ICD-10-PCS; principal; 2018-08-20)
DX: C16.9 Malignant neoplasm of stomach, unspecified (principal)
CPT/HCPCS: 96360; 96361; J7030

== ENCOUNTER 2018-09-15 07:19 | Day surgery (SDC) | payer OTHER ==
[~2018-09-15 07:19] MED LIST changes: +ATROPINE SULFATE 1 MG/10 ML DISP.SYRIN IVPUSH ONE; +DEXAMETHASONE SODIUM PHOSPHATE 10 MG in SODIUM CHLORIDE 50 ML IVPB ONE; +DEXTROSE 5% IVPB ONE; +FLUOROURACIL CP ONE; +IRINOTECAN HCL 240 MG in DEXTROSE 5%-WATER - 500 ML IVPB ONE; +LEUCOVORIN IVPB ONE; +PALONOSETRON HCL 0.25 MG/5 ML VIAL IVPUSH ONE; +SODIUM CHLORIDE CP ONE; -TOBRAMYCIN/DEXAMETHASONE OPHTH. OINTMENT 1 TUBE TP ONE; +WATER IVPB ONE
[2018-09-15] MEDS ORDERED: DEXAMETHASONE SODIUM PHOSPHATE 10 MG in SODIUM CHLORIDE 50 ML IVPB ONE (08:00)
[2018-09-15] MEDS ORDERED: PALONOSETRON HCL 0.25 MG/5 ML VIAL IVPUSH ONE (08:00)
[2018-09-15] MEDS ORDERED: ATROPINE SULFATE 1 MG/10 ML DISP.SYRIN IVPUSH ONE (08:00)
[2018-09-15] MEDS ORDERED: WATER IVPB ONE (08:30)
[2018-09-15] MEDS ORDERED: IRINOTECAN HCL 240 MG in DEXTROSE 5%-WATER - 500 ML IVPB ONE (08:30)
[2018-09-15] MEDS ORDERED: DEXTROSE 5% IVPB ONE (08:30)
[2018-09-15] MEDS ORDERED: LEUCOVORIN IVPB ONE (08:30)
[2018-09-15] MEDS ORDERED: SODIUM CHLORIDE CP ONE (10:00)
[2018-09-15] MEDS ORDERED: FLUOROURACIL CP ONE (10:00)
[2018-09-15 10:47] LABS: BASO % 0.5 % (0-2.0); EOS % 3.2 % (0-4.5); HEMATOCRIT 33.5 % (32.4-45.2); LYMPH % 22.3 % (8-40); MCH 24.5 pg (25.7-33.7); MEAN CELL VOLUME 74.4 fl (80-96); MEAN PLT VOLUME 6.8 fl (7.5-11.1); MONO % 6.6 % (3.8-10.2); NEUT % 67.4 % (42.8-82.8); PLATELET COUNT 404 K/MM3 (134-434); RDW 18.9 % (11.6-15.6); WHITE BLOOD COUNT 10.4 K/mm3 (4.0-10.0)
[2018-09-15 11:18] LABS: ALBUMIN 3.4 g/dl (3.4-5.0); ALK PHOS 102 U/L (45-117); ANION GAP 9 MMOL/L (8-16); BILIRUBIN,TOTAL 0.3 mg/dL (0.2-1); BLOOD UREA NITROGEN 21 mg/dL (7-18); CALCIUM 8.9 mg/dL (8.5-10.1); CHLORIDE 103 mmol/L (98-107); CO2 26 mmol/L (21-32); CREATININE 0.9 mg/dL (0.55-1.3); GLUCOSE,RANDOM 115 mg/dL (74-106); POTASSIUM 4.7 mmol/L (3.5-5.1); SGOT/AST 12 U/L (15-37); SGPT/ALT 18 U/L (13-61); SODIUM 137 mmol/L (136-145); TOT PROT 6.9 g/dl (6.4-8.2)
[2018-09-15 11:22] LABS: ALBUMIN 3.4 g/dl (3.4-5.0); BILIRUBIN,DIRECT 0.1 mg/dL (0.0-0.2); BILIRUBIN,TOTAL 0.4 mg/dL (0.2-1); MAGNESIUM 2.2 mg/dL (1.8-2.4); TOT PROT 6.8 g/dl (6.4-8.2)
[2018-09-15] MEDS ORDERED: FOSAPREPITANT DIMEGLUMINE 150 MG in SODIUM CHLORIDE 145 ML IVPB ONE (13:30)
[2018-09-15 18:25] VITALS: TEMP 97.8
[2018-09-15 18:42] VITALS: BP 136/70; PULSE 93
[2018-09-15] MEDS ORDERED: PORTA CATH FLUSH 10 ML IVPUSH ONE (18:45)
== END 2018-09-15 16:15 | disposition home or self-care (01) ==
LOC: JONCCHEMO 07:19 → J7W 13:12 → JONCCHEMO 16:15
PROVIDERS: ATTEND Internal Medicine Hematology & Oncology
DX: Z51.11 Encounter for antineoplastic chemotherapy (principal); C16.9 Malignant neoplasm of stomach, unspecified
CPT/HCPCS: 36415; 80053; 80076; 82378; 83735; 85025; 96367; 96375; 96413; 96415; 96417; J1453; J2469; J9206

== ENCOUNTER 2018-09-17 07:15 | Day surgery (SDC) | payer OTHER ==
[2018-09-17 15:47] VITALS: BP 108/59; PULSE 67; TEMP 97.9
== END 2018-09-17 14:30 | disposition home or self-care (01) ==
LOC: JONCCHEMO 07:15
PROVIDERS: ATTEND Internal Medicine Hematology & Oncology

== ENCOUNTER 2018-10-06 10:38 | Emergency (ER) | payer OTHER ==
[2018-10-06 11:17] VITALS: TEMP 97.7; BMI 33.3
[2018-10-06] MEDS ORDERED: SODIUM CHLORIDE 1,000 ML IV STA (11:57)
[2018-10-06] MEDS ORDERED: methylPREDNISolone NA SUCC 125 MG/2 ML VIAL IVPUSH ONE (11:57)
[2018-10-06] MEDS ORDERED: FAMOTIDINE 20 MG/50 ML IVPB 20 MG/50 ML MG IVPB ONE ×2 (11:58→12:05)
--- NOTE | 2018-10-06 11:58 | PDOC ---
*Physical Exam - Vital Signs Last Vital Signs Temp Pulse Resp BP Pulse Ox 97.7 F 115 H 18 148/85 99 10/06/18 10:59 10/06/18 10:59 10/06/18 11:00 10/06/18 10:59 10/06/18 11:00 - Physical Exam Comments: 10/06/18 11:57 The patient was examined by [LUIS Rosa] under my direct supervision. I personally evaluated the patient. I concur with the above findings and the plan of care. ED Treatment Course - LABORATORY CBC & Chemistry Diagram: 10/06/18 12:18 10/06/18 12:18 *DC/Admit/Observation/Transfer Diagnosis at time of Disposition: Hives, Weakness - Discharge Dispostion Disposition: HOME Condition at time of disposition: Improved - Referrals Referrals: Charlene Echevarria MD [Primary Care Provider] - - Patient Instructions Printed Discharge Instructions: Hives Additional Instructions: The cause of your hives is unclear at this time. If they return and/or you develop any difficulty breathing, please return to the ER as discussed today. Your labs were normal and showed no sign of infections today. Continue to hydrate yourself at home and follow up tomorrow for your next chemotherapy treatment that is scheduled at 10 AM - Post Discharge Activity
--- NOTE | 2018-10-06 12:01 | PDOC ---
History of Present Illness - General Chief Complaint: Weakness Stated Complaint: WEAKNESS Time Seen by Provider: 10/06/18 11:45 History Source: Patient, Spouse - History of Present Illness Timing/Duration: other (this am) Past History - Past Medical History Allergies/Adverse Reactions: Allergies Allergy/AdvReac Type Severity Reaction Status Date / Time Penicillins AdvReac Unknown "happened Verified 10/06/18 11:08 as a child-?reaction" Home Medications: Ambulatory Orders Amlodipine Besylate [Norvasc -] 10 mg PO DAILY 03/31/17 Atorvastatin Ca [Lipitor] 10 mg PO HS 03/31/17 Esomeprazole Mag Trihydrate [NexIUM for SUSP] 40 mg PO DAILY 03/31/17 Levothyroxine [Synthroid -] 25 mcg PO DAILY 03/31/17 Pyridoxine HCl (B-6) [Vitamin B6] 100 mg PO DAILY 03/24/18 Nystatin Oral Suspension - [Nystatin Oral Susp 095860 Units/5 ML -] 5 ml PO QID #140 ml 04/16/18 Anemia: No Asthma: No Cancer: Yes (duodenal-receiving chemo, adenocarcimoma) Cardiac Disorders: No CVA: No COPD: No CHF: No Dementia: No Diabetes: No GI Disorders: No Disorders: No HTN: Yes Hypercholesterolemia: Yes Liver Disease: No Seizures: No Thyroid Disease: Yes - Suicide/Smoking/Psychosocial Hx Smoking History: Never smoked Hx Alcohol Use: No Drug/Substance Use Hx: No Substance Use Type: None Review of Systems - Review of Systems Constitutional: Yes: Weakness. No: Chills, Fever Respiratory: No: Cough, Shortness of Breath Cardiac (ROS): No: Chest Pain, Palpitations, Syncope ABD/GI: No: Blood Streaked Bowels, Constipated, Diarrhea, Nausea, Rectal Bleeding, Vomiting, Abdominal cramping : No: Dysuria, Flank Pain, Hematuria Integumentary: Yes: Pruritus, Rash Neurological: No: Headache, Tingling *Physical Exam - Vital Signs Last Vital Signs Temp Pulse Resp BP Pulse Ox 97.7 F 115 H 18 148/85 99 10/06/18 10:59 10/06/18 10:59 10/06/18 11:00 10/06/18 10:59 10/06/18 11:00 - Physical Exam Comments: 10/06/18 13:52 appears chronically ill, currently scratching skin in ED General Appearance: Yes: Appropriately Dressed, Moderate Distress HEENT: positive: Normal Voice Neck: positive: Supple Respiratory/Chest: positive: Lungs Clear, Normal Breath Sounds. negative: Respiratory Distress Cardiovascular: positive: S1, S2, Tachycardia Gastrointestinal/Abdominal: positive: Normal Bowel Sounds, Soft. negative: Tender, Distended, Guarding, Rebound Musculoskeletal: negative: CVA Tenderness Integumentary: positive: Dry, Warm, Rash (numerous erythematous papules of varying sizes, c/w hives to face/neck/trunk and UE/LE b/l) Neurologic: positive: Fully Oriented, Alert, Normal Mood/Affect ED Treatment Course - LABORATORY CBC & Chemistry Diagram: 10/06/18 12:18 10/06/18 12:18 Medical Decision Making - Medical Decision Making 10/06/18 11:58 73-year-old female, h/o HTN, stage IV duodenal cancer, currently on chemotherapy and follows up with Dr. Johnson of oncology, brought in by for multiple complaints today including generalized pruritic rash that patient awoke with this am. Denies new meds or other obvious inciting factors. No sob, lip/tongue swelling. States patient has had similar episodes twice in the past of unclear etiology. Patient also complaining of profound weakness this a.m. said when he took her blood pressure, it was 60s over 40s. Patient denies any chest pain, shortness of breath, palpitations, leg pain or swelling. No abdominal pain, nausea, vomiting, change in bowel movements, dysuria, cough , fever or chills See exam Hives Recurrent Unclear etiology No obvious inciting factors No angioedema -benadryl/pepcid/steroids -reassess Generalized weakness Documented hypotension at home this am per No focal symptoms at this time Possible dehydration given stage 4 GI cancer, doubt PE given no CP or SOB, r/o infxn -IVF -labs -reassess 10/06/18 14:26 Case d/w Dr Johnson who states that if labs are normal, would like pt to be discharged upstairs as due for chemo today. would like to be contacted at [phone] w/ dispo 10/06/18 15:09 CXR and labs unremarkable as reviewed by myself and ED attg. Repeat vitals improved. On reassessment, patient reports resolution of itching and appears much more comfortable now. As per discussion with Dr. Johnson, will discharge so that pt can go upstairs to get her chemotherapy which is scheduled today. Will contact Dr. Johnson w/ KIMBERLY results 10/06/18 15:[address] Johnson, will hold off on doing chemotherapy today. Per M.D. patient can return at 10 AM in the morning for her next chemotherapy treatment. States if urine negative, patient can be discharged *DC/Admit/Observation/Transfer Diagnosis at time of Disposition: Hives, Weakness - Discharge Dispostion Disposition: HOME Condition at time of disposition: Improved - Referrals Referrals: Charlene Echevarria MD [Primary Care Provider] - - Patient Instructions Printed Discharge Instructions: Hives Additional Instructions: The cause of your hives is unclear at this time. If they return and/or you develop any difficulty breathing, please return to the ER as discussed today. Your labs were normal and showed no sign of infections today. Continue to hydrate yourself at home and follow up tomorrow for your next chemotherapy treatment that is scheduled at 10 AM - Post Discharge Activity
[2018-10-06] MEDS ORDERED: methylPREDNISolone NA SUCC 125 MG/2 ML VIAL ONE (12:05)
[2018-10-06 12:34] LABS: BASO % 0.1 % (0-2.0); EOS % 0.1 % (0-4.5); HEMATOCRIT 37.7 % (32.4-45.2); HEMOGLOBIN 11.8 GM/dL (10.7-15.3); LYMPH % 18.4 % (8-40); MCH 22.9 pg (25.7-33.7); MCHC 31.2 g/dl (32.0-36.0); MEAN CELL VOLUME 73.5 fl (80-96); MEAN PLT VOLUME 6.3 fl (7.5-11.1); MONO % 4.3 % (3.8-10.2); NEUT % 77.1 % (42.8-82.8); PLATELET COUNT 479 K/MM3 (134-434); RBC 5.12 M/mm3 (3.60-5.2); RDW 18.8 % (11.6-15.6)
[2018-10-06 13:03] LABS: ALBUMIN 3.3 g/dl (3.4-5.0); ALK PHOS 103 U/L (45-117); ANION GAP 9 MMOL/L (8-16); BILIRUBIN,TOTAL 0.4 mg/dL (0.2-1); BLOOD UREA NITROGEN 24 mg/dL (7-18); CALCIUM 8.7 mg/dL (8.5-10.1); CHLORIDE 100 mmol/L (98-107); CO2 24 mmol/L (21-32); CREATININE 1.2 mg/dL (0.55-1.3); GLUCOSE,RANDOM 113 mg/dL (74-106); POTASSIUM 4.9 mmol/L (3.5-5.1); SGOT/AST 17 U/L (15-37); SGPT/ALT 18 U/L (13-61); SODIUM 133 mmol/L (136-145); TOT PROT 6.4 g/dl (6.4-8.2)
[2018-10-06] MEDS ORDERED: SODIUM CHLORIDE 500 ML IV STA (13:48)
[2018-10-06 14:58] VITALS: BP 124/73; PULSE 100
[2018-10-06 15:10] LABS: PH,URINE 6.5 (5.0-8.0); URINE APPEARANCE CLEAR; URINE BILIRUBIN NEGATIVE (NEGATIVE); URINE COLOR YELLOW; URINE GLUCOSE (UA) NEGATIVE (NEGATIVE); URINE KETONE NEGATIVE (NEGATIVE); URINE LEUK ESTERASE NEGATIVE (NEGATIVE); URINE NITRITE NEGATIVE (NEGATIVE); URINE PROTEIN NEGATIVE (NEGATIVE); URINE UROBILINOGEN 0.2 mg/dL (0.2-1.0)
--- NOTE | 2018-10-07 11:48 | EKG ---
Test Reason : Blood Pressure : / mmHG Vent. Rate : 115 BPM Atrial Rate : 115 BPM P-R Int : 148 ms QRS Dur : 058 ms QT Int : 336 ms P-R-T Axes : 054 004 046 degrees QTc Int : 464 ms POOR DATA QUALITY, INTERPRETATION MAY BE ADVERSELY AFFECTED SINUS TACHYCARDIA RIGHT ATRIAL ENLARGEMENT LOW VOLTAGE QRS ST ELEVATION, CONSIDER EARLY REPOLARIZATION, PERICARDITIS, OR INJURY ABNORMAL ECG WHEN COMPARED WITH ECG OF 16-APR-2018 15:35, VENT. RATE HAS INCREASED BY 39 BPM Confirmed by SHELLY DURON MD ([id number]) on 10/07/2018 11:47:59 AM Referred By: Confirmed By:SHELLY DURON MD
--- NOTE | 2018-10-07 15:17 | EKG ---
Test Reason : Blood Pressure : / mmHG Vent. Rate : 102 BPM Atrial Rate : 102 BPM P-R Int : 148 ms QRS Dur : 060 ms QT Int : 336 ms P-R-T Axes : 050 -10 031 degrees QTc Int : 437 ms POOR DATA QUALITY, INTERPRETATION MAY BE ADVERSELY AFFECTED SINUS TACHYCARDIA OTHERWISE NORMAL ECG WHEN COMPARED WITH ECG OF 06-OCT-2018 10:44, NO SIGNIFICANT CHANGE WAS FOUND Confirmed by OLIVERIO TIDWELL, SHELLY ([id number]) on 10/07/2018 3:16:28 PM Referred By: Confirmed By:SHELLY DURON MD
== END 2018-10-06 16:25 | disposition home or self-care (01) ==
LOC: JER 10:38
PROC: 3E033GC Introduction of Other Therapeutic Substance into Peripheral Vein, Percutaneous Approach (ICD-10-PCS; principal; 2018-10-06)
PROC: 3E0337Z Introduction of Electrolytic and Water Balance Substance into Peripheral Vein, Percutaneous Approach (ICD-10-PCS; 2018-10-06)
DX: L50.9 Urticaria, unspecified (principal); R53.1 Weakness; I10 Essential (primary) hypertension; Z85.09 Personal history of malignant neoplasm of other digestive organs; Z92.21 Personal history of antineoplastic chemotherapy
CPT/HCPCS: 36415; 71045-TC-FY; 80053; 81003; 82550; 84484; 85025; 93005; 93010; 96361; 96365; 96375; 99284-25; J7030

== ENCOUNTER 2018-10-07 07:39 | Day surgery (SDC) | payer OTHER ==
[~2018-10-07 07:39] MED LIST changes: +ATROPINE SO4 0.4 MG/1 ML VIAL IVPUSH ONE; -ATROPINE SULFATE 1 MG/10 ML DISP.SYRIN IVPUSH ONE; +BEVACIZUMAB IV ONE; -DEXTROSE 5% IVPB ONE; -FLUOROURACIL CP ONE; -LEUCOVORIN IVPB ONE; -SODIUM CHLORIDE CP ONE; +SODIUM CHLORIDE IV ONE; -WATER IVPB ONE
[2018-10-07] MEDS ORDERED: BEVACIZUMAB IV ONE (09:15)
[2018-10-07] MEDS ORDERED: PALONOSETRON HCL 0.25 MG/5 ML VIAL IVPUSH ONE (09:15)
[2018-10-07] MEDS ORDERED: DEXAMETHASONE SODIUM PHOSPHATE 10 MG in SODIUM CHLORIDE 50 ML IVPB ONE (09:15)
[2018-10-07] MEDS ORDERED: ATROPINE SO4 0.4 MG/1 ML VIAL IVPUSH ONE (09:15)
[2018-10-07] MEDS ORDERED: SODIUM CHLORIDE IV ONE (09:15)
[2018-10-07] MEDS ORDERED: IRINOTECAN HCL 240 MG in DEXTROSE 5%-WATER - 500 ML IVPB ONE (09:15)
[2018-10-07] MEDS ORDERED: DEXAMETHASONE SOD PHOSPHATE 20 MG/5 ML VIAL IVPB ONE (11:52)
[2018-10-07] MEDS ORDERED: RANITIDINE HCL 50 MG/2 ML VIAL IVPB ONE (14:00)
[2018-10-07] MEDS ORDERED: DEXAMETHASONE SOD PHOSPHATE 4 MG/1 ML VIAL IVPB ONE (14:15)
[2018-10-07] MEDS ORDERED: PORTA CATH FLUSH 10 ML IVPUSH ONE (14:53)
[2018-10-07 14:55] VITALS: BP 132/73; PULSE 93; TEMP 97.9
== END 2018-10-07 13:10 | disposition home or self-care (01) ==
LOC: JONCCHEMO 07:39 → J7W 12:11 → JONCCHEMO 13:10
PROVIDERS: ATTEND Internal Medicine Hematology & Oncology
PROC: 3E043GC Introduction of Other Therapeutic Substance into Central Vein, Percutaneous Approach (ICD-10-PCS; principal; 2018-10-07)
DX: C16.9 Malignant neoplasm of stomach, unspecified (principal); Z76.89 Persons encountering health services in other specified circumstances
CPT/HCPCS: 96365; 96367; 96375

== ENCOUNTER 2018-10-14 07:11 | Day surgery (SDC) | payer OTHER ==
[2018-10-14] MEDS ORDERED: DEXAMETHASONE SODIUM PHOSPHATE 10 MG in SODIUM CHLORIDE 50 ML IVPB ONE (10:00)
[2018-10-14] MEDS ORDERED: PALONOSETRON HCL 0.25 MG/5 ML VIAL IVPUSH ONE (10:00)
[2018-10-14] MEDS ORDERED: ATROPINE SO4 0.4 MG/1 ML VIAL IVPUSH ONE (10:00)
[2018-10-14 10:51] LABS: BASO % 0.3 % (0-2.0); EOS % 0.6 % (0-4.5); HEMATOCRIT 33.9 % (32.4-45.2); HEMOGLOBIN 10.8 GM/dL (10.7-15.3); LYMPH % 13.4 % (8-40); MCH 23.2 pg (25.7-33.7); MCHC 31.7 g/dl (32.0-36.0); MEAN CELL VOLUME 73.1 fl (80-96); MEAN PLT VOLUME 6.1 fl (7.5-11.1); MONO % 5.5 % (3.8-10.2); NEUT % 80.2 % (42.8-82.8); PLATELET COUNT 507 K/MM3 (134-434); RBC 4.64 M/mm3 (3.60-5.2); RDW 19.3 % (11.6-15.6); WHITE BLOOD COUNT 22.3 K/mm3 (4.0-10.0)
[2018-10-14 11:15] LABS: ALBUMIN 3.2 g/dl (3.4-5.0); ALK PHOS 82 U/L (45-117); ANION GAP 9 MMOL/L (8-16); BILIRUBIN,TOTAL 0.2 mg/dL (0.2-1); BLOOD UREA NITROGEN 28 mg/dL (7-18); CALCIUM 8.6 mg/dL (8.5-10.1); CHLORIDE 98 mmol/L (98-107); CO2 28 mmol/L (21-32); CREATININE 1.1 mg/dL (0.55-1.3); GLUCOSE,RANDOM 165 mg/dL (74-106); POTASSIUM 5.1 mmol/L (3.5-5.1); SGOT/AST 10 U/L (15-37); SGPT/ALT 22 U/L (13-61); SODIUM 135 mmol/L (136-145); TOT PROT 6.5 g/dl (6.4-8.2)
[2018-10-14 11:19] LABS: ALBUMIN 3.2 g/dl (3.4-5.0); BILIRUBIN,DIRECT 0.1 mg/dL (0.0-0.2); BILIRUBIN,TOTAL 0.2 mg/dL (0.2-1); TOT PROT 6.5 g/dl (6.4-8.2)
[2018-10-14] MEDS ORDERED: IRINOTECAN HCL 240 MG in DEXTROSE 5%-WATER - 500 ML IVPB ONE (12:00)
[2018-10-14 12:09] LABS: ANISOCYTOSIS 1+; MACROCYTOSIS 0; OVALOCYTE 1+; PLATELET ESTIMATE INCREASED
[2018-10-14] MEDS: SODIUM CHLORIDE IV ONE ×2 (13:43→15:32)
[2018-10-14] MEDS: BEVACIZUMAB IV ONE ×2 (13:43→15:32)
[2018-10-14 18:17] VITALS: BP 139/69; PULSE 85
[2018-10-14] MEDS ORDERED: PORTA CATH FLUSH 10 ML IVPUSH ONE (18:17)
[2018-10-14 18:20] VITALS: TEMP 97.6
== END 2018-10-14 17:20 | disposition home or self-care (01) ==
LOC: JONCCHEMO 07:11 → J7W 12:21 → JONCCHEMO 17:20
PROVIDERS: ATTEND Internal Medicine Hematology & Oncology
DX: Z51.11 Encounter for antineoplastic chemotherapy (principal); C16.9 Malignant neoplasm of stomach, unspecified
CPT/HCPCS: 36415; 80053; 80076; 83735; 85025; 96367; 96375; 96413; 96415; 96417; J2469; J9035; J9206

== ENCOUNTER 2018-10-27 07:11 | Day surgery (SDC) | payer OTHER ==
[2018-10-27] MEDS ORDERED: ATROPINE SULFATE 1 MG/10 ML DISP.SYRIN IVPUSH ONE (08:00)
[2018-10-27] MEDS ORDERED: PALONOSETRON HCL 0.25 MG/5 ML VIAL IVPUSH ONE (08:00)
[2018-10-27] MEDS ORDERED: DEXAMETHASONE SODIUM PHOSPHATE 10 MG in SODIUM CHLORIDE 50 ML IVPB ONE (08:00)
[2018-10-27] MEDS ORDERED: BEVACIZUMAB IV ONE (08:30)
[2018-10-27] MEDS ORDERED: SODIUM CHLORIDE IV ONE (08:30)
[2018-10-27] MEDS ORDERED: IRINOTECAN HCL 240 MG in DEXTROSE 5%-WATER - 500 ML IVPB ONE (09:00)
[2018-10-27 11:11] LABS: BASO % 0.4 % (0-2.0); EOS % 4.2 % (0-4.5); HEMATOCRIT 32.6 % (32.4-45.2); HEMOGLOBIN 10.3 GM/dL (10.7-15.3); LYMPH % 21.6 % (8-40); MCH 23.3 pg (25.7-33.7); MCHC 31.6 g/dl (32.0-36.0); MEAN CELL VOLUME 73.7 fl (80-96); MEAN PLT VOLUME 6.3 fl (7.5-11.1); MONO % 6.6 % (3.8-10.2); NEUT % 67.2 % (42.8-82.8); PLATELET COUNT 336 K/MM3 (134-434); RBC 4.42 M/mm3 (3.60-5.2); RDW 19.8 % (11.6-15.6); WHITE BLOOD COUNT 7.2 K/mm3 (4.0-10.0)
[2018-10-27 11:36] LABS: ALBUMIN 3.2 g/dl (3.4-5.0); ALK PHOS 90 U/L (45-117); ANION GAP 8 MMOL/L (8-16); BILIRUBIN,DIRECT 0.1 mg/dL (0.0-0.2); BILIRUBIN,TOTAL 0.2 mg/dL (0.2-1); BLOOD UREA NITROGEN 17 mg/dL (7-18); CALCIUM 8.6 mg/dL (8.5-10.1); CHLORIDE 101 mmol/L (98-107); CO2 26 mmol/L (21-32); CREATININE 0.9 mg/dL (0.55-1.3); GLUCOSE,RANDOM 133 mg/dL (74-106); POTASSIUM 4.5 mmol/L (3.5-5.1); SGOT/AST 11 U/L (15-37); SGPT/ALT 21 U/L (13-61); SODIUM 135 mmol/L (136-145); TOT PROT 6.3 g/dl (6.4-8.2)
[2018-10-27 11:56] LABS: RATIO URIN PROTEIN/URIN CREAT 0.11 MG/DL
[2018-10-27 18:44] VITALS: BP 138/80; PULSE 88
[2018-10-27] MEDS ORDERED: PORTA CATH FLUSH 10 ML IVPUSH ONE (18:44)
[2018-10-27 18:48] VITALS: TEMP 98.2
== END 2018-10-27 16:30 | disposition home or self-care (01) ==
LOC: JONCCHEMO 07:11 → J7W 12:44 → JONCCHEMO 16:30
PROVIDERS: ATTEND Internal Medicine Hematology & Oncology
DX: Z51.11 Encounter for antineoplastic chemotherapy (principal); C16.9 Malignant neoplasm of stomach, unspecified
CPT/HCPCS: 36415; 80048; 80076; 82570; 83735; 84156; 85025; 96375; 96413; 96415; 96417; J2469; J9035; J9206

== ENCOUNTER 2018-11-17 07:15 | Day surgery (SDC) | payer OTHER ==
[2018-11-17] MEDS ORDERED: PALONOSETRON HCL 0.25 MG/5 ML VIAL IVPUSH ONE (08:00)
[2018-11-17] MEDS ORDERED: DEXAMETHASONE INJECTION 10 MG in SODIUM CHLORIDE 50 ML IVPB ONE (08:00)
[2018-11-17] MEDS ORDERED: SODIUM CHLORIDE IV ONE ×2 (08:30→14:15)
[2018-11-17] MEDS ORDERED: BEVACIZUMAB IV ONE ×2 (08:30→14:15)
[2018-11-17] MEDS ORDERED: ATROPINE SULFATE 1 MG/10 ML DISP.SYRIN IVPUSH ONE (09:30)
[2018-11-17] MEDS ORDERED: IRINOTECAN HCL 240 MG in DEXTROSE 5%-WATER - 500 ML IVPB ONE (10:00)
[2018-11-17 11:36] LABS: BASO % 0.6 % (0-2.0); EOS % 2.8 % (0-4.5); HEMATOCRIT 32.8 % (32.4-45.2); HEMOGLOBIN 10.2 GM/dL (10.7-15.3); MCH 23.2 pg (25.7-33.7); MCHC 31.1 g/dl (32.0-36.0); MEAN CELL VOLUME 74.6 fl (80-96); MEAN PLT VOLUME 6.2 fl (7.5-11.1); MONO % 9.6 % (3.8-10.2); PLATELET COUNT 536 K/MM3 (134-434); RDW 19.3 % (11.6-15.6); WHITE BLOOD COUNT 8.5 K/mm3 (4.0-10.0)
[2018-11-17 12:08] LABS: ALBUMIN 3.1 g/dl (3.4-5.0); BILIRUBIN,DIRECT 0.1 mg/dL (0.0-0.2); BILIRUBIN,TOTAL 0.2 mg/dL (0.2-1); CALCIUM 8.8 mg/dL (8.5-10.1); MAGNESIUM 2.1 mg/dL (1.8-2.4); POTASSIUM 4.6 mmol/L (3.5-5.1); TOT PROT 6.8 g/dl (6.4-8.2)
[2018-11-17 13:10] LABS: RATIO URIN PROTEIN/URIN CREAT 0.11 MG/DL
[2018-11-17 17:06] VITALS: TEMP 98.1
[2018-11-17 17:19] VITALS: BP 145/77; PULSE 99
[2018-11-17] MEDS ORDERED: PORTA CATH FLUSH 10 ML IVPUSH ONE (17:19)
== END 2018-11-17 17:15 | disposition home or self-care (01) ==
LOC: JONCCHEMO 07:15 → J7W 13:17 → JONCCHEMO 17:15
PROVIDERS: ATTEND Internal Medicine Hematology & Oncology
DX: Z51.11 Encounter for antineoplastic chemotherapy (principal); C16.9 Malignant neoplasm of stomach, unspecified
CPT/HCPCS: 36415; 80048; 80076; 82378; 82570; 83735; 84156; 85025; 96375; 96413; 96415; 96417; J1100; J2469; J9035; J9206

== ENCOUNTER 2018-12-01 07:28 | Day surgery (SDC) | payer OTHER ==
[2018-12-01] MEDS ORDERED: DEXAMETHASONE SODIUM PHOSPHATE 10 MG in SODIUM CHLORIDE 50 ML IVPB ONE (10:00)
[2018-12-01] MEDS ORDERED: ATROPINE SO4 0.4 MG/1 ML VIAL IVPUSH ONE (10:00)
[2018-12-01] MEDS ORDERED: PALONOSETRON HCL 0.25 MG/5 ML VIAL IVPUSH ONE (10:00)
[2018-12-01] MEDS ORDERED: IRINOTECAN HCL 240 MG in DEXTROSE 5%-WATER - 500 ML IVPB ONE (10:30)
[2018-12-01 11:23] LABS: BASO % 0.4 % (0-2.0); EOS % 4.2 % (0-4.5); HEMATOCRIT 34.7 % (32.4-45.2); HEMOGLOBIN 10.8 GM/dL (10.7-15.3); LYMPH % 28.6 % (8-40); MCH 23.1 pg (25.7-33.7); MEAN CELL VOLUME 74.3 fl (80-96); MEAN PLT VOLUME 6.6 fl (7.5-11.1); MONO % 8.9 % (3.8-10.2); NEUT % 57.9 % (42.8-82.8); PLATELET COUNT 363 K/MM3 (134-434); RBC 4.67 M/mm3 (3.60-5.2); WHITE BLOOD COUNT 6.5 K/mm3 (4.0-10.0)
[2018-12-01 11:42] LABS: ALBUMIN 3.4 g/dl (3.4-5.0); BILIRUBIN,TOTAL 0.4 mg/dL (0.2-1); CALCIUM 8.8 mg/dL (8.5-10.1); CREATININE 0.9 mg/dL (0.55-1.3); MAGNESIUM 2.1 mg/dL (1.8-2.4); POTASSIUM 4.3 mmol/L (3.5-5.1)
[2018-12-01 17:14] VITALS: TEMP 98.1
[2018-12-01] MEDS ORDERED: PORTA CATH FLUSH 10 ML IVPUSH ONE (17:14)
[2018-12-01 17:15] VITALS: BP 127/73; PULSE 87
== END 2018-12-01 16:33 | disposition home or self-care (01) ==
LOC: JONCCHEMO 07:28 → J7W 13:06 → JONCCHEMO 16:33
PROVIDERS: ATTEND Internal Medicine Hematology & Oncology
DX: Z51.11 Encounter for antineoplastic chemotherapy (principal); C16.9 Malignant neoplasm of stomach, unspecified
CPT/HCPCS: 36415; 80053; 82378; 83735; 85025; 96375; 96413; 96415; J2469; J9206

== ENCOUNTER 2018-12-29 07:19 | Day surgery (SDC) | payer OTHER ==
[2018-12-29] MEDS ORDERED: PALONOSETRON HCL 0.25 MG/5 ML VIAL IVPUSH ONE (09:00)
[2018-12-29] MEDS ORDERED: ATROPINE SULFATE 1 MG/10 ML DISP.SYRIN IVPUSH ONE ×2 (09:00→16:45)
[2018-12-29] MEDS ORDERED: DEXAMETHASONE SODIUM PHOSPHATE 10 MG in SODIUM CHLORIDE 50 ML IVPB ONE (09:00)
[2018-12-29] MEDS ORDERED: IRINOTECAN HCL 240 MG in DEXTROSE 5%-WATER - 500 ML IVPB ONE (09:30)
[2018-12-29] MEDS ORDERED: SODIUM CHLORIDE 500 ML IV STA (11:58)
[2018-12-29] MEDS ORDERED: FOSAPREPITANT DIMEGLUMINE 150 MG in SODIUM CHLORIDE 145 ML IVPB ONE (13:00)
[2018-12-29] MEDS ORDERED: ALTEPLASE 2 MG VIAL ONE (13:52)
[2018-12-29] MEDS ORDERED: ALTEPLASE 2 MG VIAL CVP ONE (14:00)
[2018-12-29 15:53] LABS: BASO % 0.6 % (0-2.0); EOS % 2.4 % (0-4.5); HEMATOCRIT 30.1 % (32.4-45.2); HEMOGLOBIN 9.7 GM/dL (10.7-15.3); LYMPH % 23.4 % (8-40); MCH 24.3 pg (25.7-33.7); MCHC 32.3 g/dl (32.0-36.0); MEAN CELL VOLUME 75.2 fl (80-96); MEAN PLT VOLUME 6.3 fl (7.5-11.1); MONO % 7.1 % (3.8-10.2); NEUT % 66.5 % (42.8-82.8); PLATELET COUNT 414 K/MM3 (134-434); RBC 4.01 M/mm3 (3.60-5.2); RDW 21.5 % (11.6-15.6); WHITE BLOOD COUNT 10.1 K/mm3 (4.0-10.0)
[2018-12-29 16:20] LABS: ALBUMIN 3.4 g/dl (3.4-5.0); BILIRUBIN,TOTAL 0.3 mg/dL (0.2-1); BLOOD UREA NITROGEN 15.4 mg/dL (7-18); CALCIUM 8.5 mg/dL (8.5-10.1); CREATININE 0.7 mg/dL (0.55-1.3); MAGNESIUM 2.4 mg/dL (1.8-2.4); POTASSIUM 3.7 mmol/L (3.5-5.1); TOT PROT 6.6 g/dl (6.4-8.2)
[2018-12-29 17:00] LABS: ANISOCYTOSIS 1+; PLATELET ESTIMATE ADEQUATE
[2018-12-29 18:57] VITALS: BP 150/82; PULSE 95
[2018-12-29] MEDS ORDERED: PORTA CATH FLUSH 10 ML IVPUSH ONE ×2 (18:57→19:05)
[2018-12-29 19:03] VITALS: TEMP 98
== END 2018-12-29 19:14 | disposition home or self-care (01) ==
LOC: JONCCHEMO 07:19 → J7W 12:42 → JONCCHEMO 19:14
PROVIDERS: ATTEND Internal Medicine Hematology & Oncology
PROC: 3E04305 Introduction of Other Antineoplastic into Central Vein, Percutaneous Approach (ICD-10-PCS; principal; 2018-12-29)
PROC: 3E043GC Introduction of Other Therapeutic Substance into Central Vein, Percutaneous Approach (ICD-10-PCS; 2018-12-29)
PROC: 3E0437Z Introduction of Electrolytic and Water Balance Substance into Central Vein, Percutaneous Approach (ICD-10-PCS; 2018-12-29)
DX: Z51.11 Encounter for antineoplastic chemotherapy (principal); C17.0 Malignant neoplasm of duodenum; I10 Essential (primary) hypertension; E78.00 Pure hypercholesterolemia, unspecified
CPT/HCPCS: 36415; 80053; 80076; 83735; 85025; 96361; 96367; 96375; 96413; 96415; J1453; J2469; J2997; J9206

== ENCOUNTER 2019-01-12 07:16 | Day surgery (SDC) | payer OTHER ==
[2019-01-12] MEDS ORDERED: ATROPINE SULFATE 1 MG/10 ML DISP.SYRIN IVPUSH ONE (09:00)
[2019-01-12] MEDS ORDERED: PALONOSETRON HCL 0.25 MG/5 ML VIAL IVPUSH ONE (09:00)
[2019-01-12] MEDS ORDERED: DEXAMETHASONE SODIUM PHOSPHATE 10 MG in SODIUM CHLORIDE 50 ML IVPB ONE (09:00)
[2019-01-12] MEDS ORDERED: IRINOTECAN HCL 240 MG in DEXTROSE 5%-WATER - 500 ML IVPB ONE (09:30)
[2019-01-12 11:40] LABS: BASO % 0.6 % (0-2.0); EOS % 3.4 % (0-4.5); HEMATOCRIT 31.1 % (32.4-45.2); HEMOGLOBIN 9.7 GM/dL (10.7-15.3); LYMPH % 29.5 % (8-40); MCH 23.6 pg (25.7-33.7); MCHC 31.2 g/dl (32.0-36.0); MEAN CELL VOLUME 75.7 fl (80-96); MEAN PLT VOLUME 6.6 fl (7.5-11.1); MONO % 7.4 % (3.8-10.2); NEUT % 59.1 % (42.8-82.8); PLATELET COUNT 388 K/MM3 (134-434); RBC 4.11 M/mm3 (3.60-5.2); WHITE BLOOD COUNT 6.1 K/mm3 (4.0-10.0)
[2019-01-12 11:55] LABS: ALBUMIN 3.2 g/dl (3.4-5.0); BILIRUBIN,DIRECT 0.1 mg/dL (0.0-0.2); BILIRUBIN,TOTAL 0.2 mg/dL (0.2-1); BLOOD UREA NITROGEN 16.6 mg/dL (7-18); CALCIUM 8.5 mg/dL (8.5-10.1); CREATININE 0.9 mg/dL (0.55-1.3); MAGNESIUM 2.1 mg/dL (1.8-2.4); POTASSIUM 4.5 mmol/L (3.5-5.1); TOT PROT 6.2 g/dl (6.4-8.2)
[2019-01-12 12:27] LABS: ANISOCYTOSIS 1+; MACROCYTOSIS 0; PLATELET ESTIMATE NORMAL; ROULEAU 1+
[2019-01-12] MEDS ORDERED: FOSAPREPITANT DIMEGLUMINE 150 MG in SODIUM CHLORIDE 145 ML IVPB ONE (16:30)
[2019-01-12 19:18] VITALS: BP 134/71; PULSE 60; TEMP 98.3
[2019-01-12] MEDS ORDERED: PORTA CATH FLUSH 10 ML IVPUSH ONE (19:18)
== END 2019-01-12 15:45 | disposition home or self-care (01) ==
LOC: JONCCHEMO 07:16 → J7W 12:34 → JONCCHEMO 15:45
PROVIDERS: ATTEND Internal Medicine Hematology & Oncology
DX: Z51.11 Encounter for antineoplastic chemotherapy (principal); C17.0 Malignant neoplasm of duodenum; I10 Essential (primary) hypertension; E78.00 Pure hypercholesterolemia, unspecified
CPT/HCPCS: 36415; 80048; 80076; 82378; 83735; 85025; 96367; 96375; 96413; 96415; J1453; J2469; J9206

== ENCOUNTER 2019-02-02 07:21 | Day surgery (SDC) | payer OTHER ==
[2019-02-02] MEDS ORDERED: DEXAMETHASONE SODIUM PHOSPHATE 10 MG in SODIUM CHLORIDE 50 ML IVPB ONE (10:00)
[2019-02-02] MEDS ORDERED: PALONOSETRON HCL 0.25 MG/5 ML VIAL IVPUSH ONE (10:00)
[2019-02-02] MEDS ORDERED: ATROPINE SO4 0.4 MG/1 ML VIAL IVPUSH ONE (10:00)
[2019-02-02] MEDS ORDERED: FOSAPREPITANT DIMEGLUMINE 150 MG in SODIUM CHLORIDE 150 ML IVPB ONE (10:00)
[2019-02-02] MEDS ORDERED: SODIUM CHLORIDE IV ONE (10:30)
[2019-02-02] MEDS ORDERED: BEVACIZUMAB IV ONE (10:30)
[2019-02-02 10:43] LABS: BASO % 0.5 % (0-2.0); EOS % 2.7 % (0-4.5); HEMATOCRIT 31.5 % (32.4-45.2); HEMOGLOBIN 10.1 GM/dL (10.7-15.3); LYMPH % 23.4 % (8-40); MCH 24.2 pg (25.7-33.7); MEAN CELL VOLUME 75.7 fl (80-96); MEAN PLT VOLUME 6.1 fl (7.5-11.1); MONO % 7.7 % (3.8-10.2); NEUT % 65.7 % (42.8-82.8); PLATELET COUNT 404 K/MM3 (134-434); RBC 4.16 M/mm3 (3.60-5.2); RDW 20.4 % (11.6-15.6); WHITE BLOOD COUNT 7.8 K/mm3 (4.0-10.0)
[2019-02-02 11:10] LABS: ALBUMIN 3.4 g/dl (3.4-5.0); BILIRUBIN,DIRECT 0.1 mg/dL (0.0-0.2); BILIRUBIN,TOTAL 0.2 mg/dL (0.2-1); BLOOD UREA NITROGEN 19.8 mg/dL (7-18); CALCIUM 8.7 mg/dL (8.5-10.1); CREATININE 0.9 mg/dL (0.55-1.3); MAGNESIUM 2.2 mg/dL (1.8-2.4); POTASSIUM 3.9 mmol/L (3.5-5.1); TOT PROT 6.7 g/dl (6.4-8.2)
[2019-02-02] MEDS ORDERED: IRINOTECAN HCL 240 MG in DEXTROSE 5%-WATER - 500 ML IVPB ONE (12:00)
[2019-02-02 16:33] VITALS: TEMP 98
[2019-02-02 17:28] VITALS: BP 148/84; PULSE 94
== END 2019-02-02 17:37 | disposition home or self-care (01) ==
LOC: JONCCHEMO 07:21 → J7W 12:43 → JONCCHEMO 17:37
PROVIDERS: ATTEND Internal Medicine Hematology & Oncology
DX: Z51.11 Encounter for antineoplastic chemotherapy (principal); C17.0 Malignant neoplasm of duodenum
CPT/HCPCS: 36415; 80048; 80076; 82378; 83036; 83735; 85025; 96367; 96375; 96413; 96415; 96417; J1453; J2469; J9035; J9206

== ENCOUNTER 2019-02-16 07:20 | Day surgery (SDC) | payer OTHER ==
[2019-02-16] MEDS ORDERED: ATROPINE SULFATE 1 MG/10 ML DISP.SYRIN IVPUSH ONE (09:30)
[2019-02-16] MEDS ORDERED: PALONOSETRON HCL 0.25 MG/5 ML VIAL IVPUSH ONE (09:30)
[2019-02-16] MEDS ORDERED: FOSAPREPITANT DIMEGLUMINE 150 MG in SODIUM CHLORIDE 145 ML IVPB ONE (09:30)
[2019-02-16] MEDS ORDERED: DEXAMETHASONE SODIUM PHOSPHATE 10 MG in SODIUM CHLORIDE 50 ML IVPB ONE (09:30)
[2019-02-16] MEDS ORDERED: IRINOTECAN HCL 240 MG in DEXTROSE 5%-WATER - 500 ML IVPB ONE (10:00)
[2019-02-16] MEDS ORDERED: SODIUM CHLORIDE IV ONE (11:30)
[2019-02-16] MEDS ORDERED: BEVACIZUMAB IV ONE (11:30)
[2019-02-16 11:49] LABS: BASO % 0.8 % (0-2.0); EOS % 2.4 % (0-4.5); HEMATOCRIT 31.7 % (32.4-45.2); HEMOGLOBIN 10.1 GM/dL (10.7-15.3); MCH 24.3 pg (25.7-33.7); MEAN CELL VOLUME 75.8 fl (80-96); MEAN PLT VOLUME 6.5 fl (7.5-11.1); MONO % 8.4 % (3.8-10.2); NEUT % 63.4 % (42.8-82.8); PLATELET COUNT 373 K/MM3 (134-434); RBC 4.18 M/mm3 (3.60-5.2); RDW 19.4 % (11.6-15.6); WHITE BLOOD COUNT 8.1 K/mm3 (4.0-10.0)
[2019-02-16 12:19] LABS: ALBUMIN 3.3 g/dl (3.4-5.0); ALK PHOS 85 U/L (45-117); ANION GAP 7 MMOL/L (8-16); BILIRUBIN,DIRECT < 0.1 mg/dL (0.0-0.2); BILIRUBIN,TOTAL 0.2 mg/dL (0.2-1); BLOOD UREA NITROGEN 16.8 mg/dL (7-18); CHLORIDE 105 mmol/L (98-107); CO2 27 mmol/L (21-32); CREATININE 0.8 mg/dL (0.55-1.3); GLUCOSE,RANDOM 106 mg/dL (74-106); MAGNESIUM 2.2 mg/dL (1.8-2.4); POTASSIUM 4.2 mmol/L (3.5-5.1); SGOT/AST 12 U/L (15-37); SGPT/ALT 18 U/L (13-61); SODIUM 139 mmol/L (136-145); TOT PROT 6.5 g/dl (6.4-8.2)
[2019-02-16 12:21] LABS: CHOLESTEROL 178 mg/dL (50-200); HDL CHOLESTEROL 44 mg/dL (40-60); TRIGLYCERIDES 206 mg/dL (0-150)
[2019-02-16 16:06] VITALS: BP 137/80; PULSE 84; TEMP 97.8
[2019-02-16] MEDS ORDERED: PORTA CATH FLUSH 10 ML IVPUSH ONE (16:06)
== END 2019-02-16 16:46 | disposition home or self-care (01) ==
LOC: JONCCHEMO 07:20 → J7W 12:35 → JONCCHEMO 16:46
PROVIDERS: ATTEND Internal Medicine Hematology & Oncology
DX: Z51.11 Encounter for antineoplastic chemotherapy (principal); C17.0 Malignant neoplasm of duodenum
CPT/HCPCS: 36415; 80048; 80061; 80076; 83721; 83735; 85025; 96367; 96375; 96413; 96415; 96417; J1453; J2469; J9035; J9206

== ENCOUNTER 2019-03-02 06:54 | Day surgery (SDC) | payer OTHER ==
[2019-03-02] MEDS ORDERED: FOSAPREPITANT DIMEGLUMINE 150 MG in SODIUM CHLORIDE 145 ML IVPB ONE (09:30)
[2019-03-02] MEDS ORDERED: ATROPINE SULFATE 1 MG/10 ML DISP.SYRIN IVPUSH ONE (09:30)
[2019-03-02] MEDS ORDERED: DEXAMETHASONE SODIUM PHOSPHATE 10 MG in SODIUM CHLORIDE 50 ML IVPB ONE (09:30)
[2019-03-02] MEDS ORDERED: PALONOSETRON HCL 0.25 MG/5 ML VIAL IVPUSH ONE (09:30)
[2019-03-02] MEDS ORDERED: IRINOTECAN HCL 240 MG in DEXTROSE 5%-WATER - 500 ML IVPB ONE (10:00)
[2019-03-02 10:59] LABS: BASO % 0.4 % (0-2.0); EOS % 3.5 % (0-4.5); HEMOGLOBIN 9.7 GM/dL (10.7-15.3); LYMPH % 30.2 % (8-40); MCH 23.7 pg (25.7-33.7); MCHC 31.1 g/dl (32.0-36.0); MEAN PLT VOLUME 6.3 fl (7.5-11.1); MONO % 8.8 % (3.8-10.2); NEUT % 57.1 % (42.8-82.8); PLATELET COUNT 380 K/MM3 (134-434); RBC 4.08 M/mm3 (3.60-5.2); RDW 19.8 % (11.6-15.6); WHITE BLOOD COUNT 6.3 K/mm3 (4.0-10.0)
[2019-03-02] MEDS ORDERED: SODIUM CHLORIDE IV ONE (11:30)
[2019-03-02] MEDS ORDERED: BEVACIZUMAB IV ONE (11:30)
[2019-03-02 11:31] LABS: ALBUMIN 3.3 g/dl (3.4-5.0); BILIRUBIN,DIRECT 0.1 mg/dL (0.0-0.2); BILIRUBIN,TOTAL 0.3 mg/dL (0.2-1); BLOOD UREA NITROGEN 15.2 mg/dL (7-18); CALCIUM 8.7 mg/dL (8.5-10.1); CREATININE 0.8 mg/dL (0.55-1.3); MAGNESIUM 2.2 mg/dL (1.8-2.4); POTASSIUM 4.3 mmol/L (3.5-5.1); TOT PROT 6.2 g/dl (6.4-8.2)
[2019-03-02 13:00] LABS: PH,URINE 6.5 (5.0-8.0); URINE APPEARANCE CLEAR; URINE BILIRUBIN NEGATIVE (NEGATIVE); URINE COLOR YELLOW; URINE GLUCOSE (UA) NEGATIVE (NEGATIVE); URINE KETONE NEGATIVE (NEGATIVE); URINE LEUK ESTERASE NEGATIVE (NEGATIVE); URINE NITRITE NEGATIVE (NEGATIVE); URINE PROTEIN NEGATIVE (NEGATIVE); URINE UROBILINOGEN 0.2 mg/dL (0.2-1.0)
[2019-03-02 18:05] VITALS: BP 148/72; PULSE 95; TEMP 98.6
[2019-03-02] MEDS ORDERED: PORTA CATH FLUSH 10 ML IVPUSH ONE (18:05)
== END 2019-03-02 17:20 | disposition home or self-care (01) ==
LOC: JONCCHEMO 06:54 → J7W 12:34 → JONCCHEMO 17:20
PROVIDERS: ATTEND Internal Medicine Hematology & Oncology
PROC: 3E04305 Introduction of Other Antineoplastic into Central Vein, Percutaneous Approach (ICD-10-PCS; principal; 2019-03-02)
PROC: 3E043GC Introduction of Other Therapeutic Substance into Central Vein, Percutaneous Approach (ICD-10-PCS; 2019-03-02)
DX: Z51.11 Encounter for antineoplastic chemotherapy (principal); C17.0 Malignant neoplasm of duodenum
CPT/HCPCS: 36415; 80048; 80076; 81003; 83735; 85025; 96367; 96375; 96413; 96415; 96417; J1453; J2469; J9035; J9206

== ENCOUNTER 2019-03-16 08:38 | Day surgery (SDC) | payer OTHER ==
[2019-03-16] MEDS ORDERED: FOSAPREPITANT DIMEGLUMINE 150 MG in SODIUM CHLORIDE 150 ML IVPB ONE (10:00)
[2019-03-16] MEDS ORDERED: DEXAMETHASONE SODIUM PHOSPHATE 10 MG in SODIUM CHLORIDE 50 ML IVPB ONE (10:00)
[2019-03-16] MEDS ORDERED: ATROPINE SO4 0.4 MG/1 ML VIAL IVPUSH ONE (10:00)
[2019-03-16] MEDS ORDERED: PALONOSETRON HCL 0.25 MG/5 ML VIAL IVPUSH ONE (10:00)
[2019-03-16] MEDS ORDERED: SODIUM CHLORIDE IV ONE (10:30)
[2019-03-16] MEDS ORDERED: BEVACIZUMAB IV ONE (10:30)
[2019-03-16 10:32] LABS: BASO % 0.4 % (0-2.0); EOS % 2.2 % (0-4.5); HEMOGLOBIN 9.9 GM/dL (10.7-15.3); LYMPH % 27.9 % (8-40); MCH 24.1 pg (25.7-33.7); MEAN CELL VOLUME 75.3 fl (80-96); NEUT % 60.5 % (42.8-82.8); PLATELET COUNT 353 K/MM3 (134-434); RBC 4.12 M/mm3 (3.60-5.2); RDW 20.2 % (11.6-15.6); WHITE BLOOD COUNT 6.9 K/mm3 (4.0-10.0)
[2019-03-16] MEDS ORDERED: IRINOTECAN HCL 240 MG in DEXTROSE 5%-WATER - 500 ML IVPB ONE (11:00)
[2019-03-16 11:02] LABS: ALBUMIN 3.3 g/dl (3.4-5.0); BILIRUBIN,DIRECT 0.1 mg/dL (0.0-0.2); BILIRUBIN,TOTAL 0.2 mg/dL (0.2-1); BLOOD UREA NITROGEN 15.8 mg/dL (7-18); CALCIUM 8.7 mg/dL (8.5-10.1); CREATININE 0.8 mg/dL (0.55-1.3); MAGNESIUM 2.2 mg/dL (1.8-2.4); POTASSIUM 4.6 mmol/L (3.5-5.1); TOT PROT 6.4 g/dl (6.4-8.2)
[2019-03-16 17:02] VITALS: BP 154/88; PULSE 85; TEMP 98.1
[2019-03-16] MEDS ORDERED: PORTA CATH FLUSH 10 ML IVPUSH ONE (17:12)
== END 2019-03-16 17:16 | disposition home or self-care (01) ==
LOC: JONCCHEMO 08:38 → J7W 12:15 → JONCCHEMO 17:16
PROVIDERS: ATTEND Internal Medicine Hematology & Oncology
PROC: 3E04305 Introduction of Other Antineoplastic into Central Vein, Percutaneous Approach (ICD-10-PCS; principal; 2019-03-16)
PROC: 3E043GC Introduction of Other Therapeutic Substance into Central Vein, Percutaneous Approach (ICD-10-PCS; 2019-03-16)
DX: Z51.11 Encounter for antineoplastic chemotherapy (principal); C17.0 Malignant neoplasm of duodenum; I10 Essential (primary) hypertension; E78.00 Pure hypercholesterolemia, unspecified
CPT/HCPCS: 36415; 80048; 80076; 82378; 83735; 85025; 96367; 96375; 96413; 96415; 96417; J1453; J2469; J9035; J9206

== ENCOUNTER 2019-03-30 05:42 | Day surgery (SDC) | payer OTHER ==
[2019-03-30] MEDS ORDERED: PALONOSETRON HCL 0.25 MG/5 ML VIAL IVPUSH ONE (10:00)
[2019-03-30] MEDS ORDERED: DEXAMETHASONE SODIUM PHOSPHATE 10 MG in SODIUM CHLORIDE 50 ML IVPB ONE (10:00)
[2019-03-30] MEDS ORDERED: FOSAPREPITANT DIMEGLUMINE 150 MG in SODIUM CHLORIDE 150 ML IVPB ONE (10:00)
[2019-03-30] MEDS ORDERED: ATROPINE SO4 0.4 MG/1 ML VIAL IVPUSH ONE (10:00)
[2019-03-30] MEDS ORDERED: SODIUM CHLORIDE IV ONE (10:30)
[2019-03-30] MEDS ORDERED: BEVACIZUMAB IV ONE (10:30)
[2019-03-30] MEDS ORDERED: IRINOTECAN HCL 240 MG in DEXTROSE 5%-WATER - 500 ML IVPB ONE (11:00)
[2019-03-30 12:41] LABS: BASO % 0.3 % (0-2.0); EOS % 1.7 % (0-4.5); HEMATOCRIT 32.3 % (32.4-45.2); HEMOGLOBIN 10.1 GM/dL (10.7-15.3); LYMPH % 21.7 % (8-40); MCH 23.8 pg (25.7-33.7); MCHC 31.4 g/dl (32.0-36.0); MEAN CELL VOLUME 75.9 fl (80-96); MEAN PLT VOLUME 6.6 fl (7.5-11.1); MONO % 8.5 % (3.8-10.2); NEUT % 67.8 % (42.8-82.8); PLATELET COUNT 402 K/MM3 (134-434); RBC 4.26 M/mm3 (3.60-5.2); RDW 20.5 % (11.6-15.6); WHITE BLOOD COUNT 8.1 K/mm3 (4.0-10.0)
[2019-03-30 13:13] LABS: ALBUMIN 3.4 g/dl (3.4-5.0); BILIRUBIN,DIRECT 0.1 mg/dL (0.0-0.2); BILIRUBIN,TOTAL 0.2 mg/dL (0.2-1); BLOOD UREA NITROGEN 24.7 mg/dL (7-18); CREATININE 0.7 mg/dL (0.55-1.3); MAGNESIUM 2.2 mg/dL (1.8-2.4); POTASSIUM 4.3 mmol/L (3.5-5.1); TOT PROT 6.5 g/dl (6.4-8.2)
[2019-03-30 13:52] LABS: ANISOCYTOSIS 1+; MACROCYTOSIS 0; PLATELET ESTIMATE NORMAL; TARGET CELLS 1+; TEAR DROP CELLS 1+
[2019-03-30 14:44] LABS: EPI CELLS 3.3 /HPF (0-5/HPF); HYALINE CASTS 2 /lpf (0-8); URINE APPEARANCE CLEAR; URINE BACTERIA 5.6 /hpf (NEGATIVE); URINE BILIRUBIN NEGATIVE (NEGATIVE); URINE COLOR YELLOW; URINE GLUCOSE (UA) NEGATIVE (NEGATIVE); URINE KETONE NEGATIVE (NEGATIVE); URINE LEUK ESTERASE NEGATIVE (NEGATIVE); URINE NITRITE NEGATIVE (NEGATIVE); URINE PROTEIN NEGATIVE (NEGATIVE); URINE RBC 2 /hpf (0-4); URINE UROBILINOGEN 0.2 mg/dL (0.2-1.0); URINE WBC 1 /hpf (0-5)
[2019-03-30 17:24] VITALS: TEMP 98.1
[2019-03-30] MEDS ORDERED: PORTA CATH FLUSH 10 ML IVPUSH ONE (17:47)
[2019-03-30 18:03] VITALS: BP 145/85; PULSE 89
== END 2019-03-30 19:31 | disposition home or self-care (01) ==
LOC: JONCCHEMO 05:42 → J7W 12:17 → JONCCHEMO 19:31
PROVIDERS: ATTEND Internal Medicine Hematology & Oncology
DX: Z51.11 Encounter for antineoplastic chemotherapy (principal); C17.0 Malignant neoplasm of duodenum
CPT/HCPCS: 36415; 80048; 80076; 81003; 82523; 82570; 83735; 85025; 96367; 96375; 96413; 96415; 96417; J1453; J2469; J9035; J9206

== ENCOUNTER 2019-04-13 05:48 | Day surgery (SDC) | payer OTHER ==
[2019-04-13] MEDS ORDERED: ATROPINE SULFATE 1 MG/10 ML DISP.SYRIN IVPUSH ONE (09:30)
[2019-04-13] MEDS ORDERED: PALONOSETRON HCL 0.25 MG/5 ML VIAL IVPUSH ONE (09:30)
[2019-04-13] MEDS ORDERED: DEXAMETHASONE SODIUM PHOSPHATE 10 MG in SODIUM CHLORIDE 50 ML IVPB ONE (09:30)
[2019-04-13] MEDS ORDERED: FOSAPREPITANT DIMEGLUMINE 150 MG in SODIUM CHLORIDE 145 ML IVPB SCH (09:30)
[2019-04-13] MEDS ORDERED: IRINOTECAN HCL 240 MG in DEXTROSE 5%-WATER - 500 ML IVPB ONE (10:00)
[2019-04-13 11:23] LABS: BASO % 0.3 % (0-2.0); EOS % 2.3 % (0-4.5); HEMATOCRIT 30.9 % (32.4-45.2); HEMOGLOBIN 9.9 GM/dL (10.7-15.3); LYMPH % 26.7 % (8-40); MCH 24.1 pg (25.7-33.7); MEAN CELL VOLUME 75.5 fl (80-96); MEAN PLT VOLUME 6.4 fl (7.5-11.1); NEUT % 62.7 % (42.8-82.8); PLATELET COUNT 354 K/MM3 (134-434); RBC 4.09 M/mm3 (3.60-5.2); RDW 20.6 % (11.6-15.6); WHITE BLOOD COUNT 6.2 K/mm3 (4.0-10.0)
[2019-04-13] MEDS ORDERED: BEVACIZUMAB IV ONE (11:30)
[2019-04-13] MEDS ORDERED: SODIUM CHLORIDE IV ONE (11:30)
[2019-04-13 11:54] LABS: ALBUMIN 3.2 g/dl (3.4-5.0); BILIRUBIN,TOTAL 0.4 mg/dL (0.2-1); BLOOD UREA NITROGEN 14.8 mg/dL (7-18); CALCIUM 8.7 mg/dL (8.5-10.1); CREATININE 0.8 mg/dL (0.55-1.3); POTASSIUM 4.4 mmol/L (3.5-5.1); TOT PROT 6.1 g/dl (6.4-8.2)
[2019-04-13 13:19] LABS: ANISOCYTOSIS 1+
[2019-04-13 17:14] VITALS: BP 167/92; PULSE 85; TEMP 98
== END 2019-04-13 16:55 | disposition home or self-care (01) ==
LOC: JONCCHEMO 05:48 → J7W 11:06 → JONCCHEMO 16:55
PROVIDERS: ATTEND Internal Medicine Hematology & Oncology
DX: Z51.11 Encounter for antineoplastic chemotherapy (principal); C17.0 Malignant neoplasm of duodenum
CPT/HCPCS: 36415; 80053; 85025; 96367; 96375; 96413; 96415; 96417; J1453; J2469; J9035; J9206

== ENCOUNTER 2019-04-27 07:12 | Day surgery (SDC) | payer OTHER ==
[2019-04-27] MEDS ORDERED: ATROPINE SULFATE 1 MG/10 ML DISP.SYRIN IVPUSH ONE (09:30)
[2019-04-27] MEDS ORDERED: DEXAMETHASONE SODIUM PHOSPHATE 10 MG in SODIUM CHLORIDE 50 ML IVPB ONE (09:30)
[2019-04-27] MEDS ORDERED: PALONOSETRON HCL 0.25 MG/5 ML VIAL IVPUSH ONE (09:30)
[2019-04-27] MEDS ORDERED: FOSAPREPITANT DIMEGLUMINE 150 MG in SODIUM CHLORIDE 145 ML IVPB ONE (09:30)
[2019-04-27] MEDS ORDERED: IRINOTECAN HCL 240 MG in DEXTROSE 5%-WATER - 500 ML IVPB ONE (10:00)
[2019-04-27] MEDS ORDERED: BEVACIZUMAB IV ONE (11:30)
[2019-04-27] MEDS ORDERED: SODIUM CHLORIDE IV ONE (11:30)
[2019-04-27 12:51] LABS: BASO % 0.7 % (0-2.0); HEMATOCRIT 33.3 % (32.4-45.2); HEMOGLOBIN 10.4 GM/dL (10.7-15.3); LYMPH % 23.5 % (8-40); MCHC 31.3 g/dl (32.0-36.0); MEAN CELL VOLUME 76.7 fl (80-96); MEAN PLT VOLUME 6.8 fl (7.5-11.1); MONO % 8.4 % (3.8-10.2); NEUT % 64.4 % (42.8-82.8); PLATELET COUNT 382 K/MM3 (134-434); RBC 4.33 M/mm3 (3.60-5.2); RDW 21.1 % (11.6-15.6); WHITE BLOOD COUNT 7.3 K/mm3 (4.0-10.0)
[2019-04-27 13:29] LABS: CHOLESTEROL 183 mg/dL (50-200); HDL CHOLESTEROL 43 mg/dL (40-60); LDL CHOLESTEROL (ONLY SJRH) 110 mg/dL (5-100); TRIGLYCERIDES 223 mg/dL (0-150)
[2019-04-27 13:30] LABS: ALBUMIN 3.3 g/dl (3.4-5.0); BILIRUBIN,TOTAL 0.3 mg/dL (0.2-1); BLOOD UREA NITROGEN 20.7 mg/dL (7-18); CALCIUM 8.9 mg/dL (8.5-10.1); CREATININE 0.9 mg/dL (0.55-1.3); MAGNESIUM 2.1 mg/dL (1.8-2.4); POTASSIUM 4.8 mmol/L (3.5-5.1); TOT PROT 6.4 g/dl (6.4-8.2)
[2019-04-27 14:03] LABS: ANISOCYTOSIS 2+; PLATELET ESTIMATE NORMAL
[2019-04-27 18:04] VITALS: TEMP 98
[2019-04-27 18:19] VITALS: BP 166/86; PULSE 95
== END 2019-04-27 19:19 | disposition home or self-care (01) ==
LOC: JONCCHEMO 07:12 → J7W 12:49 → JONCCHEMO 19:19
PROVIDERS: ATTEND Internal Medicine Hematology & Oncology
DX: Z51.11 Encounter for antineoplastic chemotherapy (principal); C17.0 Malignant neoplasm of duodenum
CPT/HCPCS: 36415; 80053; 80061; 83721; 83735; 85025; 96367; 96375; 96413; 96415; 96417; J1453; J2469; J9035; J9206

== ENCOUNTER 2019-05-11 05:33 | Day surgery (SDC) | payer OTHER ==
[2019-05-11] MEDS ORDERED: DEXAMETHASONE SODIUM PHOSPHATE 10 MG in SODIUM CHLORIDE 50 ML IVPB ONE (10:00)
[2019-05-11] MEDS ORDERED: PALONOSETRON HCL 0.25 MG/5 ML VIAL IVPUSH ONE (10:00)
[2019-05-11] MEDS ORDERED: ATROPINE SO4 0.4 MG/1 ML VIAL IVPUSH ONE (10:00)
[2019-05-11] MEDS ORDERED: FOSAPREPITANT DIMEGLUMINE 150 MG in SODIUM CHLORIDE 150 ML IVPB ONE (10:00)
[2019-05-11] MEDS ORDERED: SODIUM CHLORIDE IV ONE (10:30)
[2019-05-11] MEDS ORDERED: BEVACIZUMAB IV ONE (10:30)
[2019-05-11] MEDS ORDERED: IRINOTECAN HCL 240 MG in DEXTROSE 5%-WATER - 500 ML IVPB ONE ×2 (11:00→11:12)
[2019-05-11 11:47] LABS: BASO % 0.3 % (0-2.0); EOS % 2.2 % (0-4.5); HEMATOCRIT 33.4 % (32.4-45.2); HEMOGLOBIN 10.5 GM/dL (10.7-15.3); LYMPH % 24.8 % (8-40); MCH 24.2 pg (25.7-33.7); MCHC 31.4 g/dl (32.0-36.0); MEAN CELL VOLUME 76.8 fl (80-96); MEAN PLT VOLUME 6.7 fl (7.5-11.1); MONO % 8.6 % (3.8-10.2); NEUT % 64.1 % (42.8-82.8); PLATELET COUNT 386 K/MM3 (134-434); RBC 4.35 M/mm3 (3.60-5.2); RDW 21.5 % (11.6-15.6); WHITE BLOOD COUNT 7.3 K/mm3 (4.0-10.0)
[2019-05-11 12:22] LABS: ALBUMIN 3.2 g/dl (3.4-5.0); BILIRUBIN,TOTAL 0.2 mg/dL (0.2-1); BLOOD UREA NITROGEN 19.4 mg/dL (7-18); CALCIUM 8.9 mg/dL (8.5-10.1); CREATININE 0.9 mg/dL (0.55-1.3); MAGNESIUM 2.2 mg/dL (1.8-2.4); POTASSIUM 4.7 mmol/L (3.5-5.1); TOT PROT 6.2 g/dl (6.4-8.2)
[2019-05-11 12:24] LABS: ANISOCYTOSIS 1+; MACROCYTOSIS 0; PLATELET ESTIMATE NORMAL
[2019-05-11 16:11] VITALS: TEMP 97.9
[2019-05-11 16:13] VITALS: BP 148/89; PULSE 88
== END 2019-05-11 16:14 | disposition home or self-care (01) ==
LOC: JONCCHEMO 05:33 → J7W 12:19 → JONCCHEMO 16:14
PROVIDERS: ATTEND Internal Medicine Hematology & Oncology
PROC: 3E04305 Introduction of Other Antineoplastic into Central Vein, Percutaneous Approach (ICD-10-PCS; principal; 2019-05-11)
PROC: 3E043GC Introduction of Other Therapeutic Substance into Central Vein, Percutaneous Approach (ICD-10-PCS; 2019-05-11)
DX: Z51.11 Encounter for antineoplastic chemotherapy (principal); C17.0 Malignant neoplasm of duodenum; I10 Essential (primary) hypertension; E78.00 Pure hypercholesterolemia, unspecified
CPT/HCPCS: 36415; 80053; 83036; 83735; 85025; 96367; 96375; 96413; 96417; J1453; J2469; J9035; J9206

== ENCOUNTER 2019-05-25 05:51 | Day surgery (SDC) | payer OTHER ==
[2019-05-25] MEDS ORDERED: PALONOSETRON HCL 0.25 MG/5 ML VIAL IVPUSH ONE (10:00)
[2019-05-25] MEDS ORDERED: FOSAPREPITANT DIMEGLUMINE 150 MG in SODIUM CHLORIDE 150 ML IVPB ONE (10:00)
[2019-05-25] MEDS ORDERED: ATROPINE SO4 0.4 MG/1 ML VIAL IVPUSH ONE (10:00)
[2019-05-25] MEDS ORDERED: DEXAMETHASONE SODIUM PHOSPHATE 10 MG in SODIUM CHLORIDE 50 ML IVPB ONE (10:00)
[2019-05-25] MEDS ORDERED: BEVACIZUMAB IV ONE (10:30)
[2019-05-25] MEDS ORDERED: SODIUM CHLORIDE IV ONE (10:30)
[2019-05-25] MEDS ORDERED: IRINOTECAN HCL 240 MG in DEXTROSE 5%-WATER - 500 ML IVPB ONE (11:00)
[2019-05-25 11:19] LABS: BASO % 0.6 % (0-2.0); EOS % 2.5 % (0-4.5); HEMATOCRIT 32.5 % (32.4-45.2); HEMOGLOBIN 10.5 GM/dL (10.7-15.3); LYMPH % 23.6 % (8-40); MCH 24.7 pg (25.7-33.7); MCHC 32.2 g/dl (32.0-36.0); MEAN CELL VOLUME 76.8 fl (80-96); MEAN PLT VOLUME 6.2 fl (7.5-11.1); MONO % 7.7 % (3.8-10.2); NEUT % 65.6 % (42.8-82.8); PLATELET COUNT 354 K/MM3 (134-434); RBC 4.24 M/mm3 (3.60-5.2); RDW 21.1 % (11.6-15.6); WHITE BLOOD COUNT 6.7 K/mm3 (4.0-10.0)
[2019-05-25 11:46] LABS: ALBUMIN 3.3 g/dl (3.4-5.0); BILIRUBIN,TOTAL 0.2 mg/dL (0.2-1); CALCIUM 8.6 mg/dL (8.5-10.1); CREATININE 0.8 mg/dL (0.55-1.3); POTASSIUM 3.8 mmol/L (3.5-5.1); TOT PROT 6.4 g/dl (6.4-8.2)
[2019-05-25 12:41] LABS: ANISOCYTOSIS 1+; HELMET CELLS 1+; MACROCYTOSIS 0; PLATELET ESTIMATE NORMAL; TEAR DROP CELLS 1+
[2019-05-25 16:17] VITALS: TEMP 98
[2019-05-25] MEDS ORDERED: PORTA CATH FLUSH 10 ML IVPUSH ONE (16:17)
[2019-05-25 17:12] VITALS: BP 146/74; PULSE 91
== END 2019-05-25 16:42 | disposition home or self-care (01) ==
LOC: JONCCHEMO 05:51 → J7W 12:40 → JONCCHEMO 16:42
PROVIDERS: ATTEND Internal Medicine Hematology & Oncology
DX: Z51.11 Encounter for antineoplastic chemotherapy (principal); C17.0 Malignant neoplasm of duodenum; I10 Essential (primary) hypertension; E78.00 Pure hypercholesterolemia, unspecified
CPT/HCPCS: 36415; 80053; 82378; 83735; 85025; 96367; 96375; 96413; 96417; J1453; J2469; J9035; J9206

== ENCOUNTER 2019-06-08 07:15 | Day surgery (SDC) | payer OTHER ==
[2019-06-08] MEDS ORDERED: DEXAMETHASONE SODIUM PHOSPHATE 10 MG in SODIUM CHLORIDE 50 ML IVPB ONE (09:30)
[2019-06-08] MEDS ORDERED: ATROPINE SULFATE 1 MG/10 ML DISP.SYRIN IVPUSH ONE (09:30)
[2019-06-08] MEDS ORDERED: FOSAPREPITANT DIMEGLUMINE 150 MG in SODIUM CHLORIDE 145 ML IVPB ONE (09:30)
[2019-06-08] MEDS ORDERED: PALONOSETRON HCL 0.25 MG/5 ML VIAL IVPUSH ONE (09:30)
[2019-06-08] MEDS ORDERED: IRINOTECAN HCL 240 MG in DEXTROSE 5%-WATER - 500 ML IVPB ONE (10:00)
[2019-06-08] MEDS ORDERED: BEVACIZUMAB IV ONE (11:30)
[2019-06-08] MEDS ORDERED: SODIUM CHLORIDE IV ONE (11:30)
[2019-06-08 12:00] LABS: BASO % 0.6 % (0-2.0); EOS % 2.2 % (0-4.5); HEMATOCRIT 33.1 % (32.4-45.2); HEMOGLOBIN 10.5 GM/dL (10.7-15.3); LYMPH % 24.2 % (8-40); MCH 24.5 pg (25.7-33.7); MCHC 31.8 g/dl (32.0-36.0); MEAN CELL VOLUME 77.2 fl (80-96); MEAN PLT VOLUME 7.4 fl (7.5-11.1); MONO % 8.2 % (3.8-10.2); NEUT % 64.8 % (42.8-82.8); PLATELET COUNT 197 K/MM3 (134-434); RBC 4.28 M/mm3 (3.60-5.2); RDW 20.8 % (11.6-15.6)
[2019-06-08 12:31] LABS: ALBUMIN 3.3 g/dl (3.4-5.0); BILIRUBIN,TOTAL 0.2 mg/dL (0.2-1); CALCIUM 8.5 mg/dL (8.5-10.1); CREATININE 0.8 mg/dL (0.55-1.3); MAGNESIUM 2.2 mg/dL (1.8-2.4); POTASSIUM 4.6 mmol/L (3.5-5.1); TOT PROT 6.2 g/dl (6.4-8.2)
[2019-06-08] MEDS ORDERED: SODIUM CHLORIDE IVPB ONE (13:45)
[2019-06-08] MEDS ORDERED: BEVACIZUMAB AWWB IVPB ONE (13:45)
[2019-06-08 15:42] LABS: ANISOCYTOSIS 1+; MACROCYTOSIS 0; PLATELET ESTIMATE NORMAL
[2019-06-08 16:24] VITALS: TEMP 97.9
[2019-06-08] MEDS ORDERED: PORTA CATH FLUSH 10 ML IVPUSH ONE (16:29)
[2019-06-08 17:09] VITALS: BP 149/66; PULSE 81
== END 2019-06-08 17:20 | disposition home or self-care (01) ==
LOC: JONCCHEMO 07:15 → J7W 12:41 → JONCCHEMO 17:20
PROVIDERS: ATTEND Internal Medicine Hematology & Oncology
DX: Z51.11 Encounter for antineoplastic chemotherapy (principal); C17.0 Malignant neoplasm of duodenum
CPT/HCPCS: 36415; 80053; 83735; 85025; 96367; 96375; 96413; 96417; J1453; J2469; J9206; Q5107

== ENCOUNTER 2019-06-22 07:00 | Day surgery (SDC) | payer OTHER ==
[2019-06-22] MEDS ORDERED: ATROPINE SO4 0.4 MG/1 ML VIAL IVPUSH ONE (10:00)
[2019-06-22] MEDS ORDERED: FOSAPREPITANT DIMEGLUMINE 150 MG in SODIUM CHLORIDE 150 ML IVPB ONE (10:00)
[2019-06-22] MEDS ORDERED: DEXAMETHASONE SODIUM PHOSPHATE 10 MG in SODIUM CHLORIDE 50 ML IVPB ONE (10:00)
[2019-06-22] MEDS ORDERED: PALONOSETRON HCL 0.25 MG/5 ML VIAL IVPUSH ONE (10:00)
[2019-06-22] MEDS ORDERED: SODIUM CHLORIDE IVPB ONE (10:30)
[2019-06-22] MEDS ORDERED: BEVACIZUMAB AWWB IVPB ONE (10:30)
[2019-06-22] MEDS ORDERED: IRINOTECAN HCL 240 MG in DEXTROSE 5%-WATER - 500 ML IVPB ONE (11:00)
[2019-06-22 11:08] LABS: BASO % 0.3 % (0-2.0); EOS % 2.3 % (0-4.5); HEMATOCRIT 33.1 % (32.4-45.2); LYMPH % 26.6 % (8-40); MCH 25.3 pg (25.7-33.7); MEAN CELL VOLUME 76.7 fl (80-96); MEAN PLT VOLUME 6.4 fl (7.5-11.1); MONO % 8.2 % (3.8-10.2); NEUT % 62.6 % (42.8-82.8); PLATELET COUNT 361 K/MM3 (134-434); RBC 4.32 M/mm3 (3.60-5.2); RDW 20.4 % (11.6-15.6); WHITE BLOOD COUNT 6.6 K/mm3 (4.0-10.0)
[2019-06-22 11:28] LABS: ALBUMIN 3.2 g/dl (3.4-5.0); BILIRUBIN,TOTAL 0.2 mg/dL (0.2-1); CALCIUM 8.5 mg/dL (8.5-10.1); CREATININE 0.9 mg/dL (0.55-1.3); MAGNESIUM 1.9 mg/dL (1.8-2.4); POTASSIUM 4.6 mmol/L (3.5-5.1); TOT PROT 6.6 g/dl (6.4-8.2)
[2019-06-22 17:26] VITALS: BP 152/79; PULSE 102; TEMP 98.2
[2019-06-22] MEDS ORDERED: PORTA CATH FLUSH 10 ML IVPUSH ONE (17:26)
== END 2019-06-22 17:00 | disposition home or self-care (01) ==
LOC: JONCCHEMO 07:00 → J7W 11:58 → JONCCHEMO 17:00
PROVIDERS: ATTEND Internal Medicine Hematology & Oncology
DX: Z51.11 Encounter for antineoplastic chemotherapy (principal); C17.0 Malignant neoplasm of duodenum
CPT/HCPCS: 36415; 80053; 82378; 83735; 85025; 96367; 96375; 96413; 96417; J1453; J2469; J9206; Q5107

== ENCOUNTER 2019-07-08 06:46 | Day surgery (SDC) | payer OTHER ==
[2019-07-08] MEDS ORDERED: FOSAPREPITANT DIMEGLUMINE 150 MG in SODIUM CHLORIDE 150 ML IVPB ONE (10:00)
[2019-07-08] MEDS ORDERED: ATROPINE SO4 0.4 MG/1 ML VIAL IVPUSH ONE (10:00)
[2019-07-08] MEDS ORDERED: DEXAMETHASONE SODIUM PHOSPHATE 10 MG in SODIUM CHLORIDE 50 ML IVPB ONE (10:00)
[2019-07-08] MEDS ORDERED: PALONOSETRON HCL 0.25 MG/5 ML VIAL IVPUSH ONE (10:00)
[2019-07-08] MEDS ORDERED: SODIUM CHLORIDE IVPB ONE (10:30)
[2019-07-08] MEDS ORDERED: BEVACIZUMAB AWWB IVPB ONE (10:30)
[2019-07-08] MEDS ORDERED: IRINOTECAN HCL 240 MG in DEXTROSE 5%-WATER - 500 ML IVPB ONE (11:00)
[2019-07-08 12:12] LABS: BASO % 0.4 % (0-2.0); EOS % 2.5 % (0-4.5); LYMPH % 22.3 % (8-40); MCH 24.5 pg (25.7-33.7); MCHC 31.4 g/dl (32.0-36.0); MEAN CELL VOLUME 78.2 fl (80-96); MEAN PLT VOLUME 6.7 fl (7.5-11.1); MONO % 6.5 % (3.8-10.2); NEUT % 68.3 % (42.8-82.8); PLATELET COUNT 377 K/MM3 (134-434); RBC 4.48 M/mm3 (3.60-5.2); RDW 19.8 % (11.6-15.6); WHITE BLOOD COUNT 8.5 K/mm3 (4.0-10.0)
[2019-07-08 12:51] LABS: ALBUMIN 3.4 g/dl (3.4-5.0); BILIRUBIN,TOTAL 0.2 mg/dL (0.2-1); CALCIUM 8.7 mg/dL (8.5-10.1); CREATININE 0.9 mg/dL (0.55-1.3); POTASSIUM 4.7 mmol/L (3.5-5.1); TOT PROT 6.4 g/dl (6.4-8.2)
[2019-07-08 16:05] VITALS: TEMP 98.3
[2019-07-08] MEDS ORDERED: PORTA CATH FLUSH 10 ML IVPUSH ONE (16:56)
[2019-07-08 17:22] VITALS: BP 140/88; PULSE 93
== END 2019-07-08 17:31 | disposition home or self-care (01) ==
LOC: JONCCHEMO 06:46 → J7W 11:43 → JONCCHEMO 17:31
PROVIDERS: ATTEND Internal Medicine Hematology & Oncology
PROC: 3E04305 Introduction of Other Antineoplastic into Central Vein, Percutaneous Approach (ICD-10-PCS; principal; 2019-07-08)
PROC: 3E043GC Introduction of Other Therapeutic Substance into Central Vein, Percutaneous Approach (ICD-10-PCS; 2019-07-08)
DX: Z51.11 Encounter for antineoplastic chemotherapy (principal); C17.0 Malignant neoplasm of duodenum; I10 Essential (primary) hypertension; E78.00 Pure hypercholesterolemia, unspecified
CPT/HCPCS: 36415; 80053; 83735; 85025; 96375; 96413; 96417; J1453; J2469; J9206; Q5107

== ENCOUNTER 2019-07-20 05:39 | Day surgery (SDC) | payer OTHER ==
[2019-07-20] MEDS ORDERED: ATROPINE SO4 0.4 MG/1 ML VIAL IVPUSH ONE (10:00)
[2019-07-20] MEDS ORDERED: DEXAMETHASONE SODIUM PHOSPHATE 10 MG in SODIUM CHLORIDE 50 ML IVPB ONE (10:00)
[2019-07-20] MEDS ORDERED: FOSAPREPITANT DIMEGLUMINE 150 MG in SODIUM CHLORIDE 150 ML IVPB ONE (10:00)
[2019-07-20] MEDS ORDERED: PALONOSETRON HCL 0.25 MG/5 ML VIAL IVPUSH ONE (10:00)
[2019-07-20] MEDS ORDERED: BEVACIZUMAB AWWB IVPB ONE (10:30)
[2019-07-20] MEDS ORDERED: SODIUM CHLORIDE IVPB ONE (10:30)
[2019-07-20] MEDS ORDERED: IRINOTECAN HCL 240 MG in DEXTROSE 5%-WATER - 500 ML IVPB ONE (11:00)
[2019-07-20 11:57] LABS: ALBUMIN 3.1 g/dl (3.4-5.0); BILIRUBIN,TOTAL 0.1 mg/dL (0.2-1); BLOOD UREA NITROGEN 15.6 mg/dL (7-18); CALCIUM 8.4 mg/dL (8.5-10.1); CREATININE 0.8 mg/dL (0.55-1.3); MAGNESIUM 1.9 mg/dL (1.8-2.4); POTASSIUM 4.6 mmol/L (3.5-5.1); TOT PROT 6.1 g/dl (6.4-8.2)
[2019-07-20 12:25] LABS: BASO % 1.3 % (0-2.0); EOS % 2.3 % (0-4.5); HEMATOCRIT 32.8 % (32.4-45.2); HEMOGLOBIN 10.1 GM/dL (10.7-15.3); LYMPH % 22.8 % (8-40); MCH 24.3 pg (25.7-33.7); MCHC 30.9 g/dl (32.0-36.0); MEAN CELL VOLUME 78.6 fl (80-96); MEAN PLT VOLUME 6.9 fl (7.5-11.1); NEUT % 64.6 % (42.8-82.8); PLATELET COUNT 337 K/MM3 (134-434); RBC 4.18 M/mm3 (3.60-5.2); RDW 19.6 % (11.6-15.6); WHITE BLOOD COUNT 6.9 K/mm3 (4.0-10.0)
[2019-07-20 17:31] VITALS: TEMP 97.9
[2019-07-20 17:38] VITALS: BP 155/92; PULSE 82
[2019-07-20] MEDS ORDERED: PORTA CATH FLUSH 10 ML IVPUSH ONE (17:38)
== END 2019-07-20 17:00 | disposition home or self-care (01) ==
LOC: JONCCHEMO 05:39 → J7W 12:22 → JONCCHEMO 17:00
PROVIDERS: ATTEND Internal Medicine Hematology & Oncology
DX: Z51.11 Encounter for antineoplastic chemotherapy (principal); C17.0 Malignant neoplasm of duodenum
CPT/HCPCS: 36415; 80053; 83735; 85025; 96367; 96375; 96413; 96417; J1453; J2469; J9206; Q5107

== ENCOUNTER 2019-08-03 05:33 | Day surgery (SDC) | payer OTHER ==
[2019-08-03] MEDS ORDERED: FOSAPREPITANT DIMEGLUMINE 150 MG in SODIUM CHLORIDE 145 ML IVPB ONE (09:30)
[2019-08-03] MEDS ORDERED: PALONOSETRON HCL 0.25 MG/5 ML VIAL IVPUSH ONE (09:30)
[2019-08-03] MEDS ORDERED: ATROPINE SULFATE 1 MG/10 ML DISP.SYRIN IVPUSH ONE (09:30)
[2019-08-03] MEDS ORDERED: DEXAMETHASONE SODIUM PHOSPHATE 10 MG in SODIUM CHLORIDE 50 ML IVPB ONE (09:30)
[2019-08-03] MEDS ORDERED: BEVACIZUMAB AWWB IVPB ONE (10:00)
[2019-08-03] MEDS ORDERED: SODIUM CHLORIDE IVPB ONE (10:00)
[2019-08-03] MEDS ORDERED: IRINOTECAN HCL 240 MG in DEXTROSE 5%-WATER - 500 ML IVPB ONE (10:30)
[2019-08-03 12:04] LABS: BASO % 0.3 % (0-2.0); HEMATOCRIT 32.2 % (32.4-45.2); HEMOGLOBIN 10.4 GM/dL (10.7-15.3); LYMPH % 23.4 % (8-40); MCH 25.1 pg (25.7-33.7); MCHC 32.3 g/dl (32.0-36.0); MEAN CELL VOLUME 77.8 fl (80-96); MEAN PLT VOLUME 6.6 fl (7.5-11.1); MONO % 6.7 % (3.8-10.2); NEUT % 67.6 % (42.8-82.8); PLATELET COUNT 366 K/MM3 (134-434); RBC 4.14 M/mm3 (3.60-5.2); RDW 19.8 % (11.6-15.6); WHITE BLOOD COUNT 7.9 K/mm3 (4.0-10.0)
[2019-08-03 12:30] LABS: BLOOD UREA NITROGEN 19.4 mg/dL (7-18); CALCIUM 8.7 mg/dL (8.5-10.1); CREATININE 0.8 mg/dL (0.55-1.3); POTASSIUM 4.5 mmol/L (3.5-5.1)
[2019-08-03 12:32] LABS: ALBUMIN 3.1 g/dl (3.4-5.0); ALK PHOS 102 U/L (45-117); BILIRUBIN,DIRECT < 0.1 mg/dL (0.0-0.2); BILIRUBIN,TOTAL 0.2 mg/dL (0.2-1); SGOT/AST 8 U/L (15-37); SGPT/ALT 20 U/L (13-61); TOT PROT 6.1 g/dl (6.4-8.2)
[2019-08-03 15:03] VITALS: TEMP 97.9
[2019-08-03] MEDS ORDERED: PORTA CATH FLUSH 10 ML IVPUSH ONE (15:03)
[2019-08-03] MEDS ORDERED: PROCHLORPERAZINE MALEATE 5 MG TABLET PO PRN (18:10)
[2019-08-03 18:38] VITALS: PULSE 85
[2019-08-03 18:40] VITALS: BP 168/92
== END 2019-08-03 18:30 | disposition home or self-care (01) ==
LOC: JONCCHEMO 05:33 → J7W 13:12 → JONCCHEMO 18:30
PROVIDERS: ATTEND Internal Medicine Hematology & Oncology
DX: Z51.11 Encounter for antineoplastic chemotherapy (principal); C17.0 Malignant neoplasm of duodenum
CPT/HCPCS: 36415; 80048; 80076; 83735; 85025; 96367; 96375; 96413; 96415; 96417; J1453; J2469; J9206; Q5107

== ENCOUNTER 2019-08-17 11:43 | Emergency (ER) | payer OTHER ==
[2019-08-17 12:01] VITALS: BMI 28.3
[2019-08-17 13:44] LABS: BASO % 0.3 % (0-2.0); HEMATOCRIT 34.8 % (32.4-45.2); HEMOGLOBIN 11.4 GM/dL (10.7-15.3); LYMPH % 22.8 % (8-40); MCH 25.2 pg (25.7-33.7); MCHC 32.6 g/dl (32.0-36.0); MEAN CELL VOLUME 77.3 fl (80-96); MEAN PLT VOLUME 6.6 fl (7.5-11.1); MONO % 10.6 % (3.8-10.2); NEUT % 65.3 % (42.8-82.8); PLATELET COUNT 324 K/MM3 (134-434); RDW 19.6 % (11.6-15.6); WHITE BLOOD COUNT 8.4 K/mm3 (4.0-10.0)
[2019-08-17 13:45] LABS: PH,URINE 5.5 (5.0-8.0); URINE APPEARANCE CLEAR; URINE BILIRUBIN NEGATIVE (NEGATIVE); URINE COLOR YELLOW; URINE GLUCOSE (UA) NEGATIVE (NEGATIVE); URINE KETONE NEGATIVE (NEGATIVE); URINE LEUK ESTERASE NEGATIVE (NEGATIVE); URINE NITRITE NEGATIVE (NEGATIVE); URINE PROTEIN NEGATIVE (NEGATIVE); URINE UROBILINOGEN 0.2 mg/dL (0.2-1.0)
--- NOTE | 2019-08-17 13:49 | PDOC ---
History of Present Illness - General Chief Complaint: Blood Pressure Problem Stated Complaint: HYPERTENSION Time Seen by Provider: 08/17/19 12:52 History Source: Patient, Unavil. due to pt. cond. - History of Present Illness Initial Comments: 08/17/19 13:16 73-year-old female with history of duodenal cancer currently on chemo was at Dr. Johnson's office today to receive chemo when she started to feel dizzy while having her blood pressure and blood drawn. Patient states has had no other complaints and ate breakfast this morning and had no recent fall or illness/ injury. Is this a multiple visit Asthma Patient?: No Timing/Duration: intermittent Severity: moderate Associated Symptoms: reports: other (Dizziness) Past History - Travel Traveled outside of the country in the last 30 days: No Close contact w/someone who was outside of country & ill: No - Past Medical History Allergies/Adverse Reactions: Allergies Allergy/AdvReac Type Severity Reaction Status Date / Time furosemide [From Lasix] Allergy Severe Hives Verified 10/07/18 16:24 oxaliplatin Allergy Severe Hives Verified 10/07/18 16:24 Sulfa (Sulfonamide Allergy Verified 10/14/18 12:51 Antibiotics) Penicillins AdvReac Unknown "happened Verified 10/06/18 11:08 as a child-?reaction" Home Medications: Ambulatory Orders Atorvastatin Ca [Lipitor] 80 mg PO HS 03/31/17 Esomeprazole Mag Trihydrate [NexIUM for SUSP] 40 mg PO DAILY 03/31/17 Levothyroxine [Synthroid -] 25 mcg PO DAILY 03/31/17 Pyridoxine HCl (B-6) [Vitamin B6] 100 mg PO DAILY 03/24/18 Ondansetron HCl [Zofran] 4 mg PO ASDIR 03/16/19 Amlodipine Besylate/Valsartan [Amlodipine-Valsartan 10-160 mg] 1 tab PO HS 07/08 Anemia: No Asthma: No Cancer: Yes (duodenal-receiving chemo, adenocarcimoma) Cardiac Disorders: No CVA: No COPD: No CHF: No Dementia: No Diabetes: No GI Disorders: No Disorders: No HTN: Yes Hypercholesterolemia: Yes Liver Disease: No Seizures: No Thyroid Disease: Yes - Psycho Social/Smoking Cessation Hx Smoking History: Never smoked Hx Alcohol Use: No Drug/Substance Use Hx: No Substance Use Type: None Patient Lives Alone: No Lives with/in: spouse/SO Review of Systems - Review of Systems Able to Perform ROS?: Yes Constitutional: No: Symptoms Reported HEENTM: No: Symptoms Reported Respiratory: No: Symptoms reported Cardiac (ROS): Yes: Lightheadedness ABD/GI: No: Symptoms Reported : No: Symptoms Reported Musculoskeletal: No: Symptoms Reported Integumentary: No: Symptoms Reported Neurological: Yes: Dizziness Endocrine: No: Symptoms Reported *Physical Exam - Vital Signs Last Vital Signs Temp Pulse Resp BP Pulse Ox 98.4 F 97 H 18 146/81 99 08/17/19 11:58 08/17/19 11:58 08/17/19 11:58 08/17/19 11:58 08/17/19 11:58 - Physical Exam General Appearance: Yes: Nourished, Appropriately Dressed. No: Apparent Distress HEENT: positive: EOMI, GENESIS, TMs Normal, Pharynx Normal. negative: Pale Conjunctivae Neck: positive: Supple Respiratory/Chest: positive: Lungs Clear, Normal Breath Sounds. negative: Respiratory Distress, Accessory Muscle Use Cardiovascular: positive: Regular Rhythm, Regular Rate. negative: Murmur Gastrointestinal/Abdominal: positive: Soft. negative: Tenderness Musculoskeletal: negative: CVA Tenderness Extremity: positive: Normal Inspection Integumentary: positive: Normal Color, Warm, Moist Neurologic: positive: Motor Strength 5/5 (ambulatory) Heart Score/ECG Review - ECG Intrepretation Rhythm: Regular Rhythm (Rate 89 normal sinus rhythm no ST elevation or depression) ED Treatment Course - LABORATORY CBC & Chemistry Diagram: 08/17/19 13:30 08/17/19 13:30 - RADIOLOGY Radiology Studies Ordered: Category Date Time Status HEAD CT WITHOUT CONTRAST [CT] Stat CT Scan 08/17/19 12:55 Ordered CHEST X-RAY PORTABLE* [RAD] Stat Radiology 08/17/19 12:55 Ordered Medical Decision Making - Medical Decision Making 08/17/19 13:51 Chief complaint: Dizziness upon blood draw and vital sign check. Patient was to receive chemo today which she receives chemotherapy under Dr. Atkinson no other complaints. Exam: Vital signs stable no acute findings on exam plan: Labs, urine, EKG, head CT ordered will consult oncologist once resulted 08/17/19 14:16 Laboratory Tests 08/17/19 08/17/19 13:30 13:30 WBC 8.4 Hgb 11.4 Hct 34.8 MCV 77.3 L MCH 25.2 L RDW 19.6 H MPV 6.6 L Monocytes % 10.6 H Ur Specific [place] 1.004 L Urine Nitrite Negative Ur Leukocyte Esterase Negative 08/17/19 14:[address] negative for acute pathology. Chest x-ray negative for acute pathology. 08/17/19 14:33 comp still pending we will consult oncologist once resulted 08/17/19 15:05 Laboratory Tests 08/17/19 08/17/19 08/17/19 13:30 13:30 13:30 WBC 8.4 Hgb 11.4 Hct 34.8 Neutrophils % 65.3 Monocytes % 10.6 H Sodium 136 Potassium 4.7 Chloride 103 Carbon Dioxide 25 Anion Gap 8 BUN 15.5 Creatinine 0.8 Est GFR (CKD-EPI)AfAm 85.37 Est GFR (CKD-EPI)NonAf 73.65 Random Glucose 92 Calcium 8.5 Total Bilirubin 0.2 AST 15 ALT 23 Creatine Kinase 41 Troponin I < 0.02 Total Protein 6.9 Albumin 3.4 Ur Specific [place] 1.004 L Urine Protein Negative Urine Glucose (UA) Negative Urine Ketones Negative Urine Blood Negative Urine Nitrite Negative Urine Bilirubin Negative Urine Urobilinogen 0.2 Ur Leukocyte Esterase Negative Patient remains asymptomatic. Will discharge patient home. Case discussed with oncologist Discharge - Discharge Information Problems reviewed: Yes Clinical Impression/Diagnosis: Dizziness Condition: Improved Disposition: HOME - Follow up/Referral Referrals: Charlene Echevarria MD [Primary Care Provider] - Elizabeth Ruiz MD [Staff Physician] - Medardo Brennan MD [Staff Physician] - - Patient Discharge Instructions Patient Printed Discharge Instructions: DI for Dizziness-Nonvertigo Additional Instructions: Please follow-up with your oncologist. 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 - Post Discharge Activity
--- NOTE | 2019-08-17 13:53 | EKG ---
Test Reason : Blood Pressure : / mmHG Vent. Rate : 089 BPM Atrial Rate : 089 BPM P-R Int : 152 ms QRS Dur : 068 ms QT Int : 358 ms P-R-T Axes : 053 -11 044 degrees QTc Int : 435 ms POOR DATA QUALITY, INTERPRETATION MAY BE ADVERSELY AFFECTED NORMAL SINUS RHYTHM NORMAL ECG WHEN COMPARED WITH ECG OF 06-OCT-2018 11:08, NO SIGNIFICANT CHANGE WAS FOUND Confirmed by Ar Greene ([id number]) on 08/17/2019 1:53:13 PM Referred By: Confirmed By:Ar Greene
[2019-08-17 14:54] LABS: ALBUMIN 3.4 g/dl (3.4-5.0); ALK PHOS 110 U/L (45-117); ANION GAP 8 MMOL/L (8-16); BILIRUBIN,TOTAL 0.2 mg/dL (0.2-1); BLOOD UREA NITROGEN 15.5 mg/dL (7-18); CALCIUM 8.5 mg/dL (8.5-10.1); CHLORIDE 103 mmol/L (98-107); CO2 25 mmol/L (21-32); CREATININE 0.8 mg/dL (0.55-1.3); GLUCOSE,RANDOM 92 mg/dL (74-106); POTASSIUM 4.7 mmol/L (3.5-5.1); SGOT/AST 15 U/L (15-37); SGPT/ALT 23 U/L (13-61); SODIUM 136 mmol/L (136-145); TOT PROT 6.9 g/dl (6.4-8.2)
[2019-08-17 15:21] VITALS: BP 134/83; PULSE 83; TEMP 97.7
== END 2019-08-17 15:22 | disposition home or self-care (01) ==
LOC: JER 11:43
DX: R42 Dizziness and giddiness (principal); I10 Essential (primary) hypertension; C17.0 Malignant neoplasm of duodenum; E78.00 Pure hypercholesterolemia, unspecified; E03.9 Hypothyroidism, unspecified; Z88.0 Allergy status to penicillin; Z88.2 Allergy status to sulfonamides; Z88.8 Allergy status to other drugs, medicaments and biological substances
CPT/HCPCS: 36415; 70450-TC; 71045-TC-FY; 80053; 81003; 82550; 83735; 84484; 85025; 87086; 87186; 93005; 93010; 99283-25

== ENCOUNTER 2019-08-24 10:38 | Day surgery (SDC) | payer OTHER ==
[~2019-08-24 10:38] MED LIST changes: -ATROPINE SO4 0.4 MG/1 ML VIAL IVPUSH ONE; +ATROPINE SULFATE 1 MG/10 ML DISP.SYRIN IVPUSH ONE; +BEVACIZUMAB AWWB IVPB ONE; -BEVACIZUMAB IV ONE; +FOSAPREPITANT DIMEGLUMINE 150 MG in SODIUM CHLORIDE 145 ML IVPB ONE; -SODIUM CHLORIDE IV ONE; +SODIUM CHLORIDE IVPB ONE
[2019-08-24] MEDS ORDERED: BEVACIZUMAB AWWB IVPB ONE (11:30)
[2019-08-24] MEDS ORDERED: SODIUM CHLORIDE IVPB ONE (11:30)
[2019-08-24 11:55] LABS: BASO % 0.4 % (0-2.0); EOS % 1.7 % (0-4.5); HEMATOCRIT 33.2 % (32.4-45.2); HEMOGLOBIN 10.9 GM/dL (10.7-15.3); LYMPH % 22.6 % (8-40); MCH 25.5 pg (25.7-33.7); MCHC 32.7 g/dl (32.0-36.0); MEAN PLT VOLUME 6.3 fl (7.5-11.1); MONO % 9.2 % (3.8-10.2); NEUT % 66.1 % (42.8-82.8); PLATELET COUNT 440 K/MM3 (134-434); RBC 4.26 M/mm3 (3.60-5.2); RDW 20.3 % (11.6-15.6); WHITE BLOOD COUNT 10.4 K/mm3 (4.0-10.0)
[2019-08-24 12:26] LABS: ALBUMIN 3.3 g/dl (3.4-5.0); BLOOD UREA NITROGEN 20.7 mg/dL (7-18); CALCIUM 8.6 mg/dL (8.5-10.1); CREATININE 0.9 mg/dL (0.55-1.3); TOT PROT 6.7 g/dl (6.4-8.2)
[2019-08-24 18:06] VITALS: TEMP 98.2
[2019-08-24] MEDS ORDERED: PORTA CATH FLUSH 10 ML IVPUSH ONE (18:15)
[2019-08-24 18:18] VITALS: BP 128/77; PULSE 88
[2019-08-24 18:29] LABS: URINE APPEARANCE CLEAR; URINE BILIRUBIN NEGATIVE (NEGATIVE); URINE COLOR YELLOW; URINE GLUCOSE (UA) NEGATIVE (NEGATIVE); URINE KETONE NEGATIVE (NEGATIVE); URINE LEUK ESTERASE NEGATIVE (NEGATIVE); URINE NITRITE NEGATIVE (NEGATIVE); URINE PROTEIN NEGATIVE (NEGATIVE); URINE UROBILINOGEN 0.2 mg/dL (0.2-1.0)
== END 2019-08-24 17:35 | disposition home or self-care (01) ==
LOC: JONCCHEMO 10:38 → J7W 12:48 → JONCCHEMO 17:35
PROVIDERS: ATTEND Internal Medicine Hematology & Oncology
PROC: 3E04305 Introduction of Other Antineoplastic into Central Vein, Percutaneous Approach (ICD-10-PCS; principal; 2019-08-24)
PROC: 3E043GC Introduction of Other Therapeutic Substance into Central Vein, Percutaneous Approach (ICD-10-PCS; 2019-08-24)
DX: Z51.11 Encounter for antineoplastic chemotherapy (principal); C17.0 Malignant neoplasm of duodenum; I10 Essential (primary) hypertension; E78.00 Pure hypercholesterolemia, unspecified
CPT/HCPCS: 36415; 80053; 81003; 85025; 96367; 96375; 96413; 96417; J1453; J2469; J9206; Q5107

== ENCOUNTER 2019-09-07 05:38 | Day surgery (SDC) | payer OTHER ==
[2019-09-07] MEDS ORDERED: FOSAPREPITANT DIMEGLUMINE 150 MG in SODIUM CHLORIDE 150 ML IVPB ONE (10:00)
[2019-09-07] MEDS ORDERED: DEXAMETHASONE SODIUM PHOSPHATE 10 MG in SODIUM CHLORIDE 50 ML IVPB ONE (10:00)
[2019-09-07] MEDS ORDERED: ATROPINE SO4 0.4 MG/1 ML VIAL IVPUSH ONE (10:00)
[2019-09-07] MEDS ORDERED: PALONOSETRON HCL 0.25 MG/5 ML VIAL IVPUSH ONE (10:00)
[2019-09-07] MEDS ORDERED: BEVACIZUMAB AWWB IVPB ONE (10:30)
[2019-09-07] MEDS ORDERED: SODIUM CHLORIDE IVPB ONE (10:30)
[2019-09-07] MEDS ORDERED: IRINOTECAN HCL 240 MG in DEXTROSE 5%-WATER - 500 ML IVPB ONE (11:00)
[2019-09-07 12:11] LABS: BASO % 0.3 % (0-2.0); EOS % 1.9 % (0-4.5); HEMATOCRIT 33.1 % (32.4-45.2); HEMOGLOBIN 10.7 GM/dL (10.7-15.3); LYMPH % 24.9 % (8-40); MCH 25.4 pg (25.7-33.7); MCHC 32.2 g/dl (32.0-36.0); MEAN CELL VOLUME 78.8 fl (80-96); MEAN PLT VOLUME 6.4 fl (7.5-11.1); MONO % 9.3 % (3.8-10.2); NEUT % 63.6 % (42.8-82.8); PLATELET COUNT 332 K/MM3 (134-434); RBC 4.19 M/mm3 (3.60-5.2); RDW 20.1 % (11.6-15.6); WHITE BLOOD COUNT 8.3 K/mm3 (4.0-10.0)
[2019-09-07 12:50] LABS: ALBUMIN 3.2 g/dl (3.4-5.0); BILIRUBIN,TOTAL 0.4 mg/dL (0.2-1); BLOOD UREA NITROGEN 22.8 mg/dL (7-18); CALCIUM 8.9 mg/dL (8.5-10.1); CREATININE 0.8 mg/dL (0.55-1.3); POTASSIUM 5.1 mmol/L (3.5-5.1); TOT PROT 6.6 g/dl (6.4-8.2)
[2019-09-07] MEDS ORDERED: DEXAMETHASONE SOD PHOSPHATE 20 MG/5 ML VIAL IVPB ONE (13:45)
[2019-09-07] MEDS ORDERED: ATENOLOL 25 MG TABLET (FP) PO ONE (14:00)
[2019-09-07 16:43] VITALS: TEMP 98.3
[2019-09-07] MEDS ORDERED: PORTA CATH FLUSH 10 ML IVPUSH ONE (17:35)
[2019-09-07 17:46] VITALS: BP 156/84; PULSE 87
== END 2019-09-07 17:46 | disposition home or self-care (01) ==
LOC: JONCCHEMO 05:38 → J7W 14:54 → JONCCHEMO 17:46
PROVIDERS: ATTEND Internal Medicine Hematology & Oncology
DX: Z51.11 Encounter for antineoplastic chemotherapy (principal); C17.0 Malignant neoplasm of duodenum
CPT/HCPCS: 36415; 80053; 82378; 83930; 85025; 96367; 96375; 96413; 96417; J1453; J2469; J9206; Q5107

== ENCOUNTER 2019-09-21 07:20 | Day surgery (SDC) | payer OTHER ==
[2019-09-21 10:58] LABS: BASO % 0.4 % (0-2.0); EOS % 1.6 % (0-4.5); HEMATOCRIT 31.4 % (32.4-45.2); LYMPH % 27.5 % (8-40); MCH 25.3 pg (25.7-33.7); MEAN CELL VOLUME 79.2 fl (80-96); MEAN PLT VOLUME 6.3 fl (7.5-11.1); NEUT % 60.5 % (42.8-82.8); PLATELET COUNT 352 K/MM3 (134-434); RBC 3.97 M/mm3 (3.60-5.2); RDW 20.3 % (11.6-15.6); WHITE BLOOD COUNT 6.8 K/mm3 (4.0-10.0)
[2019-09-21 11:31] LABS: BILIRUBIN,TOTAL 0.1 mg/dL (0.2-1); BLOOD UREA NITROGEN 18.3 mg/dL (7-18); CALCIUM 8.7 mg/dL (8.5-10.1); CREATININE 0.8 mg/dL (0.55-1.3); MAGNESIUM 2.1 mg/dL (1.8-2.4); POTASSIUM 4.9 mmol/L (3.5-5.1); TOT PROT 6.1 g/dl (6.4-8.2)
[2019-09-21] MEDS ORDERED: PALONOSETRON HCL 0.25 MG/5 ML VIAL IVPUSH ONE (12:00)
[2019-09-21] MEDS ORDERED: SODIUM CHLORIDE IVPB ONE (12:45)
[2019-09-21] MEDS ORDERED: BEVACIZUMAB AWWB IVPB ONE (12:45)
[2019-09-21] MEDS ORDERED: DEXAMETHASONE INJECTION 10 MG in SODIUM CHLORIDE 50 ML IVPB ONE (13:00)
[2019-09-21] MEDS ORDERED: ATROPINE SO4 0.4 MG/1 ML VIAL IVPUSH ONE (13:00)
[2019-09-21] MEDS ORDERED: FOSAPREPITANT DIMEGLUMINE 150 MG in SODIUM CHLORIDE 145 ML IVPB ONE (13:00)
[2019-09-21] MEDS ORDERED: DEXAMETHASONE SOD PHOSPHATE 10 MG/1 ML VIAL IVPB ONE (13:00)
[2019-09-21] MEDS ORDERED: IRINOTECAN HCL 240 MG in DEXTROSE 5%-WATER - 500 ML IVPB ONE (13:30)
[2019-09-21 18:55] VITALS: BP 166/86; PULSE 66
[2019-09-21] MEDS ORDERED: PORTA CATH FLUSH 10 ML IVPUSH ONE (18:55)
[2019-09-21 18:57] VITALS: TEMP 98.3
== END 2019-09-21 17:05 | disposition home or self-care (01) ==
LOC: JONCCHEMO 07:20 → J7W 11:56 → JONCCHEMO 17:05
PROVIDERS: ATTEND Internal Medicine Hematology & Oncology
DX: Z51.11 Encounter for antineoplastic chemotherapy (principal); C17.0 Malignant neoplasm of duodenum
CPT/HCPCS: 36415; 80053; 83735; 85025; J1100; J1453; J2469; J9206; Q5107

== ENCOUNTER 2019-10-05 06:27 | Day surgery (SDC) | payer OTHER ==
[2019-10-05] MEDS ORDERED: DEXAMETHASONE SODIUM PHOSPHATE 10 MG in SODIUM CHLORIDE 50 ML IVPB ONE (09:30)
[2019-10-05] MEDS ORDERED: FOSAPREPITANT DIMEGLUMINE 150 MG in SODIUM CHLORIDE 145 ML IVPB ONE (09:30)
[2019-10-05] MEDS ORDERED: PALONOSETRON HCL 0.25 MG/5 ML VIAL IVPUSH ONE (09:30)
[2019-10-05] MEDS ORDERED: ATROPINE SULFATE 1 MG/10 ML DISP.SYRIN IVPUSH ONE (09:30)
[2019-10-05] MEDS ORDERED: IRINOTECAN HCL 240 MG in DEXTROSE 5%-WATER - 500 ML IVPB ONE (10:00)
[2019-10-05] MEDS ORDERED: SODIUM CHLORIDE IVPB ONE (11:30)
[2019-10-05] MEDS ORDERED: BEVACIZUMAB AWWB IVPB ONE (11:30)
[2019-10-05 11:50] LABS: BASO % 0.5 % (0-2.0); EOS % 0.7 % (0-4.5); HEMATOCRIT 32.9 % (32.4-45.2); HEMOGLOBIN 10.5 GM/dL (10.7-15.3); MCH 25.2 pg (25.7-33.7); MCHC 31.9 g/dl (32.0-36.0); MEAN CELL VOLUME 78.9 fl (80-96); MEAN PLT VOLUME 6.8 fl (7.5-11.1); MONO % 6.6 % (3.8-10.2); NEUT % 76.2 % (42.8-82.8); PLATELET COUNT 370 K/MM3 (134-434); RBC 4.17 M/mm3 (3.60-5.2); RDW 20.1 % (11.6-15.6); WHITE BLOOD COUNT 11.2 K/mm3 (4.0-10.0)
[2019-10-05 12:21] LABS: ALBUMIN 3.3 g/dl (3.4-5.0); BILIRUBIN,TOTAL 0.3 mg/dL (0.2-1); BLOOD UREA NITROGEN 17.6 mg/dL (7-18); CALCIUM 8.5 mg/dL (8.5-10.1); CREATININE 0.8 mg/dL (0.55-1.3); POTASSIUM 4.8 mmol/L (3.5-5.1); TOT PROT 6.8 g/dl (6.4-8.2)
[2019-10-05] MEDS ORDERED: CLINDAMYCIN HCL 150 MG CAPSULE (FP) PO ONE (15:00)
[2019-10-05 17:10] VITALS: BP 147/74; PULSE 67; TEMP 98.3
== END 2019-10-05 17:15 | disposition home or self-care (01) ==
LOC: JONCCHEMO 06:27 → J7W 13:57 → JONCCHEMO 17:15
PROVIDERS: ATTEND Internal Medicine Hematology & Oncology
DX: Z51.11 Encounter for antineoplastic chemotherapy (principal); C17.0 Malignant neoplasm of duodenum
CPT/HCPCS: 36415; 80053; 85025; 96367; 96375; 96413; 96417; J1453; J2469; J9206; Q5107

== ENCOUNTER 2020-01-03 11:32 | Inpatient (IN) | payer OTHER ==
[2020-01-03 12:55] LABS: BASO % 0.3 % (0-2.0); EOS % 1.5 % (0-4.5); HEMATOCRIT 32.4 % (32.4-45.2); HEMOGLOBIN 10.4 GM/dL (10.7-15.3); MCH 25.4 pg (25.7-33.7); MEAN CELL VOLUME 79.4 fl (80-96); MEAN PLT VOLUME 6.1 fl (7.5-11.1); NEUT % 81.2 % (42.8-82.8); PLATELET COUNT 331 K/MM3 (134-434); RBC 4.08 M/mm3 (3.60-5.2); RDW 17.9 % (11.6-15.6); WHITE BLOOD COUNT 7.6 K/mm3 (4.0-10.0)
[2020-01-03 13:10] LABS: INR 0.97 (0.83-1.09); PROTHROMBIN TIME (PATIENT) 11.4 SEC (9.7-13.0)
[2020-01-03 13:32] LABS: ALK PHOS 79 U/L (45-117); ANION GAP 7 MMOL/L (8-16); BILIRUBIN,TOTAL 0.2 mg/dL (0.2-1); CHLORIDE 97 mmol/L (98-107); CO2 24 mmol/L (21-32); CREATININE 0.9 mg/dL (0.55-1.3); GLUCOSE,RANDOM 126 mg/dL (74-106); N-TERMINAL BNP 131.6 pg/ml (5-125); PHOSPHOROUS 3.9 mg/dL (2.5-4.9); POTASSIUM 5.5 mmol/L (3.5-5.1); SGOT/AST 11 U/L (15-37); SGPT/ALT 17 U/L (13-61); SODIUM 128 mmol/L (136-145); TOT PROT 6.2 g/dl (6.4-8.2); URIC ACID 5.5 mg/dL (2.6-7.2)
[2020-01-03] MEDS: SODIUM CHLORIDE 1,000 ML IV SCH (14:10)
[2020-01-03 23:16] VITALS: BMI 19.3
[2020-01-04 07:58] LABS: HEMATOCRIT 28.3 % (32.4-45.2); HEMOGLOBIN 9.3 GM/dL (10.7-15.3); MCHC 32.7 g/dl (32.0-36.0); MEAN CELL VOLUME 79.5 fl (80-96); MEAN PLT VOLUME 6.1 fl (7.5-11.1); PLATELET COUNT 286 K/MM3 (134-434); RBC 3.56 M/mm3 (3.60-5.2); RDW 18.1 % (11.6-15.6); WHITE BLOOD COUNT 3.9 K/mm3 (4.0-10.0)
[2020-01-04 08:20] LABS: ALBUMIN 2.7 g/dl (3.4-5.0); BILIRUBIN,TOTAL 0.2 mg/dL (0.2-1); CALCIUM 8.4 mg/dL (8.5-10.1); CREATININE 0.8 mg/dL (0.55-1.3); POTASSIUM 5.3 mmol/L (3.5-5.1); TOT PROT 5.5 g/dl (6.4-8.2)
[2020-01-04] MEDS: PANTOPRAZOLE 40 MG TABLET PO SCH (10:00)
[2020-01-04] MEDS: amLODIPine BESYLATE 10 MG TABLET (FP) PO SCH (10:00)
[2020-01-04] MEDS: VALSARTAN 160 MG TABLET PO SCH (10:02)
[2020-01-04] MEDS: ATENOLOL 50 MG TABLET (FP) PO SCH ×2 (10:34→17:15)
[2020-01-04] MEDS: SODIUM CHLORIDE 1,000 ML IV SCH (17:49)
[2020-01-05] MEDS: LEVOTHYROXINE NA 25 MCG TABLET (FP) PO SCH (06:12)
[2020-01-05] MEDS: amLODIPine BESYLATE 10 MG TABLET (FP) PO SCH (09:01)
[2020-01-05] MEDS: PANTOPRAZOLE 40 MG TABLET PO SCH (09:01)
[2020-01-05] MEDS: VALSARTAN 160 MG TABLET PO SCH (09:01)
[2020-01-05] MEDS: SODIUM CHLORIDE 1,000 ML IV SCH (17:00)
[2020-01-05] MEDS: ATENOLOL 50 MG TABLET (FP) PO SCH (17:49)
[2020-01-06 03:38] VITALS: TEMP 98
[2020-01-06] MEDS: LEVOTHYROXINE NA 25 MCG TABLET (FP) PO SCH (06:11)
[2020-01-06] MEDS: PANTOPRAZOLE 40 MG TABLET PO SCH (09:45)
[2020-01-06] MEDS: amLODIPine BESYLATE 10 MG TABLET (FP) PO SCH (09:45)
[2020-01-06] MEDS: VALSARTAN 160 MG TABLET PO SCH (09:45)
[2020-01-06] MEDS: ATENOLOL 50 MG TABLET (FP) PO SCH (09:48)
[2020-01-06 10:18] VITALS: BP 145/72; PULSE 66
[2020-01-06 10:52] LABS: URINE APPEARANCE CLEAR; URINE BILIRUBIN NEGATIVE (NEGATIVE); URINE COLOR YELLOW; URINE GLUCOSE (UA) NEGATIVE (NEGATIVE); URINE KETONE NEGATIVE (NEGATIVE); URINE LEUK ESTERASE NEGATIVE (NEGATIVE); URINE NITRITE NEGATIVE (NEGATIVE); URINE PROTEIN NEGATIVE (NEGATIVE); URINE UROBILINOGEN 0.2 mg/dL (0.2-1.0)
== END 2020-01-06 11:16 | disposition home or self-care (01) | DRG 312 ==
LOC: JER 11:32 → SUPCPDRO 11:32 → JERBED 14:05 → J4W 21:52
PROVIDERS: ADMIT Internal Medicine; ATTEND Internal Medicine
DX: R55 Syncope and collapse (principal); C17.0 Malignant neoplasm of duodenum; E87.1 Hypo-osmolality and hyponatremia; R56.9 Unspecified convulsions; I10 Essential (primary) hypertension; E78.5 Hyperlipidemia, unspecified; Z88.0 Allergy status to penicillin; E03.9 Hypothyroidism, unspecified; E87.5 Hyperkalemia
CPT/HCPCS: 36415; 70450-TC; 70552-TC; 71045-TC-FY; 80053; 81003; 82550; 82962; 83735; 83880; 84100; 84443; 84484; 84550; 85025; 85027; 85610; 87040; 87086; 93005; 93010; 99285-25; A9579; U0003

== ENCOUNTER 2020-01-11 05:31 | Day surgery (SDC) | payer OTHER ==
[2020-01-11] MEDS ORDERED: PALONOSETRON HCL 0.25 MG/5 ML VIAL IVPUSH ONE (10:00)
[2020-01-11] MEDS ORDERED: DEXAMETHASONE SODIUM PHOSPHATE 10 MG in SODIUM CHLORIDE 50 ML IVPB ONE (10:00)
[2020-01-11] MEDS ORDERED: ATROPINE SO4 0.4 MG/1 ML VIAL IVPUSH ONE (10:00)
[2020-01-11] MEDS ORDERED: FOSAPREPITANT DIMEGLUMINE 150 MG in SODIUM CHLORIDE 150 ML IVPB ONE (10:00)
[2020-01-11] MEDS ORDERED: SODIUM CHLORIDE IVPB ONE (10:30)
[2020-01-11] MEDS ORDERED: BEVACIZUMAB AWWB IVPB ONE (10:30)
[2020-01-11] MEDS ORDERED: IRINOTECAN HCL 240 MG in DEXTROSE 5%-WATER - 500 ML IVPB ONE (11:00)
[2020-01-11 12:30] LABS: BASO % 0.6 % (0-2.0); EOS % 2.6 % (0-4.5); HEMATOCRIT 29.5 % (32.4-45.2); HEMOGLOBIN 9.6 GM/dL (10.7-15.3); LYMPH % 22.5 % (8-40); MCH 26.2 pg (25.7-33.7); MCHC 32.7 g/dl (32.0-36.0); MEAN CELL VOLUME 80.2 fl (80-96); MEAN PLT VOLUME 6.8 fl (7.5-11.1); MONO % 10.9 % (3.8-10.2); NEUT % 63.4 % (42.8-82.8); PLATELET COUNT 344 K/MM3 (134-434); RBC 3.68 M/mm3 (3.60-5.2); RDW 18.4 % (11.6-15.6); WHITE BLOOD COUNT 6.2 K/mm3 (4.0-10.0)
[2020-01-11 12:54] LABS: BILIRUBIN,DIRECT 0.1 mg/dL (0.0-0.2); BILIRUBIN,TOTAL 0.2 mg/dL (0.2-1); BLOOD UREA NITROGEN 15.7 mg/dL (7-18); CALCIUM 8.5 mg/dL (8.5-10.1); CREATININE 0.8 mg/dL (0.55-1.3); MAGNESIUM 2.1 mg/dL (1.8-2.4); POTASSIUM 4.5 mmol/L (3.5-5.1); TOT PROT 6.1 g/dl (6.4-8.2)
[2020-01-11 17:07] VITALS: BP 149/77; PULSE 65; TEMP 99.3
[2020-01-11] MEDS ORDERED: PORTA CATH FLUSH 10 ML IVPUSH ONE (17:07)
== END 2020-01-11 16:35 | disposition home or self-care (01) ==
LOC: JONCCHEMO 05:31
PROVIDERS: ATTEND Internal Medicine Hematology & Oncology
PROC: 3E04305 Introduction of Other Antineoplastic into Central Vein, Percutaneous Approach (ICD-10-PCS; principal; 2020-01-11)
PROC: 3E043GC Introduction of Other Therapeutic Substance into Central Vein, Percutaneous Approach (ICD-10-PCS; 2020-01-11)
DX: Z51.11 Encounter for antineoplastic chemotherapy (principal); C17.0 Malignant neoplasm of duodenum; I10 Essential (primary) hypertension; E78.00 Pure hypercholesterolemia, unspecified
CPT/HCPCS: 36415; 80048; 80076; 82533; 83735; 85025; 96367; 96375; 96413; 96417; J1453; J2469; J9206; Q5107

== ENCOUNTER 2020-01-25 07:13 | Day surgery (SDC) | payer OTHER ==
[2020-01-25 11:36] LABS: BASO % 0.5 % (0-2.0); EOS % 3.1 % (0-4.5); HEMOGLOBIN 9.5 GM/dL (10.7-15.3); LYMPH % 17.2 % (8-40); MCH 26.4 pg (25.7-33.7); MCHC 32.9 g/dl (32.0-36.0); MEAN CELL VOLUME 80.3 fl (80-96); MEAN PLT VOLUME 6.1 fl (7.5-11.1); MONO % 11.1 % (3.8-10.2); NEUT % 68.1 % (42.8-82.8); PLATELET COUNT 349 K/MM3 (134-434); RBC 3.61 M/mm3 (3.60-5.2); RDW 18.6 % (11.6-15.6); WHITE BLOOD COUNT 6.5 K/mm3 (4.0-10.0)
[2020-01-25] MEDS ORDERED: PALONOSETRON HCL 0.25 MG/5 ML VIAL IVPUSH ONE (12:00)
[2020-01-25] MEDS ORDERED: DEXAMETHASONE SODIUM PHOSPHATE 10 MG in SODIUM CHLORIDE 50 ML IVPB ONE (12:00)
[2020-01-25] MEDS ORDERED: FOSAPREPITANT DIMEGLUMINE 150 MG in SODIUM CHLORIDE 145 ML IVPB ONE (12:00)
[2020-01-25] MEDS ORDERED: ATROPINE SULFATE 1 MG/10 ML DISP.SYRIN IVPUSH ONE (12:00)
[2020-01-25] MEDS ORDERED: SODIUM CHLORIDE 500 ML IV STA (12:15)
[2020-01-25 12:25] LABS: BLOOD UREA NITROGEN 18.9 mg/dL (7-18); CREATININE 0.9 mg/dL (0.55-1.3)
[2020-01-25 12:26] LABS: ALBUMIN 2.9 g/dl (3.4-5.0); BILIRUBIN,TOTAL 0.2 mg/dL (0.2-1); POTASSIUM 4.1 mmol/L (3.5-5.1); TOT PROT 6.1 g/dl (6.4-8.2)
[2020-01-25] MEDS ORDERED: IRINOTECAN HCL 240 MG in DEXTROSE 5%-WATER - 500 ML IVPB ONE (12:30)
[2020-01-25] MEDS ORDERED: SODIUM CHLORIDE IV ONE (14:00)
[2020-01-25] MEDS ORDERED: BEVACIZUMAB IV ONE (14:00)
[2020-01-25] MEDS ORDERED: WATER IVPB ONE (14:15)
[2020-01-25] MEDS ORDERED: IRINOTECAN HCL IVPB ONE (14:15)
[2020-01-25] MEDS ORDERED: DEXTROSE 5% IVPB ONE (14:15)
[2020-01-25] MEDS ORDERED: SODIUM CHLORIDE IVPB ONE (15:00)
[2020-01-25] MEDS ORDERED: BEVACIZUMAB AWWB IVPB ONE (15:00)
[2020-01-25 18:03] VITALS: TEMP 98.6
[2020-01-25] MEDS ORDERED: PORTA CATH FLUSH 10 ML IVPUSH ONE (18:09)
[2020-01-25 18:20] VITALS: BP 148/76; PULSE 60
== END 2020-01-25 18:23 | disposition home or self-care (01) ==
LOC: JONCCHEMO 07:13
PROVIDERS: ATTEND Internal Medicine Hematology & Oncology
DX: Z51.11 Encounter for antineoplastic chemotherapy (principal); C17.0 Malignant neoplasm of duodenum; I10 Essential (primary) hypertension; E78.00 Pure hypercholesterolemia, unspecified
CPT/HCPCS: 36415; 80053; 83935; 84300; 85025; 96361; 96375; 96413; 96417; J1453; J2469; J9206; Q5107

== ENCOUNTER 2020-02-15 07:14 | Day surgery (SDC) | payer OTHER ==
[2020-02-15 10:37] LABS: BASO % 0.4 % (0-2.0); EOS % 1.9 % (0-4.5); HEMATOCRIT 31.5 % (32.4-45.2); HEMOGLOBIN 10.1 GM/dL (10.7-15.3); LYMPH % 18.1 % (8-40); MEAN CELL VOLUME 81.3 fl (80-96); MEAN PLT VOLUME 6.5 fl (7.5-11.1); MONO % 7.7 % (3.8-10.2); NEUT % 71.9 % (42.8-82.8); PLATELET COUNT 422 K/MM3 (134-434); RBC 3.88 M/mm3 (3.60-5.2); RDW 18.6 % (11.6-15.6)
[2020-02-15 11:20] LABS: ALBUMIN 3.3 g/dl (3.4-5.0); BILIRUBIN,TOTAL 0.4 mg/dL (0.2-1); BLOOD UREA NITROGEN 19.6 mg/dL (7-18); POTASSIUM 4.4 mmol/L (3.5-5.1)
[2020-02-15 11:23] LABS: CALCIUM 9.2 mg/dL (8.5-10.1); TOT PROT 6.5 g/dl (6.4-8.2)
[2020-02-15 11:37] LABS: MAGNESIUM 2.2 mg/dL (1.8-2.4)
[2020-02-15] MEDS ORDERED: PALONOSETRON HCL 0.25 MG/5 ML VIAL IVPUSH ONE (12:30)
[2020-02-15] MEDS ORDERED: DEXAMETHASONE SODIUM PHOSPHATE 10 MG in SODIUM CHLORIDE 50 ML IVPB ONE (12:30)
[2020-02-15] MEDS ORDERED: ATROPINE SO4 0.4 MG/1 ML VIAL IVPUSH ONE (12:30)
[2020-02-15] MEDS ORDERED: FOSAPREPITANT DIMEGLUMINE 150 MG in SODIUM CHLORIDE 150 ML IVPB ONE (12:30)
[2020-02-15] MEDS ORDERED: SODIUM CHLORIDE IVPB ONE (13:00)
[2020-02-15] MEDS ORDERED: BEVACIZUMAB AWWB IVPB ONE (13:00)
[2020-02-15] MEDS ORDERED: IRINOTECAN HCL 240 MG in DEXTROSE 5%-WATER - 500 ML IVPB ONE (13:30)
[2020-02-15 17:46] VITALS: BP 152/74; PULSE 65; TEMP 98.9
[2020-02-15] MEDS ORDERED: PORTA CATH FLUSH 10 ML IVPUSH ONE (17:46)
== END 2020-02-15 16:05 | disposition home or self-care (01) ==
LOC: JONCCHEMO 07:14
PROVIDERS: ATTEND Internal Medicine Hematology & Oncology
PROC: 3E04305 Introduction of Other Antineoplastic into Central Vein, Percutaneous Approach (ICD-10-PCS; principal; 2020-02-15)
PROC: 3E043GC Introduction of Other Therapeutic Substance into Central Vein, Percutaneous Approach (ICD-10-PCS; 2020-02-15)
DX: Z51.11 Encounter for antineoplastic chemotherapy (principal); C17.0 Malignant neoplasm of duodenum; I10 Essential (primary) hypertension; E78.00 Pure hypercholesterolemia, unspecified
CPT/HCPCS: 36415; 80053; 82378; 83735; 85025; 96375; 96413; 96417; J1453; J2469; J9206; Q5107

== ENCOUNTER 2020-02-29 07:13 | Day surgery (SDC) | payer OTHER ==
[2020-02-29] MEDS ORDERED: PALONOSETRON HCL 0.25 MG/5 ML VIAL IVPUSH ONE (10:00)
[2020-02-29 10:10] LABS: BASO % 0.5 % (0-2.0); EOS % 2.2 % (0-4.5); HEMATOCRIT 30.5 % (32.4-45.2); LYMPH % 20.3 % (8-40); MCH 26.2 pg (25.7-33.7); MCHC 32.6 g/dl (32.0-36.0); MEAN CELL VOLUME 80.3 fl (80-96); MEAN PLT VOLUME 6.3 fl (7.5-11.1); MONO % 7.2 % (3.8-10.2); NEUT % 69.8 % (42.8-82.8); PLATELET COUNT 345 K/MM3 (134-434); RDW 18.8 % (11.6-15.6); WHITE BLOOD COUNT 7.9 K/mm3 (4.0-10.0)
[2020-02-29] MEDS ORDERED: DEXAMETHASONE INJECTION 10 MG in SODIUM CHLORIDE 50 ML IVPB ONE (10:30)
[2020-02-29] MEDS ORDERED: ATROPINE SO4 0.4 MG/1 ML VIAL IVPUSH ONE (10:30)
[2020-02-29] MEDS ORDERED: FOSAPREPITANT DIMEGLUMINE 150 MG in SODIUM CHLORIDE 145 ML IVPB ONE (10:30)
[2020-02-29 10:44] LABS: ALBUMIN 2.8 g/dl (3.4-5.0); BILIRUBIN,TOTAL 0.2 mg/dL (0.2-1); BLOOD UREA NITROGEN 15.1 mg/dL (7-18); CALCIUM 7.7 mg/dL (8.5-10.1); CREATININE 0.8 mg/dL (0.55-1.3); POTASSIUM 4.4 mmol/L (3.5-5.1); TOT PROT 5.7 g/dl (6.4-8.2)
[2020-02-29] MEDS ORDERED: IRINOTECAN HCL IVPB ONE (11:00)
[2020-02-29] MEDS ORDERED: WATER IVPB ONE (11:00)
[2020-02-29] MEDS ORDERED: DEXTROSE 5% IVPB ONE (11:00)
[2020-02-29] MEDS ORDERED: BEVACIZUMAB AWWB IVPB ONE (12:30)
[2020-02-29] MEDS ORDERED: SODIUM CHLORIDE IVPB ONE (12:30)
[2020-02-29 16:24] VITALS: TEMP 98.2
[2020-03-01 17:50] VITALS: BP 173/77; PULSE 80
== END 2020-02-29 16:20 | disposition home or self-care (01) ==
LOC: JONCCHEMO 07:13
PROVIDERS: ATTEND Internal Medicine Hematology & Oncology
DX: Z51.11 Encounter for antineoplastic chemotherapy (principal); C17.0 Malignant neoplasm of duodenum
CPT/HCPCS: 36415; 80053; 82378; 82565; 84156; 85025; 96367; 96375; 96413; 96417; J1100; J1453; J2469; J9206; Q5107

== ENCOUNTER 2020-03-14 07:13 | Day surgery (SDC) | payer OTHER ==
[2020-03-14] MEDS ORDERED: ATROPINE SULFATE 1 MG/10 ML DISP.SYRIN IVPUSH ONE (11:30)
[2020-03-14] MEDS ORDERED: FOSAPREPITANT DIMEGLUMINE 150 MG in SODIUM CHLORIDE 145 ML IVPB ONE (11:30)
[2020-03-14] MEDS ORDERED: DEXAMETHASONE SODIUM PHOSPHATE 10 MG in SODIUM CHLORIDE 50 ML IVPB ONE (11:30)
[2020-03-14] MEDS ORDERED: PALONOSETRON HCL 0.25 MG/5 ML VIAL IVPUSH ONE (11:30)
[2020-03-14] MEDS ORDERED: IRINOTECAN HCL 230 MG in DEXTROSE 5%-WATER - 500 ML IVPB ONE (12:00)
[2020-03-14 12:16] LABS: BASO % 0.4 % (0-2.0); EOS % 2.2 % (0-4.5); HEMATOCRIT 31.6 % (32.4-45.2); HEMOGLOBIN 10.2 GM/dL (10.7-15.3); LYMPH % 19.1 % (8-40); MCH 26.2 pg (25.7-33.7); MCHC 32.4 g/dl (32.0-36.0); MEAN CELL VOLUME 80.8 fl (80-96); MEAN PLT VOLUME 6.4 fl (7.5-11.1); MONO % 7.9 % (3.8-10.2); NEUT % 70.4 % (42.8-82.8); PLATELET COUNT 386 K/MM3 (134-434); RBC 3.91 M/mm3 (3.60-5.2); RDW 18.8 % (11.6-15.6); WHITE BLOOD COUNT 8.2 K/mm3 (4.0-10.0)
[2020-03-14 12:46] LABS: ALBUMIN 3.2 g/dl (3.4-5.0); BILIRUBIN,TOTAL 0.2 mg/dL (0.2-1); BLOOD UREA NITROGEN 24.3 mg/dL (7-18); CALCIUM 8.3 mg/dL (8.5-10.1); CREATININE 1.1 mg/dL (0.55-1.3); POTASSIUM 4.8 mmol/L (3.5-5.1); TOT PROT 6.5 g/dl (6.4-8.2)
[2020-03-14] MEDS ORDERED: BEVACIZUMAB IV ONE (13:30)
[2020-03-14] MEDS ORDERED: BEVACIZUMAB AWWB IVPB ONE (13:30)
[2020-03-14] MEDS ORDERED: SODIUM CHLORIDE IVPB ONE (13:30)
[2020-03-14] MEDS ORDERED: SODIUM CHLORIDE IV ONE (13:30)
[2020-03-14 17:24] VITALS: TEMP 98
[2020-03-14 17:25] VITALS: BP 152/67; PULSE 63
== END 2020-03-14 16:55 | disposition home or self-care (01) ==
LOC: JONCCHEMO 07:13
PROVIDERS: ATTEND Internal Medicine Hematology & Oncology
PROC: 3E04305 Introduction of Other Antineoplastic into Central Vein, Percutaneous Approach (ICD-10-PCS; principal; 2020-03-14)
PROC: 3E043GC Introduction of Other Therapeutic Substance into Central Vein, Percutaneous Approach (ICD-10-PCS; 2020-03-14)
DX: Z51.11 Encounter for antineoplastic chemotherapy (principal); C17.0 Malignant neoplasm of duodenum; I10 Essential (primary) hypertension; E78.00 Pure hypercholesterolemia, unspecified
CPT/HCPCS: 36415; 80053; 82378; 85025; 96367; 96375; 96413; 96417; J1453; J2469; J9206; Q5107

== ENCOUNTER 2020-03-28 07:16 | Day surgery (SDC) | payer OTHER ==
--- OUTSIDE RECORDS SUMMARY | 2020-03-28 07:20 | XMS ---
:1945 Author Organization [facility] Support Name Relationship Address Phone RE, RETIRED Unavailable Unavailable Unavailable RE Unavailable Unavailable Unavailable CHRISTINA LOPEZ [address] [place] [address] CHRISTINA LOPEZ Parent [address] [place] [address] Re-disclosure Warning The records that you are about to access may contain information from federally- assisted alcohol or drug abuse programs. If such information is present, then the following federally mandated warning applies: This information has been disclosed to you from records protected by federal confidentiality rules (42 CFR part 2). The federal rules prohibit you from making any further disclosure of this information unless further disclosure is expressly permitted by the written consent of the person to whom it pertains or as otherwise permitted by 42 CFR part 2. A general authorization for the release of medical or other information is NOT sufficient for this purpose. The Federal rules restrict any use of the information to criminally investigate or prosecute any alcohol or drug abuse patient.The records that you are about to access may contain highly sensitive health information, the redisclosure of which is protected by Article 27-F of the [facility] Public Health law. If you continue you may haveaccess to information: Regarding HIV / AIDS; Provided by facilities licensed or operated by the [facility] Office of Mental Health; or Provided by the [facility] Office for People With Developmental Disabilities. If such information is present, then the following [facility] mandated warning applies: This information has been disclosed to you from confidential records which are protected by state law. State law prohibits you from making any further disclosure of this information without the specific written consent of the person to whom it pertains, or as otherwise permitted by law. Any unauthorized further disclosure in violation of state law may result in a fine or [place] [facility] sentence or both. A general authorization for the release of medical or other information is NOT sufficient authorization for further disclosure. 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 ID Date Data Source [id number] 01/03/2020 08:35:00 PM EDT [facility] Name Value Range Interpretation Description Data Sup porting Code Source(s) Document(s ) SARS [facility] CORONAVIRUS 2 RNA This lab was ordered by [facility] and reported by [facility]. Procedure
[2020-03-28 10:43] LABS: BASO % 0.5 % (0-2.0); EOS % 3.6 % (0-4.5); HEMATOCRIT 28.3 % (32.4-45.2); HEMOGLOBIN 9.3 GM/dL (10.7-15.3); LYMPH % 17.5 % (8-40); MCH 26.4 pg (25.7-33.7); MCHC 32.7 g/dl (32.0-36.0); MEAN CELL VOLUME 80.6 fl (80-96); MEAN PLT VOLUME 5.9 fl (7.5-11.1); MONO % 8.7 % (3.8-10.2); NEUT % 69.7 % (42.8-82.8); PLATELET COUNT 311 K/MM3 (134-434); RBC 3.52 M/mm3 (3.60-5.2); RDW 19.2 % (11.6-15.6); WHITE BLOOD COUNT 6.2 K/mm3 (4.0-10.0)
[2020-03-28] MEDS ORDERED: DEXAMETHASONE INJECTION 10 MG in SODIUM CHLORIDE 50 ML IVPB ONE (11:00)
[2020-03-28] MEDS ORDERED: FOSAPREPITANT DIMEGLUMINE 150 MG in SODIUM CHLORIDE 145 ML IVPB ONE (11:00)
[2020-03-28] MEDS ORDERED: ATROPINE SO4 0.4 MG/1 ML VIAL IVPUSH ONE (11:00)
[2020-03-28] MEDS ORDERED: PALONOSETRON HCL 0.25 MG/5 ML VIAL IVPUSH ONE (11:00)
[2020-03-28 11:21] LABS: ALBUMIN 2.9 g/dl (3.4-5.0); BILIRUBIN,TOTAL 0.2 mg/dL (0.2-1); BLOOD UREA NITROGEN 24.6 mg/dL (7-18); CALCIUM 8.2 mg/dL (8.5-10.1); CREATININE 0.9 mg/dL (0.55-1.3)
[2020-03-28] MEDS ORDERED: IRINOTECAN HCL 230 MG in DEXTROSE 5%-WATER - 500 ML IVPB ONE (11:30)
[2020-03-28] MEDS ORDERED: SODIUM CHLORIDE IVPB ONE (13:00)
[2020-03-28] MEDS ORDERED: BEVACIZUMAB AWWB IVPB ONE (13:00)
[2020-03-28 17:57] LABS: PH,URINE 5.5 (5.0-8.0); URINE APPEARANCE CLEAR; URINE BILIRUBIN NEGATIVE (NEGATIVE); URINE COLOR YELLOW; URINE GLUCOSE (UA) TRACE (NEGATIVE); URINE KETONE NEGATIVE (NEGATIVE); URINE LEUK ESTERASE NEGATIVE (NEGATIVE); URINE NITRITE NEGATIVE (NEGATIVE); URINE PROTEIN TRACE (NEGATIVE); URINE UROBILINOGEN 0.2 mg/dL (0.2-1.0)
[2020-03-28 18:15] VITALS: TEMP 98.6
[2020-03-28 18:26] VITALS: BP 159/82; PULSE 76
[2020-03-28] MEDS ORDERED: PORTA CATH FLUSH 10 ML IVPUSH ONE (18:26)
== END 2020-03-28 16:30 | disposition home or self-care (01) ==
LOC: JONCCHEMO 07:16
PROVIDERS: ATTEND Internal Medicine Hematology & Oncology
DX: Z12.11 Encounter for screening for malignant neoplasm of colon (principal); C17.0 Malignant neoplasm of duodenum
CPT/HCPCS: 36415; 80053; 81003; 85025; 96367; 96375; 96413; 96417; J1100; J1453; J2469; J9206; Q5107

== ENCOUNTER 2020-04-11 07:19 | Day surgery (SDC) | payer OTHER ==
--- OUTSIDE RECORDS SUMMARY | 2020-04-11 07:25 | XMS ---
:1945 Author Organization [facility] Support Name Relationship Address Phone RE, RETIRED Unavailable Unavailable Unavailable RE Unavailable Unavailable Unavailable CHRISTINA LOPEZ [address] [place] [place] [address] CHRISTINA LOPEZ Parent [address] [place] [address] Re-disclosure Warning The records that you are [...] is protected by Article 27-F of the [facility] Public Health law. If you continue you may haveaccess to information: Regarding HIV / AIDS; Provided by facilities licensed or operated by the [facility] Office of Mental Health; or Provided by the [facility] Office for People With Developmental Disabilities. If such information is present, then the following [facility] mandated warning applies: This information has been [...] law may result in a fine or [facility] sentence or both. A general authorization for the release of medical or other information is NOT sufficient authorization for further disclosure. 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 ID Date Data Source [id number] 01/03/2020 08:35:00 PM EDT [facility] Name Value Range Interpretation Description Data Sup porting Code Source(s) Document(s ) SARS [facility] CORONAVIRUS 2 RNA This lab was ordered by [facility] and reported by [facility]. Procedure
[2020-04-11] MEDS ORDERED: FOSAPREPITANT DIMEGLUMINE 150 MG in SODIUM CHLORIDE 150 ML IVPB ONE (10:00)
[2020-04-11] MEDS ORDERED: ATROPINE SO4 0.4 MG/1 ML VIAL IVPUSH ONE (10:00)
[2020-04-11] MEDS ORDERED: DEXAMETHASONE SODIUM PHOSPHATE 10 MG in SODIUM CHLORIDE 50 ML IVPB ONE (10:00)
[2020-04-11] MEDS ORDERED: PALONOSETRON HCL 0.25 MG/5 ML VIAL IVPUSH ONE (10:00)
[2020-04-11] MEDS ORDERED: BEVACIZUMAB AWWB IVPB ONE (10:30)
[2020-04-11] MEDS ORDERED: SODIUM CHLORIDE IVPB ONE (10:30)
[2020-04-11] MEDS ORDERED: IRINOTECAN HCL 230 MG in DEXTROSE 5%-WATER - 500 ML IVPB ONE (11:00)
[2020-04-11 11:52] LABS: BASO % 0.2 % (0-2.0); EOS % 2.8 % (0-4.5); HEMATOCRIT 28.3 % (32.4-45.2); HEMOGLOBIN 9.2 GM/dL (10.7-15.3); LYMPH % 18.2 % (8-40); MCH 25.8 pg (25.7-33.7); MCHC 32.5 g/dl (32.0-36.0); MEAN CELL VOLUME 79.4 fl (80-96); MEAN PLT VOLUME 5.9 fl (7.5-11.1); MONO % 10.3 % (3.8-10.2); NEUT % 68.5 % (42.8-82.8); PLATELET COUNT 315 K/MM3 (134-434); RBC 3.57 M/mm3 (3.60-5.2); RDW 19.3 % (11.6-15.6); WHITE BLOOD COUNT 7.2 K/mm3 (4.0-10.0)
[2020-04-11 12:21] LABS: ALBUMIN 2.9 g/dl (3.4-5.0); BILIRUBIN,TOTAL 0.2 mg/dL (0.2-1); BLOOD UREA NITROGEN 25.7 mg/dL (7-18); CALCIUM 8.2 mg/dL (8.5-10.1); CREATININE 0.9 mg/dL (0.55-1.3); POTASSIUM 5.3 mmol/L (3.5-5.1)
[2020-04-11 14:14] VITALS: TEMP 97.8
[2020-04-11] MEDS ORDERED: PORTA CATH FLUSH 10 ML IVPUSH ONE (14:17)
[2020-04-11] MEDS ORDERED: SODIUM CHLORIDE 1,000 ML IV ONE (15:00)
[2020-04-11 18:41] VITALS: BP 179/87; PULSE 75
== END 2020-04-11 18:40 | disposition home or self-care (01) ==
LOC: JONCCHEMO 07:19
PROVIDERS: ATTEND Internal Medicine Hematology & Oncology
DX: Z51.11 Encounter for antineoplastic chemotherapy (principal); C17.0 Malignant neoplasm of duodenum
CPT/HCPCS: 36415; 80053; 82378; 83735; 85025; 96361; 96367; 96375; 96413; 96415; 96417; J1453; J2469; J9206; Q5107

== ENCOUNTER 2020-04-16 17:29 | Emergency (ER) | payer OTHER ==
--- NOTE | 2020-04-16 19:06 | PDOC ---
History of Present Illness - General Chief Complaint: Abnormal Lab Results (Outside) Stated Complaint: SENT BY Time Seen by Provider: 04/16/20 19:03 Past History - Medical History Allergies/Adverse Reactions: Allergies Allergy/AdvReac Type Severity Reaction Status Date / Time furosemide [From Lasix] Allergy Severe Hives Verified 04/16/20 17:40 oxaliplatin Allergy Severe Hives Verified 04/16/20 17:40 Sulfa (Sulfonamide Allergy Verified 04/16/20 17:40 Antibiotics) Penicillins AdvReac Unknown "happened Verified 04/16/20 17:40 as a child-?reaction" Home Medications: Ambulatory Orders Atorvastatin Ca [Lipitor] 80 mg PO HS 03/31/17 Esomeprazole Mag Trihydrate [NexIUM for SUSP] 40 mg PO DAILY 03/31/17 Levothyroxine [Synthroid -] 25 mcg PO DAILY 03/31/17 Pyridoxine HCl (B-6) [Vitamin B6] 100 mg PO DAILY 03/24/18 Ondansetron HCl [Zofran] 4 mg PO ASDIR 03/16/19 Amlodipine Besylate/Valsartan [Amlodipine-Valsartan 10-160 mg] 1 tab PO HS 07/08/19 Ciprofloxacin [Cipro (Restricted To Id)] 500 mg PO Q12H #14 tablet 08/22/19 Amlodipine Besylate [Norvasc -] 10 mg PO DAILY tablet 01/06/20 Levothyroxine [Synthroid -] 25 mcg PO DAILY@0700 tablet 01/06/20 Pantoprazole Sodium [Protonix -] 40 mg PO DAILY tablet.ec 01/06/20 Atenolol [Tenormin -] 200 mg PO BID 03/28/20 Nifedipine [Nifedipine ER] 60 mg PO BID 03/28/20 Valsartan [Diovan] 320 mg PO DAILY 03/28/20 Labetalol HCl [Normodyne -] 200 mg PO BID 04/11/20 Spironolactone [Aldactone] 100 mg PO DAILY 04/11/20 Anemia: No Asthma: No Cancer: Yes (duodenal-receiving chemo, adenocarcimoma) Cardiac Disorders: No CVA: No COPD: No CHF: No Dementia: No Diabetes: No GI Disorders: No Disorders: No HTN: Yes Hypercholesterolemia: Yes Liver Disease: No Seizures: No Thyroid Disease: Yes - Psycho-Social/Smoking History Smoking History: Never smoked Have you smoked in the past 12 months: No - Substance Abuse Hx (Audit-C & DAST Scrn) How often the patient has a drink containing alcohol: Never Score: In Men: 4 or > Positive; In Women: 3 or > Positive: 0 Screen Result (Pos requires Nsg. Audit-10AR): Negative In the last yr the pt used illegal drug/Rx for NonMed reason: No Score: Yes response is considered Positive: 0 Screen Result (Positive result requires Nsg. 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 Johnson) sent by Dr Johnson and Dr Thomas (supervisor publications) for K 6.3. Pt denies any medical complaints. Pt took AM BP meds but not PM meds yet. Pt states eating milk, bread, eggs, soup; avoiding bananas. Hyperkalemic during last admission 12/30 as well. -CMP -EKG: NSR, 72bpm, normal axis, normal intervals, TWI in III, no ST elevations or depressions, no significant change from prior -Home BP meds: labetalol and nifedipine (usually takes at 7pm) 04/16/20 20:35 K 5.8 Hyponatremia chronic Anemia chronic Call placed to Dr Johnson 04/16/20 20:[address] Gomez for Dr Johnson - agree with plan to tx and f/u Discharge - Discharge Information Problems reviewed: Yes Clinical Impression/Diagnosis: Hyperkalemia Condition: Stable Disposition: HOME - Admission No - Follow up/Referral - Patient Discharge Instructions Patient Printed Discharge Instructions: DI for Hyperkalemia, Limiting Potassium in Your Diet, Low-Potassium Diet Additional Instructions: You have been seen in the Emergency Department for your high potassium. Your potassium is 5.8 so we gave you medications to lower it. Your EKG show no signs concerning for an emergent condition. Avoid potassium in your diet. Follow-up with your primary care doctor and Dr Johnson within 3 days. Return to the Emergency Department immediately if you experience chest pain, difficulty breathing, passing out, or any other new or worsening symptom. - Post Discharge Activity
[2020-04-16 19:07] VITALS: TEMP 98.6; BMI 22.6
--- NOTE | 2020-04-16 19:12 | PDOC ---
Attending Attestation - Resident Resident Name: Maddison Le - ED Attending Attestation I have performed the following: I have examined & evaluated the patient, The case was reviewed & discussed with the resident, I agree w/resident's findings & plan, Exceptions are as noted
[2020-04-16 19:47] LABS: BASO % 0.4 % (0-2.0); EOS % 2.8 % (0-4.5); HEMATOCRIT 30.2 % (32.4-45.2); HEMOGLOBIN 9.9 GM/dL (10.7-15.3); LYMPH % 21.1 % (8-40); MCH 26.1 pg (25.7-33.7); MCHC 32.7 g/dl (32.0-36.0); MONO % 4.2 % (3.8-10.2); NEUT % 71.5 % (42.8-82.8); PLATELET COUNT 293 K/MM3 (134-434); RBC 3.78 M/mm3 (3.60-5.2); RDW 18.6 % (11.6-15.6); WHITE BLOOD COUNT 7.3 K/mm3 (4.0-10.0)
[2020-04-16 20:30] LABS: ALBUMIN 3.2 g/dl (3.4-5.0); BILIRUBIN,TOTAL 0.2 mg/dL (0.2-1); BLOOD UREA NITROGEN 30.2 mg/dL (7-18); CALCIUM 8.6 mg/dL (8.5-10.1); POTASSIUM 5.8 mmol/L (3.5-5.1); TOT PROT 6.6 g/dl (6.4-8.2)
[2020-04-16] MEDS ORDERED: INSULIN REGULAR HUMAN 100 UNITS/ML *VIAL IVPUSH ONE (20:58)
[2020-04-16] MEDS ORDERED: DEXTROSE 50%-WATER - 25 GM/50 ML VIAL IVPUSH ONE (20:58)
--- NOTE | 2020-04-16 20:59 | PDOC ---
Documentation entered by Vi Ford SCRIBE, acting as scribe for Leslie Zayas MD. Leslie Zayas MD: This documentation has been prepared by the Liliana benavides Brenda, SCRIBE, under my direction and personally reviewed by me in its entirety. I confirm that the documentation accurately reflects all work, treatment, procedures, and medical decision making performed by me. 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 The patient has no complaints. Dr. Oliver - Physicial Exam PE: 04/16/20 19:40 GENERAL: Well-appearing, well-nourished. No apparent distress. HEENT: Normocephalic, atraumatic. PERRL, EOM intact. CARDIOVASCULAR: Normal S1, S2. Regular rate and rhythm. PULMONARY: Clear to auscultation bilaterally. ABDOMEN: Soft, non-distended, non-tender. EXTREMITIES: Normal ROM in all four extremities. No gross deformities. SKIN: Warm, dry. No rash NEUROLOGICAL: No focal neurological deficits. - Medical Decision Making 04/16/20 20:42 k=5.8 04/16/20 20:57 pt received insulin and dextrose to decrease the potassium she will follow up with her oncologist, Dr Natalie Orr ekg did not show hyperacute t waves Discharge - Discharge Information Problems reviewed: Yes Clinical Impression/Diagnosis: Hyperkalemia Condition: Stable Disposition: HOME - Follow up/Referral - Patient Discharge Instructions Patient Printed Discharge Instructions: Limiting Potassium in Your Diet, DI for Hyperkalemia, Low-Potassium Diet Additional Instructions: You have been seen in the Emergency Department for your high potassium. Your potassium is 5.8 so we gave you medications to lower it. Your EKG show no signs concerning for an emergent condition. Avoid potassium in your diet. Follow-up with your primary care doctor and Dr Johnson within 3 days. Return to the Emergency Department immediately if you experience chest pain, difficulty breathing, passing out, or any other new or worsening symptom. - Post Discharge Activity
[2020-04-16] MEDS ORDERED: DEXTROSE 50%-WATER - 25 GM/50 ML VIAL ONE (21:12)
[2020-04-16] MEDS ORDERED: DEXTROSE 50%-WATER 25 GM/50 ML DISP.SYRIN ONE ×2 (21:13→21:18)
[2020-04-16 22:15] VITALS: BP 136/73; PULSE 85
--- NOTE | 2020-04-17 09:54 | EKG ---
Test Reason : Blood Pressure : / mmHG Vent. Rate : 072 BPM Atrial Rate : 072 BPM P-R Int : 150 ms QRS Dur : 066 ms QT Int : 370 ms P-R-T Axes : 032 -25 025 degrees QTc Int : 405 ms NORMAL SINUS RHYTHM NORMAL ECG WHEN COMPARED WITH ECG OF 03-JAN-2020 12:46, PREMATURE ATRIAL COMPLEXES ARE NO LONGER PRESENT Confirmed by Ramirez Benton MD ([id number]) on 04/17/2020 9:53:43 AM Referred By: Confirmed By:Ramirez Benton MD
== END 2020-04-16 22:47 | disposition home or self-care (01) ==
LOC: JER 17:29
PROC: 3E013VG Introduction of Insulin into Subcutaneous Tissue, Percutaneous Approach (ICD-10-PCS; principal; 2020-04-16)
PROC: 3E033GC Introduction of Other Therapeutic Substance into Peripheral Vein, Percutaneous Approach (ICD-10-PCS; 2020-04-16)
DX: E87.5 Hyperkalemia (principal)
CPT/HCPCS: 36415; 80053; 82962; 85025; 93005; 93010; 99284-25

== ENCOUNTER 2020-04-25 06:45 | Day surgery (SDC) | payer OTHER ==
[2020-04-16 16:00] LABS: BLOOD UREA NITROGEN 28.8 mg/dL (7-18); CALCIUM 8.7 mg/dL (8.5-10.1)
[2020-04-16 16:07] LABS: POTASSIUM 6.3 mmol/L (3.5-5.1)
--- OUTSIDE RECORDS SUMMARY | 2020-04-25 06:49 | XMS ---
:1945 [facility] Support Name Relationship Address Phone RE, RETIRED Unavailable Unavailable Unavailable RE Unavailable Unavailable Unavailable CHRISTINA LOPEZ [address] [place] [address] CHRISTINA LOPEZ Spouse [address] [place] [address] Re-disclosure Warning The records that you are [...] is protected by Article 27-F of the [facility] Public Health law. If you continue you may haveaccess to information: Regarding HIV / AIDS; Provided by facilities licensed or operated by the [facility] Office of Mental Health; or Provided by the [facility] Office for People With Developmental Disabilities. If such information is present, then the following [facility] mandated warning applies: This information has [...] law may result in a fine or alf sentence or both. A general authorization for the release of medical or other information is NOT sufficient authorization for further disclosure. 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 ID Date Data Source [id number] 01/03/2020 08:35:00 PM EDT [facility] Name Value Range Interpretation Description Data Sup porting Code Source(s) Document(s ) SARS [facility] CORONAVIRUS 2 RNA This lab was ordered by [facility] and reported by [facility]. Procedure
[2020-04-25] MEDS ORDERED: ATROPINE SO4 0.4 MG/1 ML VIAL IVPUSH ONE (10:00)
[2020-04-25] MEDS ORDERED: PALONOSETRON HCL 0.25 MG/5 ML VIAL IVPUSH ONE (10:00)
[2020-04-25] MEDS ORDERED: FOSAPREPITANT DIMEGLUMINE 150 MG in SODIUM CHLORIDE 150 ML IVPB ONE (10:00)
[2020-04-25] MEDS ORDERED: DEXAMETHASONE SODIUM PHOSPHATE 10 MG in SODIUM CHLORIDE 50 ML IVPB ONE (10:00)
[2020-04-25] MEDS ORDERED: SODIUM CHLORIDE IVPB ONE (10:30)
[2020-04-25] MEDS ORDERED: BEVACIZUMAB AWWB IVPB ONE (10:30)
[2020-04-25 11:00] LABS: BASO % 0.3 % (0-2.0); EOS % 3.4 % (0-4.5); HEMATOCRIT 27.3 % (32.4-45.2); LYMPH % 16.2 % (8-40); MCH 26.3 pg (25.7-33.7); MCHC 32.8 g/dl (32.0-36.0); MEAN CELL VOLUME 80.3 fl (80-96); MONO % 9.1 % (3.8-10.2); PLATELET COUNT 306 K/MM3 (134-434); RDW 19.2 % (11.6-15.6); WHITE BLOOD COUNT 8.3 K/mm3 (4.0-10.0)
[2020-04-25] MEDS ORDERED: IRINOTECAN HCL 230 MG in DEXTROSE 5%-WATER - 500 ML IVPB ONE (11:00)
[2020-04-25 11:02] LABS: MEAN PLT VOLUME 5.8 fl (7.5-11.1)
[2020-04-25 11:26] LABS: ALBUMIN 2.9 g/dl (3.4-5.0); BILIRUBIN,TOTAL 0.1 mg/dL (0.2-1); BLOOD UREA NITROGEN 29.9 mg/dL (7-18); CALCIUM 8.3 mg/dL (8.5-10.1); CREATININE 0.8 mg/dL (0.55-1.3)
[2020-04-25 17:40] VITALS: TEMP 98.1
[2020-04-25 17:51] VITALS: BP 141/75; PULSE 76
[2020-04-25] MEDS ORDERED: PORTA CATH FLUSH 10 ML IVPUSH ONE (17:51)
== END 2020-04-25 17:45 | disposition home or self-care (01) ==
LOC: JONCCHEMO 06:45
PROVIDERS: ATTEND Internal Medicine Hematology & Oncology
PROC: 3E04305 Introduction of Other Antineoplastic into Central Vein, Percutaneous Approach (ICD-10-PCS; principal; 2020-04-25)
PROC: 3E043GC Introduction of Other Therapeutic Substance into Central Vein, Percutaneous Approach (ICD-10-PCS; 2020-04-25)
DX: Z51.11 Encounter for antineoplastic chemotherapy (principal); C17.0 Malignant neoplasm of duodenum; I10 Essential (primary) hypertension; E78.5 Hyperlipidemia, unspecified
CPT/HCPCS: 36415; 80048; 80053; 82565; 84156; 85025; 96367; 96375; 96413; 96417; J1453; J2469; J9206; Q5107

== ENCOUNTER 2020-05-23 07:16 | Day surgery (SDC) | payer OTHER ==
[2020-05-23] MEDS ORDERED: ATROPINE SULFATE 1 MG/10 ML DISP.SYRIN IVPUSH ONE (09:30)
[2020-05-23] MEDS ORDERED: DEXAMETHASONE SODIUM PHOSPHATE 10 MG in SODIUM CHLORIDE 50 ML IVPB ONE (09:30)
[2020-05-23] MEDS ORDERED: FOSAPREPITANT DIMEGLUMINE 150 MG in SODIUM CHLORIDE 145 ML IVPB ONE (09:30)
[2020-05-23] MEDS ORDERED: PALONOSETRON HCL 0.25 MG/5 ML VIAL IVPUSH ONE (09:30)
[2020-05-23] MEDS ORDERED: IRINOTECAN HCL 230 MG in DEXTROSE 5%-WATER - 500 ML IVPB ONE (10:00)
[2020-05-23 11:08] LABS: BASO % 0.5 % (0-2.0); EOS % 3.3 % (0-4.5); HEMATOCRIT 29.2 % (32.4-45.2); HEMOGLOBIN 9.4 GM/dL (10.7-15.3); LYMPH % 16.7 % (8-40); MCH 25.8 pg (25.7-33.7); MEAN CELL VOLUME 80.6 fl (80-96); MEAN PLT VOLUME 5.9 fl (7.5-11.1); MONO % 9.2 % (3.8-10.2); NEUT % 70.3 % (42.8-82.8); PLATELET COUNT 305 K/MM3 (134-434); RBC 3.62 M/mm3 (3.60-5.2); RDW 19.5 % (11.6-15.6); WHITE BLOOD COUNT 7.3 K/mm3 (4.0-10.0)
[2020-05-23 11:20] LABS: POTASSIUM 5.2 mmol/L (3.5-5.1)
[2020-05-23 11:24] LABS: CALCIUM 8.9 mg/dL (8.5-10.1)
[2020-05-23 11:28] LABS: CREATININE 1.1 mg/dL (0.55-1.3)
[2020-05-23 11:29] LABS: BILIRUBIN,TOTAL 0.3 mg/dL (0.2-1); TOT PROT 6.1 g/dl (6.4-8.2)
[2020-05-23] MEDS ORDERED: BEVACIZUMAB AWWB IVPB ONE (11:30)
[2020-05-23] MEDS ORDERED: SODIUM CHLORIDE IVPB ONE (11:30)
[2020-05-23 16:48] VITALS: TEMP 97.9
[2020-05-23 16:55] VITALS: BP 142/80; PULSE 72
[2020-05-23] MEDS ORDERED: PORTA CATH FLUSH 10 ML IVPUSH ONE (16:55)
== END 2020-05-23 17:16 | disposition home or self-care (01) ==
LOC: JONCCHEMO 07:16
PROVIDERS: ATTEND Internal Medicine Hematology & Oncology
DX: Z51.11 Encounter for antineoplastic chemotherapy (principal); C17.0 Malignant neoplasm of duodenum
CPT/HCPCS: 36415; 80053; 82378; 84156; 85025; 96375; 96413; 96417; J1453; J2469; J9206; Q5107

== ENCOUNTER 2020-06-06 06:12 | Day surgery (SDC) | payer OTHER ==
[2020-06-06] MEDS ORDERED: DEXAMETHASONE SODIUM PHOSPHATE 10 MG in SODIUM CHLORIDE 50 ML IVPB ONE (10:00)
[2020-06-06] MEDS ORDERED: PALONOSETRON HCL 0.25 MG/5 ML VIAL IVPUSH ONE (10:00)
[2020-06-06] MEDS ORDERED: ATROPINE SO4 0.4 MG/1 ML VIAL IVPUSH ONE (10:00)
[2020-06-06] MEDS ORDERED: FOSAPREPITANT DIMEGLUMINE 150 MG in SODIUM CHLORIDE 150 ML IVPB ONE (10:00)
[2020-06-06] MEDS ORDERED: SODIUM CHLORIDE IVPB ONE (10:30)
[2020-06-06] MEDS ORDERED: BEVACIZUMAB AWWB IVPB ONE (10:30)
[2020-06-06 11:00] LABS: BASO % 0.4 % (0-2.0); EOS % 2.5 % (0-4.5); HEMATOCRIT 30.7 % (32.4-45.2); HEMOGLOBIN 9.6 GM/dL (10.7-15.3); LYMPH % 15.8 % (8-40); MCH 25.2 pg (25.7-33.7); MCHC 31.4 g/dl (32.0-36.0); MEAN CELL VOLUME 80.2 fl (80-96); MONO % 8.7 % (3.8-10.2); NEUT % 72.6 % (42.8-82.8); PLATELET COUNT 326 K/MM3 (134-434); RBC 3.82 M/mm3 (3.60-5.2); RDW 19.8 % (11.6-15.6); WHITE BLOOD COUNT 8.5 K/mm3 (4.0-10.0)
[2020-06-06] MEDS ORDERED: IRINOTECAN HCL 230 MG in DEXTROSE 5%-WATER - 500 ML IVPB ONE (11:00)
[2020-06-06 11:02] LABS: MEAN PLT VOLUME 5.8 fl (7.5-11.1)
[2020-06-06 11:21] LABS: BLOOD UREA NITROGEN 27.7 mg/dL (7-18); CALCIUM 8.5 mg/dL (8.5-10.1)
[2020-06-06 11:26] LABS: BILIRUBIN,TOTAL 0.2 mg/dL (0.2-1); TOT PROT 6.3 g/dl (6.4-8.2)
[2020-06-06 17:28] VITALS: TEMP 98.2
[2020-06-06 17:45] VITALS: BP 124/70; PULSE 67
[2020-06-06] MEDS ORDERED: PORTA CATH FLUSH 10 ML IVPUSH ONE (17:45)
== END 2020-06-06 16:35 | disposition home or self-care (01) ==
LOC: JONCCHEMO 06:12
PROVIDERS: ATTEND Internal Medicine Hematology & Oncology
DX: Z51.11 Encounter for antineoplastic chemotherapy (principal); C17.0 Malignant neoplasm of duodenum
CPT/HCPCS: 36415; 80053; 85025; 96367; 96375; 96413; 96415; 96417; J1453; J2469; J9206; Q5107

== ENCOUNTER 2020-06-19 21:42 | Emergency (ER) | payer OTHER ==
[2020-06-19 22:01] VITALS: BMI 26.2
[2020-06-19] MEDS ORDERED: ACETAMINOPHEN 1000 MG/100 ML VIAL (NON FORMULARY) IVPB ONE (22:18)
[2020-06-19] MEDS ORDERED: LABETALOL HCL 5 MG/1 ML (100MG/20 ML VIAL) IVPUSH ONE (22:19)
[2020-06-19] MEDS ORDERED: ACETAMINOPHEN INJECTION 100 ML IVPB ONE (22:39)
[2020-06-19] MEDS ORDERED: LABETALOL HCL 5 MG/1 ML (200MG/40ML VIAL) IVPB ONE (22:40)
[2020-06-19 22:45] LABS: BASO % 0.4 % (0-2.0); EOS % 4.1 % (0-4.5); HEMATOCRIT 29.6 % (32.4-45.2); HEMOGLOBIN 9.4 GM/dL (10.7-15.3); LYMPH % 20.1 % (8-40); MCHC 31.7 g/dl (32.0-36.0); MEAN CELL VOLUME 78.7 fl (80-96); MONO % 9.2 % (3.8-10.2); NEUT % 66.2 % (42.8-82.8); PLATELET COUNT 280 K/MM3 (134-434); RBC 3.76 M/mm3 (3.60-5.2); RDW 19.5 % (11.6-15.6); WHITE BLOOD COUNT 7.6 K/mm3 (4.0-10.0)
[2020-06-19 22:52] LABS: MEAN PLT VOLUME 5.8 fl (7.5-11.1)
[2020-06-19 22:58] LABS: INR 0.97 (0.83-1.09); PROTHROMBIN TIME (PATIENT) 11.8 SEC (9.7-13.0)
[2020-06-19 23:00] LABS: ACTIVATED PTT 28.6 SECONDS (25.2-36.5)
[2020-06-20 00:27] LABS: CHLORIDE 100 mmol/L (98-107); POTASSIUM 4.4 mmol/L (3.5-5.1); SODIUM 132 mmol/L (136-145)
[2020-06-20 00:31] LABS: CALCIUM 8.5 mg/dL (8.5-10.1)
[2020-06-20 00:32] LABS: ANION GAP 10 MMOL/L (8-16); BLOOD UREA NITROGEN 20.5 mg/dL (7-18); CO2 22 mmol/L (21-32); GLUCOSE,RANDOM 106 mg/dL (74-106); MAGNESIUM 1.9 mg/dL (1.8-2.4)
[2020-06-20 00:35] LABS: BILIRUBIN,TOTAL 0.7 mg/dL (0.2-1); CREATININE 0.9 mg/dL (0.55-1.3); SGOT/AST 10 U/L (15-37); SGPT/ALT 18 U/L (13-61)
[2020-06-20 00:37] LABS: ALK PHOS 81 U/L (45-117); TOT PROT 6.1 g/dl (6.4-8.2)
[2020-06-20 07:03] VITALS: BP 170/64; PULSE 54; TEMP 98.6
== END 2020-06-20 06:30 | disposition home or self-care (01) ==
LOC: JER 21:42
PROC: 3E0333Z Introduction of Anti-inflammatory into Peripheral Vein, Percutaneous Approach (ICD-10-PCS; principal; 2020-06-19)
PROC: 3E033GC Introduction of Other Therapeutic Substance into Peripheral Vein, Percutaneous Approach (ICD-10-PCS; 2020-06-19)
DX: I10 Essential (primary) hypertension (principal)
CPT/HCPCS: 36415; 70450-TC; 71045-TC-FY; 80053; 82550; 83735; 84484; 85025; 85610; 85730; 86850; 86900; 86901; 93005; 93010; 99285-25; J0131

== ENCOUNTER 2020-06-20 10:50 | Emergency (ER) | payer OTHER ==
[2020-06-20 11:07] VITALS: PULSE 60; TEMP 98.5; BMI 25.4
[2020-06-20] MEDS ORDERED: NIFEdipine 10 MG CAPSULE (FP) PO ONE (12:52)
[2020-06-20] MEDS ORDERED: NIFEdipine E.R. 30 MG TABLET ONE (13:08)
[2020-06-20 13:33] VITALS: BP 185/94
== END 2020-06-20 14:24 | disposition home or self-care (01) ==
LOC: JER 10:50
DX: I10 Essential (primary) hypertension (principal)
CPT/HCPCS: 99283-25

== ENCOUNTER → 2020-06-20 | Day surgery (SDC) | payer OTHER ==
[~2020-06-20] MED LIST changes: +ATROPINE SO4 0.4 MG/1 ML VIAL IVPUSH ONE; -ATROPINE SULFATE 1 MG/10 ML DISP.SYRIN IVPUSH ONE; -FOSAPREPITANT DIMEGLUMINE 150 MG in SODIUM CHLORIDE 145 ML IVPB ONE; +FOSAPREPITANT DIMEGLUMINE 150 MG in SODIUM CHLORIDE 150 ML IVPB ONE; +IRINOTECAN HCL 230 MG in DEXTROSE 5%-WATER - 500 ML IVPB ONE; -IRINOTECAN HCL 240 MG in DEXTROSE 5%-WATER - 500 ML IVPB ONE
[2020-06-20 10:33] LABS: BASO % 0.3 % (0-2.0); HEMATOCRIT 29.1 % (32.4-45.2); HEMOGLOBIN 9.4 GM/dL (10.7-15.3); LYMPH % 18.8 % (8-40); MCH 25.8 pg (25.7-33.7); MCHC 32.2 g/dl (32.0-36.0); MEAN CELL VOLUME 80.1 fl (80-96); MEAN PLT VOLUME 6.2 fl (7.5-11.1); MONO % 9.1 % (3.8-10.2); NEUT % 67.8 % (42.8-82.8); PLATELET COUNT 297 K/MM3 (134-434); RBC 3.64 M/mm3 (3.60-5.2); RDW 19.2 % (11.6-15.6); WHITE BLOOD COUNT 7.3 K/mm3 (4.0-10.0)
[2020-06-20 10:56] LABS: POTASSIUM 5.1 mmol/L (3.5-5.1)
[2020-06-20 10:57] LABS: CALCIUM 8.6 mg/dL (8.5-10.1)
[2020-06-20 10:58] LABS: BLOOD UREA NITROGEN 23.9 mg/dL (7-18)
[2020-06-20 11:01] LABS: CREATININE 1.1 mg/dL (0.55-1.3)
[2020-06-20 11:02] LABS: BILIRUBIN,TOTAL 0.2 mg/dL (0.2-1); TOT PROT 6.2 g/dl (6.4-8.2)
== END | disposition home or self-care (01) ==
LOC: JONCCHEMO 06:19
PROVIDERS: ATTEND Internal Medicine Hematology & Oncology
PROC: 3E013GC Introduction of Other Therapeutic Substance into Subcutaneous Tissue, Percutaneous Approach (ICD-10-PCS; principal; 2020-06-20)
DX: Z53.8 Procedure and treatment not carried out for other reasons (principal)
CPT/HCPCS: 36415; 80053; 83735; 85025; 96365

== ENCOUNTER 2020-07-04 06:10 | Day surgery (SDC) | payer OTHER ==
[2020-07-04] MEDS ORDERED: PALONOSETRON HCL 0.25 MG/5 ML VIAL IVPUSH ONE (09:30)
[2020-07-04] MEDS ORDERED: ATROPINE SULFATE 1 MG/10 ML DISP.SYRIN IVPUSH ONE (09:30)
[2020-07-04] MEDS ORDERED: DEXAMETHASONE SODIUM PHOSPHATE 10 MG in SODIUM CHLORIDE 50 ML IVPB ONE (09:30)
[2020-07-04] MEDS ORDERED: FOSAPREPITANT DIMEGLUMINE 150 MG in SODIUM CHLORIDE 150 ML IVPB ONE (09:30)
[2020-07-04] MEDS ORDERED: BEVACIZUMAB AWWB IVPB ONE (10:00)
[2020-07-04] MEDS ORDERED: SODIUM CHLORIDE IVPB ONE (10:00)
[2020-07-04 10:12] LABS: BASO % 0.4 % (0-2.0); EOS % 10.7 % (0-4.5); HEMATOCRIT 26.5 % (32.4-45.2); HEMOGLOBIN 8.4 GM/dL (10.7-15.3); LYMPH % 12.1 % (8-40); MCH 25.3 pg (25.7-33.7); MCHC 31.7 g/dl (32.0-36.0); MEAN CELL VOLUME 79.8 fl (80-96); MEAN PLT VOLUME 6.7 fl (7.5-11.1); MONO % 5.7 % (3.8-10.2); NEUT % 71.1 % (42.8-82.8); PLATELET COUNT 338 K/MM3 (134-434); RBC 3.32 M/mm3 (3.60-5.2); RDW 18.7 % (11.6-15.6); WHITE BLOOD COUNT 8.5 K/mm3 (4.0-10.0)
[2020-07-04 10:29] LABS: POTASSIUM 5.1 mmol/L (3.5-5.1)
[2020-07-04] MEDS ORDERED: IRINOTECAN HCL 230 MG in DEXTROSE 5%-WATER - 500 ML IVPB ONE (10:30)
[2020-07-04 10:32] LABS: ALBUMIN 2.7 g/dl (3.4-5.0); BLOOD UREA NITROGEN 24.1 mg/dL (7-18); CALCIUM 8.6 mg/dL (8.5-10.1); MAGNESIUM 1.9 mg/dL (1.8-2.4)
[2020-07-04 10:37] LABS: BILIRUBIN,TOTAL 0.8 mg/dL (0.2-1); TOT PROT 5.5 g/dl (6.4-8.2)
[2020-07-04 16:31] VITALS: TEMP 97.5
[2020-07-04 16:52] VITALS: BP 164/77; PULSE 61
[2020-07-04] MEDS ORDERED: PORTA CATH FLUSH 10 ML IVPUSH ONE (16:52)
== END 2020-07-04 16:15 | disposition home or self-care (01) ==
LOC: JONCCHEMO 06:10
PROVIDERS: ATTEND Internal Medicine Hematology & Oncology
DX: Z51.11 Encounter for antineoplastic chemotherapy (principal); C17.0 Malignant neoplasm of duodenum
CPT/HCPCS: 36415; 80053; 82378; 82607; 82728; 82747; 83540; 83550; 83735; 85014; 85025; 96367; 96375; 96413; 96417; J1453; J2469; J9206; Q5107